=== PATIENT | male | born 1960 | race Caucasian/White ===

== ENCOUNTER → 2020-07-17 14:54 | Outpatient (BNVA) | payer MEDICARE, MEDICAID, SELFPAY | PROVIDERS: PCP Internal Medicine; Referring Provider Internal Medicine; Visit Provider Nurse Practitioner | DX: K75.81 Nonalcoholic steatohepatitis (NASH) (principal); K21.9 Gastro-esophageal reflux disease without esophagitis; R19.7 Diarrhea, unspecified; Z79.899 Other long term (current) drug therapy | CPT/HCPCS: 99213 ==

== ENCOUNTER 2020-07-24 17:14 | Outpatient (REF) | payer MEDICARE, MEDICAID, SELFPAY ==
--- NOTE | 2020-07-24 | XR_ITS ---
EXAMINATION: XR KNEE, RIGHT CLINICAL INFORMATION: Pain COMPARISON: Previous x-ray January 2016 TECHNIQUE: Four views of the right knee. FINDINGS: Bone alignment is normal. No fracture or dislocation is seen. There is arthritis at the patellofemoral joint with joint space narrowing and osteophyte formation. There are large osteophytes at the quadriceps tendon insertion and patellar tendon origin and insertion. There is no joint effusion. IMPRESSION: Degenerative change at the patellofemoral joint and patellar tendon and quadriceps tendon osteophytes.
== END 2020-07-24 17:15 | disposition home or self-care (01) ==
LOC: HO.XRAY 17:14
PROVIDERS: PCP Internal Medicine; Visit Provider Internal Medicine
DX: M25.561 Pain in right knee (principal)
CPT/HCPCS: 73564

== ENCOUNTER 2020-08-19 13:54 | Outpatient (REF) | payer MEDICARE, MEDICAID, SELFPAY ==
--- NOTE | 2020-08-19 13:59 | US_ITS ---
EXAMINATION: US ABDOMEN LIMITED CLINICAL INFORMATION: Nonalcoholic steatohepatitis. COMPARISON: Ultrasound abdomen 01/27/2020 and 12/19/2016. CT abdomen 09/25/2008. TECHNIQUE: Real-time imaging of the right upper quadrant abdominal viscera. FINDINGS: PANCREAS: Normal. LIVER: Liver echotexture is increased suggestive of fatty infiltration. There is a hypoechoic area adjacent to the gallbladder, a characteristic location of focal fatty sparing. The liver is enlarged. The liver is normal in contour. There is no intrahepatic biliary duct dilatation seen. GALLBLADDER: Surgically absent. COMMON BILE DUCT: Normal in caliber measuring 0.5 cm in diameter. RIGHT KIDNEY: Normal. No hydronephrosis. No renal calculi or focal parenchymal lesions. The kidney measures 12.5 cm in maximum dimension. FREE FLUID: None. US/US abdomen limited IMPRESSION: Enlarged echogenic liver suggestive of fatty infiltration.
== END 2020-08-19 13:55 | disposition home or self-care (01) ==
LOC: HO.US 13:54
PROVIDERS: Visit Provider Nurse Practitioner
DX: K75.81 Nonalcoholic steatohepatitis (NASH) (principal)
CPT/HCPCS: 76705

== ENCOUNTER 2020-12-01 | Outpatient (REF) | payer MEDICARE, MEDICAID, SELFPAY ==
--- NOTE | ~2020-12-01 | XR_ITS ---
EXAMINATION: AP STANDING VIEW OF BOTH KNEES WELL SUNRISE AND LATERAL VIEWS OF BOTH KNEES. CLINICAL INFORMATION: Bilateral knee pain COMPARISON: July 24, 2020 and February 09, 2016 TECHNIQUE: AP standing views of both knees as well as sunrise and lateral views of both knees FINDINGS: There is no evidence of acute fracture or dislocation of the right knee. There is narrowing of the lateral facet of the patellofemoral joint with degenerative spurring. There is mild narrowing of the medial joint space compartment of the right knee. No effusion. Patella spurs sites insertion of quadriceps and patellar tendons also noted. 3 views of the left knee do not demonstrate any evidence of acute fracture or dislocation. Medial, lateral, and patellofemoral joint spaces are maintained. There is some spurring about the lateral patellofemoral joint. No effusion appreciated. No significant change seen compared to prior studies. XR/XR knee RT 2V IMPRESSION: Bilateral patellofemoral joint disease right greater than left as described.
--- NOTE | ~2020-12-01 | XR_ITS ---
EXAMINATION: AP STANDING VIEW OF BOTH KNEES WELL SUNRISE AND LATERAL VIEWS OF BOTH KNEES. CLINICAL INFORMATION: Bilateral knee pain COMPARISON: July 24, 2020 and February 09, 2016 TECHNIQUE: AP standing views of both knees as well as sunrise and lateral views of both knees FINDINGS: There is no evidence of acute fracture or dislocation of the right knee. There is narrowing of the lateral facet of the patellofemoral joint with degenerative spurring. There is mild narrowing of the medial joint space compartment of the right knee. No effusion. Patella spurs sites insertion of quadriceps and patellar tendons also noted. 3 views of the left knee do not demonstrate any evidence of acute fracture or dislocation. Medial, lateral, and patellofemoral joint spaces are maintained. There is some spurring about the lateral patellofemoral joint. No effusion appreciated. No significant change seen compared to prior studies. XR/XR knee LT 2V IMPRESSION: Bilateral patellofemoral joint disease right greater than left as described.
--- NOTE | ~2020-12-01 | XR_ITS ---
EXAMINATION: AP STANDING VIEW OF BOTH KNEES WELL SUNRISE AND LATERAL VIEWS OF BOTH KNEES. CLINICAL INFORMATION: Bilateral knee pain COMPARISON: July 24, 2020 and February 09, 2016 TECHNIQUE: AP standing views of both knees as well as sunrise and lateral views of both knees FINDINGS: There is no evidence of acute fracture or dislocation of the right knee. There is narrowing of the lateral facet of the patellofemoral joint with degenerative spurring. There is mild narrowing of the medial joint space compartment of the right knee. No effusion. Patella spurs sites insertion of quadriceps and patellar tendons also noted. 3 views of the left knee do not demonstrate any evidence of acute fracture or dislocation. Medial, lateral, and patellofemoral joint spaces are maintained. There is some spurring about the lateral patellofemoral joint. No effusion appreciated. No significant change seen compared to prior studies. XR/XR knee standing BI IMPRESSION: Bilateral patellofemoral joint disease right greater than left as described.
== END 2020-12-01 00:01 | disposition home or self-care (01) ==
LOC: HO.HOSX
PROVIDERS: Visit Provider Orthopaedic Surgery
DX: M25.562 Pain in left knee (principal); M25.561 Pain in right knee
CPT/HCPCS: 73560; 73565

== ENCOUNTER → 2020-12-01 13:30 | Outpatient (BNVA) | payer MEDICARE, MEDICAID, SELFPAY | PROVIDERS: PCP Internal Medicine; Visit Provider Orthopaedic Surgery | DX: M17.11 Unilateral primary osteoarthritis, right knee (principal) | CPT/HCPCS: 20610; 99202; J1040 ==

== ENCOUNTER → 2021-01-12 14:48 | Outpatient (BNVA) | payer MEDICARE, MEDICAID, SELFPAY | PROVIDERS: Visit Provider Orthopaedic Surgery | DX: M17.11 Unilateral primary osteoarthritis, right knee (principal) | CPT/HCPCS: 99212 ==

== ENCOUNTER 2021-01-21 15:00 | Outpatient (RCR) | payer MEDICARE, MEDICAID, SELFPAY | END 2021-02-19 07:43 | disposition home or self-care (01) | LOC: HO.PTCHIC 15:00 | PROVIDERS: PCP Internal Medicine; Visit Provider Internal Medicine | DX: M25.561 Pain in right knee (principal) | CPT/HCPCS: 97110; 97162; 97530 ==

== ENCOUNTER 2021-03-15 15:56 | Emergency (ER) | payer MEDICARE, MEDICAID, SELFPAY ==
[2021-03-15 16:32] VITALS: BP 147/58; PULSE 73; RESP 20; TEMP 36.3; O2SAT 97; BMI 34.0
[2021-03-15 16:54] LABS: Glucose Urine UA 100 MG/DL (NEG); Leukocyte Esterase Urine NEG (NEG); Nitrite Urine NEG (NEG); Urine Blood NEG (NEG); Urine Ketones NEG (NEG); Urine Protein NEG (NEG-TRACE)
[2021-03-15 16:56] LABS: Appearance Urine CLEAR; Color Urine YELLOW
[2021-03-15 18:08] VITALS: BP 135/71; PULSE 72; RESP 16; TEMP 36.8; O2SAT 96
--- NOTE | 2021-03-15 18:26 | ED_ITS ---
HPI - Back Pain/Injury General Chief Complaint: Back Pain/Injury Stated Complaint: back pain Time Seen by Provider: 03/15/21 17:22 Source: patient Mode of arrival: ambulatory Limitations: no limitations History of Present Illness HPI Narrative: 61 year old male with a past medical history of osteoarthritis, [place], gout, GERD, depression, [id number] diabetes, IBS, chronic back pain here with complaints of acute on chronic right lower back pain times the last 2 months. No new injury or trauma. Patient tells me he has had chronic back pain for years and has had multiple CTs and MRIs which show a ?pinched nerve? taken. It has been recommended that he have cortisone injections but he declined these. He is currently taking gabapentin for pain but his pain is worsening. Pain radiates into bilateral legs with weakness which he has also had for months. No associated numbness, tingling, incontinence. No fevers or chills. The patient is ambulatory. MD elicited complaint: back pain Related Data Home Medications Medication Instructions Recorded Confirmed allopurinol 300 mg tablet 300 mg PO BID 07/17/20 08/13/20 cholecalciferol (vitamin D3) 25 25 mcg PO DAILY 07/17/20 08/13/20 mcg (1,000 unit) tablet clonidine HCl 0.1 mg tablet 0.1 mg PO BID 07/17/20 08/13/20 fenofibrate nanocrystallized 48 mg 48 mg PO DAILY 07/17/20 08/13/20 tablet fluoxetine 20 mg capsule 60 mg PO 07/17/20 07/17/20 gabapentin 800 mg tablet 800 mg PO TID 07/17/20 08/13/20 ibuprofen 800 mg tablet mg PO Q6-8H PRN 07/17/20 07/17/20 lancets 28 gauge #100 ea 07/17/20 07/17/20 magnesium chloride 70 mg 70 mg PO DAILY 07/17/20 08/13/20 (magnesium chloride) tablet,delayed release omeprazole 20 mg capsule,delayed 40 mg PO BID 07/17/20 08/13/20 release simvastatin 10 mg tablet 20 mg PO BEDTIME 07/17/20 08/13/20 triamterene 37.5 1 tab PO DAILY 07/17/20 08/13/20 mg-hydrochlorothiazide 25 mg tablet Previous Rx's Medication Instructions Recorded oxycodone 5 mg PO Q6H PRN #10 tab 05/31/21 Allergies Allergy/AdvReac Type Severity Reaction Status Date / Time prednisone AdvReac Unknown Verified 03/15/21 16:32 Review of Systems Review of Systems: Yes all other systems are reviewed and are negative Constitutional: Constitutional: Reports no additional constitutional complaints, Denies body ache(s), Denies chills, Denies fever(s), Denies headac he(s) and Denies weakness Eyes: Eyes: Reports no additional eye complaints and Denies change in vision ENT: Reports system reviewed and no additional complaints, except as documented, Denies dizziness, Denies headache(s), Denies nasal congestion, Denies nasal discharge and Denies neck pain Cardiovascular: Cardiovascular: Reports no additional cardiovascular complaints, Denies chest pain, Denies leg edema and Denies dyspnea Respiratory: Respiratory: Reports no additional respiratory complaints, Denies cough and Denies dyspnea Gastrointestinal: Gastrointestinal: Reports no additional gastrointestinal complaints, Denies abdominal pain, Denies diarrhea, Denies nausea and Denies vomiting Genitourinary: Genitourinary: Denies urinary incontinence Musculoskeletal: Musculoskeletal: Reports no additional musculoskeletal complaints, Reports back pain, Denies arthralgias, Denies joint swelling, Denies neck pain, Denies numbness and Denies tingling Integumentary/Breasts: Skin/Breast: Reports system reviewed and no additional complaints, except as docu and Denies rash Neurologic: Reports system reviewed and no additional complaints, except as documented, Denies Abnormal speech present, Denies dizziness, Denies headache(s), Denies numbness, Denies tingling and Denies weakness FOR[facility]LY [facility] Past Medical History Attestation statement: The following information was validated with the patient. Source: old records reviewed and nursing notes reviewed Medical History Diabetes mellitus Hepatic steatosis History of alcohol abuse Sleep apnea Testicular cancer Surgical History History of orchiectomy Hx of colonoscopy Hx of neck surgery (~02/2020) S/P orchiectomy Family History Family History Mother Hep C w/ coma, chronic Diabetes Father No problems noted. Brother High blood pressure Social History Social History Alcohol intake: former Substance Use Type: Marijuana Advance Directives: No Advance Directives Information Provided: Yes Current occupation: [employer]aning [employer] Physical Exam Vital Signs: Vital Signs: Last Vital Signs Temp 98.3 F 03/15/21 18:08 Pulse 72 03/15/21 18:08 Resp 16 03/15/21 18:08 BP 135/71 03/15/21 18:08 Pulse Ox 96 03/15/21 18:08 Body Mass Index 34.0 Const: General: cooperative, healthy appearing, comfortable and no acute distress Orientation/consciousness: patient oriented x3 Limitations: no limitations HENMT: Head: Yes normal to inspection Ears: hearing grossly normal bilaterally General nose exam: Normal external nose present Face and sinus: Yes normal facial exam Mouth: Normal oral and palatal mucosa present Throat: Yes posterior oropharynx normal Eyes: General: appearance normal, both eyes and all related structures Pupils: Equal, round and reactive pupils present Neck: Neck: Yes normal visual inspection Chest: Chest palpation & inspection: normal inspection of the chest Resp: Effort & Inspection: normal respiratory effort Auscultation: clear to auscultation bilaterally Cardio: Rate: regular rate Rhythm: regular rhythm Peripheral pulses: Peripheral pulses 2+ throughout GI: Inspection: Yes normal to inspection Palpation (GI): Soft to palpation and nontender Auscultation: normal bowel sounds Back/Spine/Pelvis: Other: There is no midline tenderness in the lumbar spine. No step-offs or deformities Thoracic/Lumbar Spine: thoracic and lumbar spine normal to inspection Sacroiliac joints: on the right tender to palpation, by compression of iliac crest and by passive hyperextension of lower ext Skin: General skin exam: no rashes or lesions noted Neuro: Other: Bilateral lower extremities 4/5 strength General: patient oriented x3, no focal motor deficits and normal sensation to monofilament Cranial nerves: Yes CN's II-XII intact bilaterally, Yes Equal, round and reactive pupils present, Yes Bilaterally intact EOM present, Yes Nystagmus not present, Yes Normal facial strength present and Yes Midline tongue present Cognition (Neuro): normal cognition Speech: No Abnormal speech present Sensory Exam: Normal double simultaneous stimulation for sensation Deep tendon reflexes (DTR's): Right patellar reflex intensity grade: 2+ and Left patellar reflex intensity grade: 2+ Extrem: General: Yes normal to inspection, Yes no pedal edema and Yes no calf tenderness Course Course Course Narrative: 61-year-old male here with acute on chronic low back pain. On exam the patient has no midline tenderness, step-offs or deformities. He does have significant pain over the right SI joint. No neurological deficits or red flag symptoms. No fall or injury requiring imaging. I discussed with the patient that he likely will need a diagnostic test under fluoroscopy with injection and he should follow up with his primary care doctor to request this. In the meantime we discussed a very small amount of narcotic pain medications. Reviewed [employer] with no active narcotics >6 months. Reviewed worrisome signs and symptoms such as progressive weakness, incontinence, paresthesias and when to return to the emergency department. Comfortable discharge home. MDM - Back Pain/Injury Lab Data Labs: Lab Results 03/15/21 Range/Units 16:46 Urine Color YELLOW Urine Appearance CLEAR Urine pH 6.0 (5.0-8.0) Ur Specific [place] 1.020 (1.005-1.025) Urine Protein NEG (NEG-TRACE) MG/DL Urine Glucose (UA) 100 H (NEG) MG/DL Urine Ketones NEG (NEG) MG/DL Urine Blood NEG (NEG) Urine Nitrite NEG (NEG) Ur Leukocyte Esterase NEG (NEG) Discharge Plan Discharge Clinical Impression: SI (sacroiliac) joint inflammation Patient Disposition: Home, Self-Care Instructions: Sacroiliitis (ED), Sacroiliac Joint Injection (DC) Additional Instructions: You have point tenderness over your SI joint. The BEST test and treatment for this is a diagnostic fluoroscopy with injection. This is done by a interventional radiologist and can be set up by your primary care doctor. Heat or ice if helpful. No heavy lifting or bending Prescriptions: New oxycodone 5 mg tablet 5 mg PO Q6H PRN (Reason: pain) Qty: 10 RF: 0 No Action ibuprofen 800 mg tablet PO Q6-8H PRN (Reason: Pain) RF: 0 fluoxetine 20 mg capsule 60 mg PO RF: 0 triamterene-hydrochlorothiazid 37.5-25 mg tablet 1 tab PO DAILY RF: 0 magnesium chloride 70 mg tablet,delayed release (DR/EC) 70 mg PO DAILY RF: 0 cholecalciferol (vitamin D3) 25 mcg (1,000 unit) tablet 25 mcg PO DAILY RF: 0 gabapentin 800 mg tablet 800 mg PO TID RF: 0 (DME) lancets 28 gauge misc See Rx Instructions lancet topical BID Qty: 100 RF: 0 clonidine HCl 0.1 mg tablet 0.1 mg PO BID RF: 0 fenofibrate nanocrystallized 48 mg tablet 48 mg PO DAILY RF: 0 allopurinol 300 mg tablet 300 mg PO BID RF: 0 omeprazole 20 mg capsule,delayed release(DR/EC) 40 mg PO BID RF: 0 simvastatin 10 mg tablet 20 mg PO BEDTIME RF: 0 Referrals: Jud Meza MD [Primary Care Provider] - 2 days
== END 2021-03-15 18:36 | disposition home or self-care (01) ==
PROVIDERS: Emergency Medicine Emergency Medical Services; Emergency Provider Emergency Medicine; PCP Internal Medicine
DX: M46.1 Sacroiliitis, not elsewhere classified (principal); E11.9 Type 2 diabetes mellitus without complications; E78.00 Pure hypercholesterolemia, unspecified; K75.81 Nonalcoholic steatohepatitis (NASH); M17.11 Unilateral primary osteoarthritis, right knee; F12.90 Cannabis use, unspecified, uncomplicated; Z85.47 Personal history of malignant neoplasm of testis; Z79.899 Other long term (current) drug therapy; Z79.02 Long term (current) use of antithrombotics/antiplatelets
CPT/HCPCS: 81003; 99283; 99284

== ENCOUNTER → 2021-03-23 14:18 | Outpatient (BNVA) | payer MEDICARE, MEDICAID, SELFPAY | PROVIDERS: PCP Internal Medicine; Visit Provider Orthopaedic Surgery | DX: M17.11 Unilateral primary osteoarthritis, right knee (principal) | CPT/HCPCS: 20610; 99212; J1040 ==

== ENCOUNTER → 2021-04-08 13:19 | Outpatient (BNVA) | payer MEDICARE, MEDICAID, SELFPAY | PROVIDERS: PCP Internal Medicine; Visit Provider Anesthesiology | DX: M46.1 Sacroiliitis, not elsewhere classified (principal); M53.3 Sacrococcygeal disorders, not elsewhere classified; M47.817 Spondylosis without myelopathy or radiculopathy, lumbosacral region; G89.4 Chronic pain syndrome | CPT/HCPCS: 99212 ==

== ENCOUNTER 2021-06-08 07:40 | Outpatient (REF) | payer MEDICARE, MEDICAID, SELFPAY ==
--- NOTE | ~2021-06-08 | FL_ITS ---
EXAMINATION: XR FLUOROSCOPY WITH IMAGES CLINICAL INFORMATION: M53.3 - Sacrococcygeal disorders, not elsewhere classified COMPARISON: Fluoroscopic spot view 05/12/2020 TECHNIQUE: Fluoroscopy performed by Yelena Hernandez NP. Fluoroscopy time: 0.1 minutes DAP: 2.9 Gycm2 Images: 1 FINDINGS: There is a spinal needle overlying lower right sacroiliac joint. There is nonspecific contrast seen in the soft tissues. There may be contrast in a sacral neural sheath. No vascular communication. FL/FL guidance in treatment room IMPRESSION: Fluoroscopy for pain management procedure.
== END 2021-06-08 07:41 | disposition home or self-care (01) ==
LOC: HO.RADIR 07:40
PROVIDERS: Visit Provider Anesthesiology
DX: M53.3 Sacrococcygeal disorders, not elsewhere classified (principal); M47.817 Spondylosis without myelopathy or radiculopathy, lumbosacral region; G89.4 Chronic pain syndrome
CPT/HCPCS: 27096; J3300; Q9967

== ENCOUNTER → 2021-06-28 17:04 | Outpatient (BNVA) | payer MEDICARE, MEDICAID, SELFPAY | PROVIDERS: PCP Internal Medicine; Visit Provider Anesthesiology | DX: M46.1 Sacroiliitis, not elsewhere classified (principal); M53.3 Sacrococcygeal disorders, not elsewhere classified; M47.817 Spondylosis without myelopathy or radiculopathy, lumbosacral region; G89.4 Chronic pain syndrome | CPT/HCPCS: Q3014 ==

== ENCOUNTER 2021-09-08 14:08 | Outpatient (REF) | payer MEDICARE, MEDICAID, SELFPAY ==
--- NOTE | ~2021-09-08 | US_ITS ---
EXAMINATION: US SOFT TISSUE OF THE NECK CLINICAL INFORMATION: Swelling of salivary gland. COMPARISON: None TECHNIQUE: Linear transducer grayscale and color Doppler examination of the left parotid gland. Comparison images of the right parotid gland were performed. FINDINGS: There are 2 focal lesions seen in the left parotid gland probably representing intraparotid lymph nodes. These measure 1.2 x 0.7 x 1.0 cm and 1.4 x 1.0 x 1.2 cm. There is a solitary lesion in the right parotid gland also probably representing a lymph node. This measures 1.3 x 0.6 x 0.4 cm. US/US soft tiss head and/or neck IMPRESSION: Bilateral parotid lesions probably representing intraparotid lymph nodes.
== END 2021-09-08 14:09 | disposition home or self-care (01) ==
LOC: HO.HMGCX 14:08
PROVIDERS: PCP Internal Medicine; Visit Provider Internal Medicine
DX: R22.1 Localized swelling, mass and lump, neck (principal)
CPT/HCPCS: 76536

== ENCOUNTER 2021-11-17 14:36 | Outpatient (REF) | payer MEDICARE, MEDICAID, SELFPAY ==
--- NOTE | ~2021-11-17 | MR_ITS ---
EXAMINATION: MRI OF THE RIGHT FOOT WITHOUT CONTRAST CLINICAL INFORMATION: Right ankle and foot pain. Calcific tendinitis. COMPARISON: Radiographs dated 08/25/2017. TECHNIQUE: Multiplanar MR imaging was obtained through the right foot without contrast material on a 1.5 Cinda magnet. FINDINGS: ACHILLES TENDON: There is a large enthesopathic spur at the Achilles tendon insertion with associated marrow edema. A partial-thickness insertional tear of the Achilles involves the deep fibers measures 0.7 x 0.7 cm in area, involving approximately 15% of the tendon cross-section. The tendon is thickened in this region, consistent with tendinosis. There is reactive subcortical edema at the greater tuberosity as well as mild retrocalcaneal bursitis. OTHER TENDONS: Mild peroneus brevis tendinosis. No significant tears. Extensor and medial flexor tendons are normal. LIGAMENTS: Anterior talofibular ligament is mildly thickened and irregular, potentially due to a prior sprain. No tears. Punctate ossific fragments in the region of the deltoid ligament likely correlate with an old avulsion injury. No acute deltoid tears or sprains. Spring ligament is normal. BONE AND ARTICULAR CARTILAGE: As noted above, there is focal marrow edema signal in the calcaneal tuberosity posteriorly at the Achilles tendon insertion. Large enthesopathic spur. Moderate-sized enthesopathic spur is present at the plantar fascial origin. Talocrural and subtalar joints appear relatively well preserved. JOINT FLUID AND SOFT TISSUES: There is edema signal within K[place]'s fat pad posteriorly near the Achilles tendon insertion. No significant joint effusion. MR/MR foot RT wo con IMPRESSION: 1. Large, edematous enthesopathic spur at the Achilles tendon insertion with a small insertional partial tear of the deep fibers and associated tendinosis. There is associated reactive calcaneal marrow edema at the insertion as well as mild retrocalcaneal bursitis. No appreciable Elvin deformity. 2. Mild peroneus brevis tendinosis.
--- NOTE | ~2021-11-17 | MR_ITS ---
EXAMINATION: MR LUMBAR SPINE WITHOUT CONTRAST CLINICAL INFORMATION: 61-year-old with lumbar radiculopathy. COMPARISON: 01/02/2020 MRI. TECHNIQUE: MRI of the lumbar spine was obtained using routine sequences without contrast. FINDINGS: CORONAL ALIGNMENT: Normal. SAGITTAL ALIGNMENT: Normal. LUMBOSACRAL JUNCTION: Normal. S1-S2 is a rudimentary intervertebral disc space. VERTEBRAL BODIES: Well maintained. DISC SPACES AND ENDPLATES: Mild disc volume loss with disc desiccation noted at L5-S1 similar to previous study. Remaining intervertebral disc space heights are well maintained stable in appearance with moderate degrees of anterior marginal spondylosis between L1-L2 and L4-L5 inclusive stable in appearance. Minimal degrees of disc desiccation are seen throughout the remainder of the lumbar spine unchanged. SPINAL CANAL: No abnormal developmental findings. BONE MARROW: No significant marrow-replacing process or bone marrow edema. 2 cm benign vertebral hemangioma within the L2 vertebral body stable in appearance. Small, subcentimeter, nonspecific intramedullary lesion in the S2 vertebral segments stable in appearance from previous exam likely a benign finding. CONUS MEDULLARIS: Terminates at L1-L2. Morphology and signal is normal. INTRADURAL NERVE ROOTS: Within normal limits. L5-S1: Mild disc bulging is similar to the previous exam. [id number] facet arthropathy and ligamentum flavum thickening are grossly similar. On the current study, note is made of a new 7 mm crescent-shaped T2 hyperintensity along the medial aspect of the right facet joint suggesting a small synovial cyst which has developed since the previous study, encroaching on the right subarticular recess. A sequestered disc fragment is thought to be less likely. There is severe narrowing of the right subarticular zone and probable compromise of the traversing right S1 nerve root. Redemonstrated is moderate narrowing of the left subarticular zone. Moderate central spinal canal stenosis is noted on current study in the transverse plane. There is mild bilateral neural foraminal narrowing without exiting neural impingement unchanged. L4-L5: Disc bulging again noted similar to the previous exam with flattening of the ventral dural sac. Ligamentum flavum thickening and moderate bilateral facet arthropathy similar to the previous exam with [id number] symmetric subarticular recess stenosis stable in appearance and mild central spinal canal stenosis stable in appearance. There is mild right-sided neural foraminal stenosis stable in appearance. L3-L4: Slight annular bulging again noted. [id number] facet arthropathy right more than left and ligamentum flavum thickening are stable. No significant canal stenosis. Mild right-sided neural foraminal stenosis is stable in appearance. L2-L3: Normal disc contour. No significant facet arthrosis, canal or neural foraminal stenosis. L1-L2: Normal disc contour. No facet arthrosis, canal or neural foraminal stenosis. PARASPINAL/RETROPERITONEAL: The paravertebral soft tissues appear unremarkable. MR/MR lumbar spine wo con IMPRESSION: 1. Stable multilevel spondylosis and stable predominately L5-S1 discogenic degenerative change. Stable multilevel disc bulging and bilateral facet arthropathy. 2. Development of what appears to be a small synovial cyst along the medial aspect of the right L5-S1 facet joint versus, less likely, a sequestered disc fragment, now contributing to severe right subarticular recess stenosis and probable right S1 nerve root impingement and now with moderate central spinal canal stenosis which has developed since the previous exam, with stable moderate left subarticular recess stenosis and stable mild bilateral neural foraminal stenosis. 3. Stable mild central spinal canal stenosis and [id number] bilateral subarticular recess stenosis at L4-L5 and stable mild right-sided neural foraminal stenosis. 4. Stable mild right-sided neural foraminal stenosis at L3-L4.
== END 2021-11-17 14:37 | disposition home or self-care (01) ==
LOC: HO.MRI 14:36
PROVIDERS: PCP Internal Medicine; Visit Provider Internal Medicine
DX: M54.16 Radiculopathy, lumbar region (principal); M65.271 Calcific tendinitis, right ankle and foot
CPT/HCPCS: 72148; 73718

== ENCOUNTER 2022-08-05 13:56 | Outpatient (REF) | payer MEDICARE, MEDICAID, SELFPAY ==
--- NOTE | ~2022-08-05 | US_ITS ---
EXAMINATION: US RETROPERITONEAL LIMITED (RENAL ONLY) CLINICAL INFORMATION: Chronic kidney disease, stage I. COMPARISON: Ultrasound abdomen limited 08/19/2020. Ultrasound abdomen complete 01/27/2020. TECHNIQUE: Real-time imaging of the kidneys. FINDINGS: RIGHT KIDNEY: 12.3 x 4.8 x 6.1 cm (SAG x AP x TRV). The kidney is normal in size, contour, and echogenicity. Renal cortical thickness is normal. No calculi or focal parenchymal lesions. No hydronephrosis. LEFT KIDNEY: 12.5 x 5.9 x 5.7 cm (SAG x AP x TRV). The kidney is normal in size, contour, and echogenicity. Renal cortical thickness is normal. There is a small cyst in the midpole measuring 1 x 0.7 x 0.8 cm. No renal calculi or hydronephrosis. The liver is echogenic. US/US renal BI IMPRESSION: Small left renal cyst otherwise unremarkable exam.
== END 2022-08-05 13:57 | disposition home or self-care (01) ==
LOC: HO.US 13:56
PROVIDERS: Visit Provider Internal Medicine
DX: N18.1 Chronic kidney disease, stage 1 (principal)
CPT/HCPCS: 76775

== ENCOUNTER 2023-01-02 13:29 | Outpatient (REF) | payer MEDICARE, MEDICAID, SELFPAY ==
--- NOTE | ~2023-01-02 | XR_ITS ---
EXAMINATION: XR WRIST, LEFT CLINICAL INFORMATION: Wrist pain COMPARISON: None available. TECHNIQUE: Left wrist is imaged in 4 views. FINDINGS: There is no acute or healing fracture, dislocation, destructive process. The ulnar variance is neutral. There is no erosive change or chondrocalcinosis. There are some borderline degenerative changes lateral carpus at the triscaphe joint. Spurring is present at the lateral base second metacarpal. XR/XR wrist LT min 3V IMPRESSION: -No fracture, dislocation, or erosive change. -Borderline degenerative changes lateral carpus at triscaphe joint. -Spurring lateral base second metacarpal.
--- NOTE | ~2023-01-02 | XR_ITS ---
EXAMINATION: XR LUMBOSACRAL SPINE CLINICAL INFORMATION: Back pain. COMPARISON: X-ray lumbosacral spine March 2019. MRI lumbar sacral spine November 2021. TECHNIQUE: 3 views of the lumbosacral spine. FINDINGS: Vertebral bodies normally aligned. There is endplate osteophytes and/or syndesmophytes noted throughout the lumbar region unchanged compared to prior. Mild disc space narrowing at the L5-S1 level indicative of mild degenerative disc disease but unchanged. Facets are unremarkable. Surrounding bones and joints unremarkable. XR/XR lumbar spine 2-3V IMPRESSION: 1. Mild spondylosis of lumbosacral spine unchanged 2. No acute abnormality.
== END 2023-01-02 13:30 | disposition home or self-care (01) ==
LOC: HO.XRAY 13:29
PROVIDERS: PCP Internal Medicine; Visit Provider Family Medicine
DX: M47.819 Spondylosis without myelopathy or radiculopathy, site unspecified (principal); M25.532 Pain in left wrist
CPT/HCPCS: 72100; 73110

== ENCOUNTER 2023-07-06 14:38 | Outpatient (REF) | payer MEDICARE, MEDICAID, SELFPAY ==
--- NOTE | ~2023-07-06 | MR_ITS ---
EXAMINATION: MR LUMBAR SPINE WITHOUT CONTRAST CLINICAL INFORMATION: Worsening radiculopathy to lower limb COMPARISON: MRI lumbar spine 11/17/2021 TECHNIQUE: MRI of the lumbar spine was obtained using routine sequences without contrast. FINDINGS: Normal anatomic alignment. No suspicious marrow signal or focal osseous lesion. L2 vertebral body hemangioma. The vertebral body heights are maintained. Disc dessication from L3-4 from L5-S1. The conus medullaris terminates at the level of L1-2. The distal spinal cord is normal in appearance. The cauda equina nerve roots appear normal. Partial ankylosis of the sacroiliac joints. No significant abnormalities of the paraspinal musculature. Limited evaluation of the intra-abdominal structures without significant abnormalities. The abdominal aorta is of normal contour and caliber. SPINAL LEVELS: L1-L2: No significant spinal canal or neuroforaminal narrowing. L2-L3: No significant spinal canal or neuroforaminal narrowing. L3-L4: Mild to moderate facet arthropathy, right greater than left. Shallow disc bulge. No significant spinal canal stenosis. Stable mild right neuroforaminal narrowing. L4-L5: Severe right and moderate facet arthropathy. Ligamentum flavum thickening. Minimal disc bulge. Stable mild central spinal canal stenosis, bilateral subarticular zone narrowing, and mild bilateral neural foraminal narrowing. L5-S1: Moderate facet arthropathy. Minimal disc bulge. Ligamentum flavum thickening with interval resolution of T2 hyperintensity on the right as demonstrated on the previous exam which was suspicious for a synovial cyst. There is persistent bilateral subarticular zone narrowing with likely mass effect on the traversing S1 nerve roots which is slightly decreased on the right compared to the prior examination. No significant neural foraminal narrowing. MR/MR lumbar spine wo con IMPRESSION: 1. At L5-S1, there is persistent bilateral subarticular zone narrowing with mass effect on the traversing S1 nerve roots, slightly decreased on the right compared to the prior examination with resolution of previously suspected right-sided synovial cyst. 2. At L4-L5, there is stable mild spinal canal stenosis, bilateral subarticular zone narrowing, and mild bilateral neural foraminal narrowing. 3. Additional milder degenerative changes of the lumbar spine as described above appears stable compared to MRI from 11/17/2021.
== END 2023-07-06 14:39 | disposition home or self-care (01) ==
LOC: HO.MRI 14:38
PROVIDERS: PCP Internal Medicine; Visit Provider Internal Medicine
DX: M54.50 Low back pain, unspecified (principal); G89.29 Other chronic pain
CPT/HCPCS: 72148

== ENCOUNTER 2025-01-02 15:53 | Outpatient (REF) | payer MEDICARE, MEDICAID, SELFPAY ==
[2025-01-02 18:36] LABS: Anion Gap 14 (12-20); Blood Urea Nitrogen 16 mg/dL (9-16); Calcium 9.1 mg/dL (8.4-10.2); Carbon Dioxide 24 mmol/L (22-29); Chloride 105 mmol/L (96-108); Estimated Glomerular Filt Rate > 60; Glucose Random 200 mg/dL (60-115); Potassium 3.8 mmol/L (3.3-5.1); Sodium 139 mmol/L (135-145)
== END 2025-01-02 15:54 | disposition home or self-care (01) ==
LOC: HO.CHCLDS 15:53
PROVIDERS: Visit Provider Internal Medicine
DX: E87.6 Hypokalemia (principal)
CPT/HCPCS: 36415; 80048

== ENCOUNTER 2025-02-17 13:54 | Outpatient (REF) | payer MEDICARE, MEDICAID, SELFPAY ==
--- OUTSIDE RECORDS SUMMARY | 2025-02-17 15:26 | XMS_ITS | Encounter Summary ---
Author Organization [employer] Address [address] [facility] 7 [place] [address] Care Team Providers Care Senior Games Technician Name Role Phone Jud Meza MD Primary Care Provider [phone] Emilia Reyez PharmD Unavailable [phone] Reason for Visit * Reason Comments Med Refill Encounter Details Date Type Department Care Team ([facility] st Contact Info) Description 02/12/2025 Refill [facility] CHC MED & PEDS [address] [place] [address] Jud Meza MD [address] [place] [address] Social History Tobacco Use Types Packs/Day Years Used Date Smoking Tobacco: Never Smokeless Tobacco: Never Depression Answer Date Recorded Patient Health Questionnaire-9 Score 9 01/02/2025 Patient Health Questionnaire-9 Score 9 01/02/2025 Last PHQ-9: Questionnaire Data Not on file 0 01/02/2025 Housing Stability Answer Date Recorded What is your housing situation today? I have melissa siegel 01/02/[address] you li ve. Do you have problems with any of the following? None of the above 01/02/2025 Food Insecurity Answer Date Recorded Within the past 12 months, y ou worried that your food would run out before you got money to buy more: Never True 01/02/2025 Within the past 12 months,th e food you bought just didn't last and you didn't have enough money to get more: Never True Transportation Answer Date Recorded In the past 12 months, has l ack of transportation kept you from medical appts, meetings, work or from getting things needed for daily living? No 01/02/2025 Utilities Answer Date Recorded In the past 12 months, has t he electric, gas, oil or water company threatened to shut off services in your home? No 01/02/2025 Depression Answer Date Recorded Patient Health Questionnaire-2 Score 4 01/02/2025 Internet Access Answer Date Recorded Internet Access Q1 Yes 01/02/2025 Internet Access Q2 Not on file 01/02/2025 Sex and Gender Information Value Date Recorded Sex Assigned at Male 08/15/2022 10:21 AM EDT Legal Sex Male 10:21 AM EDT Gender Identity Male 08/15/2022 10:21 AM EDT Sexual Orientation Straight 08/15/2022 10 :21 AM EDT documented as of this encounter Plan of Treatment Upcoming Encounters Date Type Department Care Team (Late st Contact Info) Description 03/11/2025 3:00 PM EDT Medication Management [facility] MED & PEDS [address] [place] [address] Emilia Reyez PharmD [address] [place] [address] 04/21/2025 2:30 PM EDT Telemedicine [facility] MED & PEDS [address] [place] [address] Danyelle Juares, RN [address] [place] [address] documented as of this encounter Visit Diagnoses Not on filedocumented in this encounter Additional Health Concerns Assessment Noted Time PHQ-9 Depression Total Score: 9 01/03/20 25 3:46 PM EDT documented as of this encounter Care Teams Senior Games Technician Relationship Specialty Start Date End Date Jud Meza MD [address] [place] [address] PCP - General Internal Medicine 12/16/11 Emilia Reyez, PharmD [address] [place] [address] Pharmacist Internal Medicine 02/11/25 documented as of this encounter
--- OUTSIDE RECORDS SUMMARY | 2025-02-17 15:26 | XMS_ITS | Encounter Summary ---
Author Organization [employer] Address [address] [facility] [address] [place] [address] Care Team Providers Care Industrial Gas Servicer Helper Name Role Phone Jud Meza MD Primary Care Provider Emilia Reyez PharmD Unavailable [phone] Reason for Referral * Consultation (Routine) - Pending Review Specialty Diagnoses / Procedures Referred By Reuben regan Referred To Contact Pharmacy Diagnoses Diabetes mellitus due to underlying condition with hyperglycemia, without long-term current use of insulin (CMS/HCC) Jud Meza MD [address] [place] [address] Phone: tel: fax: Referral ID Status Reason Start Date Expiration Date Visits Requested Visits Authorized [id number] Pending Review Consult and Treat 01/21/2025 01/21/2026 6 6 Encounter Details Date Type Department Care Team (Late st Contact Info) Description 01/21/2025 Orders Only [facility] CHC MED & PEDS [address] [place] [address] Jud Meza MD [address] [place], [place] [phone] Diabetes mellitus due to underlying condition with hyperglycemia, without long-term current use of insulin (CMS/HCC) (Primary Dx) Social History Tobacco Use Types Packs/Day Years [...] Upcoming Encounters Date Type Department Care Team ([facility] st Contact Info) Description 03/11/2025 3:00 PM EDT Medication Management [facility] MED & PEDS [address] [place] [address] Emilia Reyez PharmD [address] [place] [address] 04/21/2025 2:30 PM EDT Telemedicine [facility] MED & PEDS [address] [place] [address] Danyelle Juares, RN [address] [place] [address] Scheduled Referrals Name Type Priority Associated Diagnoses Orde r Schedule Referral to Pharmacy CDTM Outpatient Referral Routine Diabetes mellitus due to underlying condition with hyperglycemia, without long-term current use of insulin ([facility]) Ordered: 01/21/2025 documented as of this encounter Visit Diagnoses Diagnosis Diabetes mellitus due to underlying condition with hyperglycemia, without long- term current use of insulin ([facility])- Primary documented in this encounter Additional Health Concerns Assessment Noted Time PHQ-9 Depression Total Score: 9 01/03/20 3:46 PM EDT documented as of this encounter Care Teams Industrial Gas Servicer Helper Relationship Specialty Start Date End Date Jud Meza MD [address] [place] [address] PCP - General Internal Medicine 12/16/11 Emilia Reyez PharmD [address] [place] [address] Pharmacist Internal Medicine 02/11/25 documented as of this encounter
--- OUTSIDE RECORDS SUMMARY | 2025-02-17 15:26 | XMS_ITS ---
Author Name [facility] Organization Unknown Encounters Encounter Type Encounter Reason Primary Diagnosis Location Date Ambulatory [facility] 03/08/2024
--- OUTSIDE RECORDS SUMMARY | 2025-02-17 15:26 | XMS_ITS | Encounter Summary ---
Author Organization [employer] Address [address] [facility] 7t [place] [address] Care Team Providers Care Roof Tiler Name Role Phone Jud Meza MD Primary Care Provider [phone] Emilia Reyez PharmD Unavailable [phone] Reason for Visit * Reason Onset Date Comments Referral 03/21/2024 Encounter Details Date Type Department Care Team ([facility] st Contact Info) Description 03/21/2024 Telephone [facility] MEDICINE [address] [place] [address] Jud Meza MD [address] [place] [address] Referral Social History Tobacco Use Types Packs/Day Years Used Date Smoking Tobacco: Never Smokeless Tobacco: Never Housing Stability Answer Date Recorded What is your housing situation today? I have melissacamelia siegel 07/31/[address] you li ve. Do you have problems with any of the following? None of the above 07/31/2023 Food Insecurity Answer Date Recorded Within the past 12 months, y ou worried that your food would run out before you got money to buy more: Never True 07/31/2023 Within the past 12 months,th e food you bought just didn't last and you didn't have enough money to get more: Never True Transportation Answer Date Recorded In the past 12 months, has l ack of transportation kept you from medical appts, meetings, work or from getting things needed for daily living? No 07/31/2023 Utilities Answer Date Recorded In the past 12 months, has t he electric, gas, oil or water company threatened to shut off services in your home? No 07/31/2023 Depression Answer Date Recorded Patient Health Questionnaire-2 Score 2 03/06/2023 Sex and Gender Information Value Date Recorded Sex Assigned at Male 08/15/2022 10:21 AM EDT Legal Sex Male 10:21 AM EDT Gender Identity Male 08/15/2022 10:21 AM EDT Sexual Orientation Straight 08/15/2022 10 :21 AM EDT documented as of this encounter Miscellaneous Notes * Telephone Encounter - Chelsie Bennett - 03/22/2024 10:20 AM EDT Referral faxed to office requested. * Telephone Encounter - Cong Paz - 03/21/2024 3:00 PM EDT Tc from patient calling to request the referral for the orthopedic surgery to be sent to [facility] [place], [place] fax # [phone] patient stated has already made a appt for 06/11 @ 2pm documented in this encounter Plan of Treatment Upcoming Encounters Date Type Department Care Team (Late st Contact Info) Description 03/11/2025 3:00 PM EDT Medication Management [facility] MED & PEDS [address] [place] [address] Emilia Reyez PharmD [address] [place] [address] 04/21/2025 2:30 PM EDT Telemedicine [facility] MED & PEDS [address] [place] [address] Danyelle Juares RN [address] [place] [address] documented as of this encounter Visit Diagnoses Not on filedocumented in this encounter Care Teams Roof Tiler Relationship Specialty Start Date End Date Jud Meza MD [address] [place] [address] PCP - General Internal Medicine 12/16/11 Emilia Reyez PharmD [address] [place] [address] Pharmacist Internal Medicine 02/11/25 documented as of this encounter
--- OUTSIDE RECORDS SUMMARY | 2025-02-17 15:26 | XMS_ITS ---
Author Organization [facility] [facility] Address [address] [facility] [address] [place] [address] Care Team Providers Care Lard Tub Washer Name Role Phone Ivan Rollins Primary Care Provider Ismael Berg Unavailable [phone] REASON FOR VISIT 30 min EMG LLE - left foot drop Encounters Encounter Location Date Provider Diagnosis [facility] [employer] [facility] [address] [facility] [address] [place] [address] 09/03/2024 Ismael Thompson Plan Of Treatment No Information Progress Notes * Torito CHAMBERLAINDOB:1960 (65 yo M)Acc No.[id number]:09/03/2024 Patient:?Torito CHAMBERLAIN Provider:?Ismael Thompson MD :1960???Age:64 Y???Sex:Male Manolo e:09/03/2024 Address:[address] [place] [address], [address], [facility] Pcp:Ivan Rollins Subjective: * Chief Complaints: * ???1. 30 min EMG LLE - left foot drop. * Medical History:? Objective: * Vitals:? Assessment: Plan: * Treatment: * * Electronic signature of James Thompson MD on 02/17/2025 at 12:04 PM EDT Sign off status: Pending * Provider:?Ismael Thompson MD Date:?09/03 Generated for Tuan whitney/Milton/eTsatnamsmitting on:?02/17/2025 12:04 PM EDT
--- OUTSIDE RECORDS SUMMARY | 2025-02-17 15:26 | XMS_ITS | Encounter Summary ---
Author Organization [employer] Address [address] [facility] 7 [place] [address] Care Team Providers Care Record Press Supervisor Name Role Phone Jud Meza MD Primary Care Provider Emilia Reyez PharmD Unavailable [phone] Reason for Visit * Reason Onset Date Comments Appointment Request 01/29/2025 Encounter Details Date Type Department Care Team (Late st Contact Info) Description 01/29/2025 Telephone [facility] MEDICINE [address] [place] [address] Jud Meza MD [address] [place] [address] Appointment Request Social History Tobacco Use Types Packs/Day Years Used Date Smoking Tobacco: Never Smokeless Tobacco: Never Depression Answer Date Recorded Patient Health Questionnaire-9 Score 9 01/02/2025 Patient Health Questionnaire-9 Score 9 01/02/2025 Last PHQ-9: Questionnaire Data Not on file 0 01/02/2025 Housing Stability Answer Date Recorded What is your housing situation today? I have melissa sing 01/02/[address] you li [...] encounter Miscellaneous Notes * Telephone Encounter - Gifty Patterson - 01/29/2025 2:54 PM EDT Tc from pt requesting r/s 01/28 Derm appointment with Derrick. documented in this encounter Plan of Treatment Upcoming Encounters Date Type Department Care Team ([facility] st Contact Info) Description 03/11/2025 3:00 PM EDT Medication Management [facility] MED & PEDS [address] [place] [address] Emilia Reyez PharmD [address] [place] [address] 04/21/2025 2:30 PM EDT Telemedicine [facility] MED & PEDS [address] [place] [address] Danyelle Juares, LALO [address] [place] [address] documented as of this encounter Visit Diagnoses Not on filedocumented in this encounter Additional Health Concerns Assessment Noted Time PHQ-9 Depression Total Score: 9 01/03/20 25 3:46 PM EDT documented as of this encounter Care Teams Record Press Supervisor Relationship Specialty Start Date End Date Jud Meza MD [address] [place] [address] PCP - General Internal Medicine 12/16/11 Emilia Reyez, AmenaD [address] [place] [address] Pharmacist Internal Medicine 02/11/25 documented as of this encounter
--- OUTSIDE RECORDS SUMMARY | 2025-02-17 15:26 | XMS_ITS | Encounter Summary ---
Author Organization [employer] Address [address] [facility] 7 [place] [address] Care Team Providers Care Production Superintendent Hydro Name Role Phone Jud Meza MD Primary Care Provider [phone] Emilia Reyez PharmD Unavailable Reason for Referral * Neurology (Routine) - Closed Specialty Diagnoses / Procedures Referred By Reuben regan Referred To Contact Diagnoses Left foot drop Procedures Nerve conduction test Jud Meza MD [address] [place] [address] Phone: tel: fax: [address] Phone: tel: fax: Referral ID Status Reason Start Date Expiration Date Visits Re quested Visits Authorized [id number] Closed 10/18/2024 10/18/2025 1 1 Encounter Details Date Type Department Care Team (Late st Contact Info) Description 10/18/2024 Orders Only [facility] CHC MED & PEDS [address] [place] [address] Jud Meza MD [address] [place] [address] Left foot drop (Primary Dx) Social History Tobacco Use Types Packs/Day Years Used Date Smoking Tobacco: Never Smokeless Tobacco: Never Housing Stability Answer Date Recorded What is your housing situation today? I have melissa siegel 07/31/[address] you [...] Description 03/11/2025 3:00 PM EDT Medication Management [facility] MED & PEDS [address] [place] [address] Emilia Reyez, PharmD [address] [place] [address] 04/21/2025 2:30 PM EDT Telemedicine [facility] MED & PEDS [address] [place] [address] Danyelle Juares, LALO [address] [place] [address] Scheduled Orders Name Type Priority Associated Diagnoses Orde r Schedule Nerve conduction test Neurology Routine Left foot drop Expected: 10/18/2024 (Approximate), Expires: 10/18/2025 documented as of this encounter Visit Diagnoses Diagnosis Left foot drop- Primary Other acquired deformity of ankle and foot documented in this encounter Care Teams Production Superintendent Hydro Relationship Specialty Start Date End Date Jud Meza MD [address] [place] [address] PCP - General Internal Medicine 12/16/11 Emilia Reyez PharmD [address] [place] [address] Pharmacist Internal Medicine 02/11/25 documented as of this encounter
--- OUTSIDE RECORDS SUMMARY | 2025-02-17 15:26 | XMS_ITS | Encounter Summary ---
Author Organization [employer] Address [address] [facility] 7 [place] [address] Care Team Providers Care First Assistant Manager Name Role Phone Jud Meza MD Primary Care Provider Emilia Reyez PharmD Unavailable [phone] Reason for Visit * Reason Onset Date Comments Med Refill 09/27/2022 Encounter Details Date Type Department Care Team (Late st Contact Info) Description 09/27/2022 Telephone [facility] MEDICINE [address] [place] [address] Jud Meza MD [address] [place] [address] Med Refill Social History Tobacco Use Types Packs/Day Years Used Date Smoking Tobacco: Never Assessed Sex and Gender Information Value Date Recorded Sex Assigned at Male 08/15/2022 10:21 AM EDT Legal Sex Male 10:21 AM EDT Gender Identity Male 08/15/2022 10:21 AM EDT Sexual Orientation Straight 08/15/2022 10 :21 AM EDT documented as of this encounter Miscellaneous Notes * Telephone Encounter - Torito Noyola - 09/30/2022 11:49 AM EST Tc from pt requesting med refill ( Gabapentin 800 mg ) Last seen on 09/06/[address] Meza * Telephone Encounter - Dione Johnson - 09/27/2022 2:42 PM EST Tc from pt requesting refill on medication percocet 5mg [facility] st tello sfld * Telephone Encounter - Torito Noyola - 09/27/2022 10:16 AM EST Tc from requesting to r/s appt on 09/28/22 televisit ( r/s from 09/14/2022, LR. (BS Log) documented in this encounter Plan of Treatment Upcoming Encounters Date Type Department Care Team (Late st Contact Info) Description 03/11/2025 3:00 PM EDT Medication Management [facility] MED & PEDS [address] [place] [address] Emilia Reyez PharmD [address] [place] [address] 04/21/2025 2:30 PM EDT Telemedicine [facility] MED & PEDS [address] [place] [address] Danyelle Juares, LALO [address] [place] [address] documented as of this encounter Visit Diagnoses Not on filedocumented in this encounter Care Teams First Assistant Manager Relationship Specialty Start Date End Date Jud Meza MD [address] [place] [address] PCP - General Internal Medicine 12/16/11 Emilia Reyez PharmD [address] [place] [address] Pharmacist Internal Medicine 02/11/25 documented as of this encounter
--- OUTSIDE RECORDS SUMMARY | 2025-02-17 15:26 | XMS_ITS | Encounter Summary ---
Author Organization [employer] Address [address] [facility] 7t [place] [address] Care Team Providers Care Command Post Superintendent Name Role Phone Jud Meza MD Primary Care Provider [phone] Emilia Reyez PharmD Unavailable [phone] Encounter Details Date Type Department Care Team ([facility] st Contact Info) Description 11/21/2024 Orders Only [facility] CHC MED & PEDS [address] [place] [address] Jud Meza MD [address] [place] [address] Neuropathy (Primary Dx) Social History Tobacco Use Types [...] Description 03/11/2025 3:00 PM EDT Medication Management [facility] MED & PEDS [address] [place] [address] Emilia Reyez PharmD [address] [place] [address] 04/21/2025 2:30 PM EDT Telemedicine [facility] MED & PEDS [address] [place] [address] Danyelle Juares RN [address] [place] [address] documented as of this encounter Visit Diagnoses Diagnosis Neuropathy- Primary Mononeuritis of unspecified site documented in this encounter Care Teams Command Post Superintendent Relationship Specialty Start Date End Date Jud Meza MD [address] [place] [address] PCP - General Internal Medicine 12/16/11 Emilia Reyez PharmD [address] [place] [address] Pharmacist Internal Medicine 02/11/25 documented as of this encounter
--- OUTSIDE RECORDS SUMMARY | 2025-02-17 15:26 | XMS_ITS | Encounter Summary ---
Author Organization [employer] Address [address] [place] [address] 7 [place] [address] Care Team Providers Care Senior Quality Technician Name Role Phone Jud Meza MD Primary Care Provider Emilia Reyez PharmD Unavailable [phone] Encounter Details Date Type Department Care Team (Latest Contact Info) Description 04/26/2019 Abstract [facility] CONVERSIONS Dental, Provider, DDS Social History Tobacco Use Types Packs/Day Years [...] 03/11/2025 3:00 PM EDT Medication Management [facility] MED & PEDS [address] [place] [address] Emilia Reyez, PharmD [address] [place] [address] 04/21/2025 2:30 PM EDT Telemedicine [facility] MED & PEDS [address] [place] [address] Danyelle Juares, RN [address] [place] [address] documented as of this encounter Visit Diagnoses Not on filedocumented in this encounter Care Teams Senior Quality Technician Relationship Specialty Start Date End Date Jud Meza MD [address] [place] [address] PCP - General Internal Medicine 12/16/11 Emilia Reyez PharmD [address] [place] [address] Pharmacist Internal Medicine 02/11/25 documented as of this encounter
--- OUTSIDE RECORDS SUMMARY | 2025-02-17 15:26 | XMS_ITS | Encounter Summary ---
Author Organization [employer] Address 75 [facility] 7t [place] [address] Care Team Providers Care Atm Servicer Name Role Phone Jud Meza MD Primary Care Provider [phone]- [phone] Emilia Reyez PharmD Unavailable [phone] Encounter Details Date Type Department Care Team ([facility] st Contact Info) Description 11/05/2024 Orders Only [facility] MED & PEDS [address] [place] [address] Provider, MD Ruben Social History Tobacco Use Types Packs/Day Years [...] Description 03/11/2025 3:00 PM EDT Medication Management [facility] MED & PEDS [address] [place] [address] Emilia Reyez PharmD [address] [place] [address] 04/21/2025 2:30 PM EDT Telemedicine [facility] MED & PEDS [address] [place], [place] [phone] Danyelle Juares RN 505 [place], [place] [phone] documented as of this encounter Procedures Procedure Name Priority Date/Time Associated Diagnosis Comments XR CHEST 2 VIEWS Routine 11/02/2024 3:46 PM EST ECG 12-LEAD Routine 11/02/2024 10:00 AM EST documented in this encounter Results * XR Chest 2 Views (11/02/2024 3:46 PM EST) Anatomical Region Laterality Modality Chest Radiographic Di ging Historical Provider IMG XR PROCEDURES Final R esult * ECG 12 lead (11/02/2024 10:00 AM EST) Historical Provider ECG ORDERABLES Final Res ult documented in this encounter Visit Diagnoses Not on filedocumented in this encounter Care Teams Atm Servicer Relationship Specialty Start Date End Date Jud Meza MD 505 [place] [address] PCP - General Internal Medicine 12/16/11 Emilia Reyez PharmD [address] [place] [address] Pharmacist Internal Medicine 02/11/25 documented as of this encounter
--- OUTSIDE RECORDS SUMMARY | 2025-02-17 15:26 | XMS_ITS | Encounter Summary ---
Author Organization [employer] Address 75 [facility] 7 [place] [address] Care Team Providers Care Delivery Driver/Customer Service Name Role Phone Jud Meza MD Primary Care Provider [phone] Emilia Reyez PharmD Unavailable [phone] Reason for Visit * Reason Onset Date Comments Med Refill 01/21/2025 Encounter Details Date Type Department Care Team (Late st Contact Info) Description 01/21/2025 Telephone [facility] 230 [place] [address] Jud Meza MD 505 [place] [address] Med Refill Social History Tobacco Use Types [...] * Telephone Encounter - Gifty Patterson - 01/21/2025 2:07 PM EDT TC from pt requesting medication refill. Medications needing refill : oxyCODONE-acetaminophen (Percocet) 5-325 MG tablet To be sent to: [facility]/pharmacy #[id number] [facility] [place] [address] [address] [facility] [employer] documented in this encounter Plan of Treatment Upcoming Encounters Date Type Department Care Team ([facility] st Contact Info) Description 03/11/2025 3:00 PM EDT Medication Management [facility] MED & PEDS 505 [place] [address] Emilia Reyez, PharmD 230 [place] [address] 04/21/2025 2:30 PM EDT Telemedicine [facility] MED & PEDS 505 [place] [address] Danyelle Juares, RN 505 [place] [address] documented as of this encounter Visit Diagnoses Not on filedocumented in this encounter Additional Health Concerns Assessment Noted Time PHQ-9 Depression Total Score: 9 01/03/20 3:46 PM EDT documented as of this encounter Care Teams Delivery Driver/Customer Service Relationship Specialty Start Date End Date Jud Meza MD 505 [place] [address] PCP - General Internal Medicine 12/16/11 Emilia Reyez PharmD [address] [place] [address] Pharmacist Internal Medicine 02/11/25 documented as of this encounter
--- OUTSIDE RECORDS SUMMARY | 2025-02-17 15:26 | XMS_ITS | Encounter Summary ---
Author Organization [employer] Address 75 [facility] 7 [place] [address] Care Team Providers Care Public Health Educator Name Role Phone Jud Meza MD Primary Care Provider [phone] Emilia Reyez PharmD Unavailable [phone] Reason for Visit * Reason Comments Med Change Request Encounter Details Date Type Department Care Team ([facility] st Contact Info) Description 05/14/2024 Refill [facility] CHC MED & PEDS [address] [place], [place] [phone] Jud Meza MD [address] [place], [place] [phone] Diabetes mellitus due to underlying condition with hyperglycemia, without long-term current use of insulin ([facility]) Social History Tobacco Use Types Packs/Day Years [...] Description 03/11/2025 3:00 PM EDT Medication Management [facility] MED & PEDS [address] [place] [address] Emilia Reyez PharmD 230 [place] [address] 04/21/2025 2:30 PM EDT Telemedicine [facility] MED & PEDS [address] [place] [address] Danyelle Juares RN [address] [place], [place] documented as of this encounter Visit Diagnoses Diagnosis Diabetes mellitus due to underlying condition with hyperglycemia, without long- term current use of insulin ([facility]) documented in this encounter Care Teams Public Health Educator Relationship Specialty Start Date End Date Jud Meza MD 505 [place] [address] PCP - General Internal Medicine 12/16/11 Emilia Reyez PharmD [address] [place], [place] [phone] Pharmacist Internal Medicine 02/11/25 documented as of this encounter
--- OUTSIDE RECORDS SUMMARY | 2025-02-17 15:26 | XMS_ITS | Clinical Summary ---
Author Organization [facility] Address [address] [place] [phone] Phone Care Team Providers Care Geographic Information Systems Engineer Name Role Phone uJd Meza MD Primary Care Provider [phone] Allergies Active Allergy Reactions Criticality Noted Date Comments Prednisone 10/29/2019 Social History Tobacco Use Types Packs/Day Years Used Date Smoking Tobacco: Never Smokeless Tobacco: Never Tobacco Cessation:Counseling Given: Not Answered Sex and Gender Information Value Date Recorded Sex Assigned at Not on file Legal Sex Male 12:20 AM EST Gender Identity Not on file Sexual Orientation Not on file Obstetrics History Last Filed Vital Signs Vital Sign Reading Time Taken Comments Blood Pressure 127/67 11/02/2024 8:13 AM EST Pulse 66 11/02/2024 8:13 AM EST Temperature 36.6 ??C (97.9 ??F) 11/02/2024 5:42 AM ES T Respiratory Rate 16 11/02/2024 8:13 AM EST Oxygen Saturation 95% 11/02/2024 8:13 AM EST Inhaled Oxygen Concentration - - Weight 122 kg (270 lb) 11/02/2024 5:05 AM EST Height 190.5 cm (6' 3 ) 11/02/2024 5:05 AM EST Body Mass Index 33.75 11/02/2024 5:05 AM EST Plan of Treatment Health Maintenance Due Date Last Done Comments Diabetes: Annual Foot Exam 1971 Diabetes: Annual Retina Eye Exam 1971 Pneumococcal Vaccine: 50+ Years (1 of 1 - PCV) 2011 Zoster Vaccines (1 of 2) 2011 Colorectal Cancer Screening: Colonoscopy 06/10/2024 Depression Screening 06/10/2024 HIV Screening 06/10/2024 Hepatitis C Screening 06/10/2024 Medicare Annual Wellness Visit 06/10/2024 Social Influencers of Health Screening 06/10/2024 COVID-19 Vaccine (3 - 2023-2 5 season) 2024 04/30/2021, 04/06/2021 Diabetes: Annual Urine Albumin-Creatinine Ratio (uACR) 11/02/2024 Diabetes: Blood Sugar Contro l Test (HGBA1C) 11/14/2024 05/14/2024 Influenza Vaccine (Season Ended) 2025 09/21/2016 Diabetes: Annual GFR (Glomerular Filtration Rate) 11/02/2025 11/02/2024 Hypertension/CHF/CAD Annual BMP Blood Test 11/02/2025 11/02/2024 DTaP,Tdap,and Td Vaccines (2 - Td or Tdap) 01/27/2026 01/28/2016 Cholesterol Screening (Lipid Panel) 07/01/2027 07/01/2022 RSV Immunization Adult Patients (1 - 1-dose 75+ series) 01/07/2036 HIB Vaccines Aged Out No longer eligi ble based on patient's age to complete this topic HPV Vaccines Aged Out No longer eligi ble based on patient's age to complete this topic Hepatitis A Vaccines Aged Out No long er eligible based on patient's age to complete this topic Hepatitis B Vaccines Aged Out No long er eligible based on patient's age to complete this topic IPV Vaccines Aged Out No longer eligi ble based on patient's age to complete this topic MMR Vaccines Aged Out No longer eligi ble based on patient's age to complete this topic Meningococcal ACWY Vaccine Aged Out N o longer eligible based on patient's age to complete this topic Meningococcal B Vaccine Aged Out No l onger eligible based on patient's age to complete this topic Pneumococcal Vaccine: Pediatrics (0 to 5 Years) and At-Risk Patients (6 to 64 Years) Aged Out No longer eligible b ased on patient's age to complete this topic RSV Immunization Patients Under 20 months Aged Out No longer eligible b ased on patient's age to complete this topic Varicella Vaccines Aged Out No longer eligible based on patient's age to complete this topic Procedures Procedure Name Priority Date/Time Associated Diagnosis Comments BASIC METABOLIC PANEL STAT 11/02/2024 5:41 AM EST from Last 3 Months or Most Recently Relevant to Health Maintenance Results * (ABNORMAL) Basic metabolic panel (11/02/2024 5:41 AM EST) Sodium 135 133 - 145 mmol/L LAB CHEMISTRY METHOD 11/02/2024 6:[address] [facility] Potassium 3.3(L) 3.5 - 5.5 mmol/L LAB CHEMISTRY METHOD 11/02/2024 6:[address] [facility] Chloride 100 96 - 110 mmol/L LAB CHEMISTRY METHOD 11/02/2024 6:[address] [facility] CO2 28 21 - 32 mmol/L LAB CHEMISTRY METHOD 11/02/2024 6:[address] [facility] Anion Gap 7 3 - 11 LAB CHEMISTRY METHOD 11/02/2024 6:[address] [facility] Glucose 216(H) 70 - 100 mg/dL LAB CHEMISTRY METHOD 11/02/2024 6:[address] [facility] BUN 17 5 - 25 mg/dL LAB CHEMISTRY METHOD 11/02/2024 6:[address] [facility] Creatinine 0.94 0.70 - 1.30 mg/dL LAB CHEMISTRY METHOD 11/02/2024 6:[address] [facility] eGFR 91 >=60 mL/min/1. 73m2 LAB CHEMISTRY METHOD 11/02/2024 6:[address] [facility] Comment:Calculation based on the??Chronic Kidney Disease Epidemiology Collaboration (CKD-EPI) equation refit??without adjustment for race. BUN/Creatinine Ratio 18.1 LAB CHEMISTRY METHOD 11/02/2024 6:[address] [facility] Calcium 8.7 8.5 - 10.5 mg/dL LAB CHEMISTRY METHOD 11/02/2024 6:[address] [facility] Blood Venous blood specimen / Unknown Venipuncture / Unknown 11/02/2024 5:41 AM EST 11/02/2024 5:56 AM EST Judith Villarreal MD LAB BLOOD ORDERABLES Fin al Result [facility] [address] [place] [address], from Last 3 Months or Most Recently Relevant to Health Maintenance Insurance MEDICARE MEDICAID - [place] Care Teams Geographic Information Systems Engineer Relationship Specialty Start Date End Date Jud Meza MD [address] [place] [address] PCP - General Internal Medicine 04/15/19
--- OUTSIDE RECORDS SUMMARY | 2025-02-17 15:26 | XMS_ITS | Encounter Summary ---
Author Organization [employer] Address 75 [facility] 7 [place] [address] Care Team Providers Care Paraoptometric Name Role Phone Jud Meza MD Primary Care Provider Emilia Reyez PharmD Unavailable [phone] Reason for Visit * Reason Onset Date Comments Appointment Request 01/05/2023 Encounter Details Date Type Department Care Team (Late st Contact Info) Description 01/05/2023 Telephone [facility] MEDICINE [address] [place] [address] Jud Meza MD [address] [place] [address] Appointment Request Social History Tobacco Use Types Packs/Day Years Used Date Smoking Tobacco: Never Assessed Sex and Gender Information Value Date Recorded Sex Assigned at Male 08/15/2022 10:21 AM EDT Legal Sex Male 10:21 AM EDT Gender Identity Male 08/15/2022 10:21 AM EDT Sexual Orientation Straight 08/15/2022 10 :21 AM EDT COVID-19 Exposure Response Date Recorded In the last 10 days, have yo u been in contact with someone who was confirmed or suspected to have Coronavirus/COVID-19? No / Unsure 12/26/2022 1:57 PM EDT documented as of this encounter Miscellaneous Notes * Telephone Encounter - Torito Nyoola - 01/05/2023 2:28 PM EDT Tc from pt requesting to r/s appt on 01/10/23 ( [employer] [place] ) Please contact pt at [phone] documented in this encounter Plan of Treatment Upcoming Encounters Date Type Department Care Team ([facility] st Contact Info) Description 03/11/2025 3:00 PM EDT Medication Management [facility] MED & PEDS [address] [place] [address] Emilia Reyez PharmD [address] [place] [address] 04/21/2025 2:30 PM EDT Telemedicine [facility] MED & PEDS 505 [place] [address] Danyelle Juares, LALO [address] [place] [address] documented as of this encounter Visit Diagnoses Not on filedocumented in this encounter Care Teams Paraoptometric Relationship Specialty Start Date End Date Jud Meza MD [address] [place] [address] PCP - General Internal Medicine 12/16/11 Emilia Reyez PharmD [address] [place] [address] Pharmacist Internal Medicine 02/11/25 documented as of this encounter
--- OUTSIDE RECORDS SUMMARY | 2025-02-17 15:26 | XMS_ITS | Encounter Summary ---
Author Organization [employer] Address 75 [facility] 7t [place] [address] Care Team Providers Care Rf Design Engineer Name Role Phone Jud Meza MD Primary Care Provider [phone] Emilia Ryeez PharmD Unavailable [phone] Reason for Visit * Reason Onset Date Comments Durable Medical Equipment 07/05/2024 Encounter Details Date Type Department Care Team (Late st Contact Info) Description 07/05/2024 Telephone [facility] MEDICINE [address] [place] [address] Jud Meza MD [address] [place] [address] Durable Medical Equipment Social History Tobacco Use Types Packs/Day Years [...] encounter Miscellaneous Notes * Telephone Encounter - Yesenia Scott LPN - 07/08/2024 11:28 AM EDT Please review message below and advise. If agreed will need DX and documentation to support this need Tc from patient requesting a script for a Power wheel chair * Telephone Encounter - Cong Paz - 07/05/2024 2:49 PM EDT Tc from patient requesting a script for a Power wheel chair documented in this encounter Plan of Treatment Upcoming Encounters Date Type Department Care Team (Late st Contact Info) Description 03/11/2025 3:00 PM EDT Medication Management [facility] MED & PEDS [address] [place] [address] Emilia Reyez PharmD [address] [place] [address] 04/21/2025 2:30 PM EDT Telemedicine [facility] MED & PEDS [address] [place] [address] Danyelle Juares RN [address] [place] [address] documented as of this encounter Visit Diagnoses Not on filedocumented in this encounter Care Teams Rf Design Engineer Relationship Specialty Start Date End Date Jud Meza MD [address] [place] [address] PCP - General Internal Medicine 12/16/11 Emilia Reyez, [place] [address] [place] [address] Pharmacist Internal Medicine 02/11/25 documented as of this encounter
--- OUTSIDE RECORDS SUMMARY | 2025-02-17 15:26 | XMS_ITS | Encounter Summary ---
Author Organization [employer] Address 75 [facility] 7 [place] [address] Care Team Providers Care Green Chainer Name Role Phone Jud Meza MD Primary Care Provider Emilia Reyez PharmD Unavailable [phone] Reason for Referral * Consultation (Routine) - Closed Specialty Diagnoses / Procedures Referred By Reuben regan Referred To Contact Orthopaedic Surgery Diagnoses Chronic midline low back pain, unspecified whether sciatica present Spondylosis without myelopathy Jud Meza MD [address] [place] [address] Phone: tel: fax: Referral ID Status Reason Start Date Expiration Date V isits Requested Visits Authorized [id number] Closed Specialty Services Required 03/12/2024 03/12/2025 1 1 Encounter Details Date Type Department Care Team (Late st Contact Info) Description 03/12/2024 Orders Only [facility] CHC MED & PEDS [address] [place] [address] Jud Meza MD [address] [place] [address] Chronic midline low back pain, unspecified whether sciatica present (Primary Dx); Spondylosis without myelopathy Social History Tobacco Use Types Packs/Day Years [...] Description 03/11/2025 3:00 PM EDT Medication Management [facility] MED & PEDS [address] [place] [address] Emilia Reyez, PharmD [address] [place] [address] 04/21/2025 2:30 PM EDT Telemedicine [facility] MED & PEDS [address] [place] [address] Danyelle Juares, RN [address] [place] [address] Scheduled Referrals Name Type Priority Associated Diagnoses Orde r Schedule Referral to Orthopaedic Surgery Outpatient Referral Routine Chronic midline low back pain, unspecified whether sciatica present Spondylosis without myelopathy Expected: 03/12/2024 (Approximate), Expires: 03/12/2025 documented as of this encounter Visit Diagnoses Diagnosis Chronic midline low back pain, unspecified whether sciatica present- Primary Spondylosis without myelopathy Spondylosis of unspecified site without mention of myelopathy documented in this encounter Care Teams Green Chainer Relationship Specialty Start Date End Date Jud Meza MD [address] [place] [address] PCP - General Internal Medicine 12/16/11 Emilia Reyez PharmD [address] [place] [address] Pharmacist Internal Medicine 02/11/25 documented as of this encounter
--- OUTSIDE RECORDS SUMMARY | 2025-02-17 15:26 | XMS_ITS | Encounter Summary ---
Author Organization [employer] Address 75 [facility] 7 [place] [address] Care Team Providers Care Steno Typist Name Role Phone Jud Meza MD Primary Care Provider [phone] Emilia Reyez PharmD Unavailable [phone] Reason for Visit * Reason Comments Med Change Request Encounter Details Date Type Department Care Team ([facility] st Contact Info) Description 03/28/2024 Refill [facility] CHC MED & PEDS [address] [place], [place] [phone] Jud Meza MD [address] [place] [address] Diabetes mellitus due to underlying condition with hyperglycemia, without long-term current use of insulin ([facility]) Social History Tobacco Use Types Packs/Day Years [...] [facility] MED & PEDS [address] [place] [address] Emilia Reyez PharmD [address] [place] [address] 04/21/2025 2:30 PM EDT Telemedicine [facility] MED & PEDS [address] [place] [address] Danyelle Juares RN [address] [place], [place] documented as of this encounter Visit Diagnoses Diagnosis Diabetes mellitus due to underlying condition with hyperglycemia, without long- term current use of insulin ([facility]) documented in this encounter Care Teams Steno Typist Relationship Specialty Start Date End Date Jud Meza MD [address] [place] [address] PCP - General Internal Medicine 12/16/11 Emilia Reeyz PharmD [address] [place], [place] [phone] Pharmacist Internal Medicine 02/11/25 documented as of this encounter
--- OUTSIDE RECORDS SUMMARY | 2025-02-17 15:26 | XMS_ITS | Encounter Summary ---
Author Organization [employer] Address 75 [facility] 7t [place] [address] Care Team Providers Care Cattle Feeder Name Role Phone Jud Meza MD Primary Care Provider Emilia Reyez PharmD Unavailable [phone] Reason for Visit * Reason Onset Date Comments Med Refill 09/06/2023 Encounter Details Date Type Department Care Team (Late st Contact Info) Description 09/06/2023 Telephone [facility] MEDICINE [address] [place] [address] Jud Meza MD [address] [place] [address] Med Refill Social History Tobacco Use Types [...] encounter Miscellaneous Notes * Telephone Encounter - Cong Paz - 09/06/2023 12:20 PM EST Tc from patient requesting a medication refill for oxyCODONE-acetaminophen (Percocet) 5-325 MG tablet. documented in this encounter Plan of Treatment Upcoming Encounters Date Type Department Care Team (Late st Contact Info) Description 03/11/2025 3:00 PM EDT Medication Management [facility] MED & PEDS [address] [place] [address] Emilia Reyez PharmD [address] [place] [address] 04/21/2025 2:30 PM EDT Telemedicine [facility] MED & PEDS [address] [place] [address] Danyelle Juares, LALO [address] [place] [address] documented as of this encounter Visit Diagnoses Not on filedocumented in this encounter Care Teams Cattle Feeder Relationship Specialty Start Date End Date Jud Meza MD [address] [place] [address] PCP - General Internal Medicine 12/16/11 Emilia Reyez PharmD [address] [place] [address] Pharmacist Internal Medicine 4/29/25 documented as of this encounter
--- OUTSIDE RECORDS SUMMARY | 2025-02-17 15:26 | XMS_ITS | Encounter Summary ---
Author Organization [employer] Address 75 [facility] 7t [place] [address] Care Team Providers Care Constitutional Law Professor Name Role Phone Jud Meza MD Primary Care Provider [phone] Emilia Reyez PharmD Unavailable [phone] Reason for Visit * Reason Onset Date Comments Med Refill 06/11/2024 Encounter Details Date Type Department Care Team (Late st Contact Info) Description 06/11/2024 Telephone [facility] [address] [place] [address] Jud Meza MD [address] [place] [address] Med Refill Social History Tobacco Use Types [...] encounter Miscellaneous Notes * Telephone Encounter - Ed Johnson - 06/11/2024 11:29 AM EDT TC from pt requesting medication refill. Medications needing refill: oxyCODONE-acetaminophen (Percocet) 5-325 MG tablet To be sent to: [facility]/pharmacy #[id number] - [place], [place] - [address] [facility] documented in this encounter Plan of Treatment Upcoming Encounters Date Type Department Care Team (Late st Contact Info) Description 03/11/2025 3:00 PM EDT Medication Management [facility] MED & PEDS [address] [place] [address] Emilia Reyez PharmD [address] [place] [address] 04/21/2025 2:30 PM EDT Telemedicine [facility] MED & PEDS [address] [place] [address] Danyelle Juares, LALO [address] [place] [address] documented as of this encounter Visit Diagnoses Not on filedocumented in this encounter Care Teams Constitutional Law Professor Relationship Specialty Start Date End Date Jud Meza MD [address] [place] [address] PCP - General Internal Medicine 12/16/11 Emilia Reyez PharmD [address] [place] [address] Pharmacist Internal Medicine 02/11/25 documented as of this encounter
--- OUTSIDE RECORDS SUMMARY | 2025-02-17 15:26 | XMS_ITS | Clinical Summary ---
Author Organization [facility] Address [address] [place] [address] Care Team Providers Care Upholsterer Helper Name Role Phone Jud Meza MD Primary Care Provider [phone] Medications Allopurinol (ZYLOPRIM) 300 MG tablet Take 300 mg by mouth 2 (two) times a day. 07/03/2024 Active DIVALPROEX SODIUM, MIGRAINE, (DEPAKOTE ER) 500 MG 24 hr tablet Take 500 mg by mouth 2 (two) times a day if needed. 07/02/2024 Active cloNIDine HCl (CATAPRES) 0.1 MG tablet Take 0.1 mg by mouth 2 (two) times a day. Active clonazePAM (KlonoPIN) 0.5 MG tablet Take 0.5 mg by mouth 2 (two) times a day. 07/02/2024 Active Gabapentin (NEURONTIN) 800 MG tablet Take 800 mg by mouth 3 (three) times a day. Active Losartan Potassium (COZAAR) 25 MG tablet Take 25 mg by mouth 1 (one) time each day. Active Simvastatin (ZOCOR) 20 MG tablet Take 20 mg by mouth every night. 12/18/2023 Active Active Problems No known active problems Immunizations Name Administration Dates Next Due COVID-19, mRNA (Pfizer Pre F all 2022) Monovalent, 30 mcg/0.3 ml 04/30/2021,04/06/2021 Influenza,injectable,quad,preservative 6 Tdap 01/28/2016 Social History Tobacco Use Types Packs/Day Years Used Date Smoking Tobacco: Never Assessed Sex and Gender Information Value Date Recorded Sex Assigned at Male 03/21/2024 2:39 PM EDT Legal Sex Male 2:37 PM EDT Gender Identity Male 03/21/2024 2:39 PM EDT Sexual Orientation Not on file Plan of Treatment Health Maintenance Due Date Last Done Comments Hepatitis C Screening 1961 Colon Cancer Screening 2006 Pneumococcal 50+ years (1 of 1 - PCV) 2011 Zoster (Shingrix) (1 of 2) 2011 COVID-19 Vaccine (3 - season) 2024 04/30/2021, 04/06/2021 Influenza (Season Ended) 2025 09/21/2016 DTaP/Tdap/Td (2 - Td or Tdap) 01/27/2026 01/28/2016 RSV (1 - 1-dose 75+ series) 01/07/2036 LDL Cholesterol Discontinued 05/14/2024, 06/16, 07/01/2022, Additional history exists HPV Vaccine Aged Out No longer eligi ble based on patient's age to complete this topic Hep A Aged Out No longer eligi ble based on patient's age to complete this topic Hep B Aged Out No longer eligi ble based on patient's age to complete this topic Hib Aged Out No longer eligi ble based on patient's age to complete this topic Meningococcal ACWY Aged Out No longer eligible based on patient's age to complete this topic Zoster (Zostavax) Discontinued Insurance [address] [place] [address] MEDICARE PART B MEDICAID Care Teams Upholsterer Helper Relationship Specialty Start Date End Date Jud Meza MD [address] [address] PCP - General Internal Medicine 03/21/24
--- OUTSIDE RECORDS SUMMARY | 2025-02-17 15:26 | XMS_ITS | Encounter Summary ---
Author Organization [employer] Address [address] [facility] [address] [place] [address] Care Team Providers Care Therapeutic Specialist Name Role Phone Jud Meza MD Primary Care Provider [phone] Emilia Reyez PharmD Unavailable [phone] Reason for Visit * Reason Onset Date Comments Med Refill 03/03/2023 Encounter Details Date Type Department Care Team ([facility] st Contact Info) Description 03/03/2023 Telephone [facility] [address] [place], [place] [phone] Jud Meza MD [address] [place], [place] [phone] Med Refill Social History Tobacco Use Types Packs/Day Years Used Date Smoking Tobacco: Never Assessed Depression Answer Date Recorded Patient Health Questionnaire-2 [...] suspected to have Coronavirus/COVID-19? No / Unsure 03/06/2023 11:23 AM EDT documented as of this encounter Miscellaneous Notes * Telephone Encounter - Danyelle Graham RN - 03/03/2023 12:55 PM EDT Rx sent to the pharmacy on 03/01/23. * Telephone Encounter - Alejandra Coyne - 03/03/2023 12:07 PM EDT Tc from patient requesting a med refill on medication oxycodone [address] Meza documented in this encounter Plan of Treatment Upcoming Encounters Date Type Department Care Team (Late st Contact Info) Description 03/11/2025 3:00 PM EDT Medication Management [facility] [address] [place] [address] Emilia Reyez PharmD [address] [place], [place] [phone] 04/21/2025 2:30 PM EDT Telemedicine [facility] [address] [place] [address] Danyelle Juares, LALO [address] [place] [address] documented as of this encounter Visit Diagnoses Not on filedocumented in this encounter Care Teams Therapeutic Specialist Relationship Specialty Start Date End Date Jud Meza MD [address] [place] [address] PCP - General Internal Medicine 12/16/11 Emilia Reyez PharmD [address], [place] [phone] Pharmacist Internal Medicine 02/11/25 documented as of this encounter
--- OUTSIDE RECORDS SUMMARY | 2025-02-17 15:26 | XMS_ITS | Encounter Summary ---
Author Organization [facility] Address [address] [place] [id number] Care Team Providers Care Packing Shed Supervisor Name Role Phone Jud Meza MD Primary Care Provider [phone] Reason for Visit * Reason Comments Return Call Encounter Details Date Type Department Care Team ([facility] st Contact Info) Description 07/12/2024 Telephone [facility] Orthopedic Surgery [address] [place] [phone] Anthony Castillo MD [address] [place] [address] Return Call Social History Tobacco Use Types Packs/Day Years Used Date Smoking Tobacco: Never Assessed Sex and Gender Information Value Date Recorded Sex Assigned at Male 03/21/2024 2:39 PM EDT Legal Sex Male 2:37 PM EDT Gender Identity Male 03/21/2024 2:39 PM EDT Sexual Orientation Not on file documented as of this encounter Miscellaneous Notes * Telephone Encounter - Suresh Srinivasan LVN LPN - 07/15/2024 12:38 PM EDT Please book patient for VV with MD to discuss results * Telephone Encounter - Anthony Castillo MD - 07/15/2024 12:29 PM EDT We are supposed to have a VV follow up * Telephone Encounter - Suresh Srinivasan LVN LPN - 07/15/2024 12:24 PM EDT Report and images in chart for review. * Telephone Encounter - Alena Peck - 07/12/2024 3:33 PM EDT The patient spouse called to go over MRI results. Call back number is [phone]. documented in this encounter Plan of Treatment Not on file documented as of this encounter Visit Diagnoses Not on filedocumented in this encounter Care Teams Packing Shed Supervisor Relationship Specialty Start Date End Date Jud Meza MD [address] [phone] PCP - General Internal Medicine 03/21/24 documented as of this encounter
--- OUTSIDE RECORDS SUMMARY | 2025-02-17 15:26 | XMS_ITS | Clinical Summary ---
Author Organization [employer] Address [address] [facility] [address] [place] [address] Care Team Providers Care Chief Compliance Officer Name Role Phone Jud Meza MD Primary Care Provider Emilia Reyez PharmD Unavailable [phone] Allergies Active Allergy Reactions Criticality Noted Date Comments Prednisone 10/29/2019 Medications * This document contains information received from the source organization and may not represent a complete record from that organization. Dextrose, Diabetic Use, (glucose) 1 g chewable tablet ( If FS is less than 70 mg/dl ) not to exceed more than 4gm per day 2016 Active loperamide (Imodium) 2 MG capsule take 2 capsule by oral route after 1st loose stool, followed by 1 capsule after each subsequent loose stool not to exceed 16 mg/day as needed for loos stools 2020 Active Magnesium Cl-Calcium Carbonate 71.5-119 MG tablet delayed-release take 1 tab daily 2020 Active meclizine (Antivert) 12.5 MG tablet take 1 tablet by oral route 3 times every day as needed 2019 Active naloxone (Narcan) 4 mg/0.1 mL nasal spray spray 0.1 milliliter by intranasal route in 1 nostril may repeat dose every 2-3 minutes as needed alternating nostrils with each dose 2021 Active Sunscreens (Total Block SPF 60 Cover Up) lotion To use daily on the face 2020 Active Blood Glucose Monitoring Suppl (FreeStyle Lite) w/Device kitIndications:Dx DM E11.65 Test 1 time by subcutaneous route once a day Active FLUoxetine (PROzac) 20 MG capsule Take 60 mg by mouth in the morning. 2021 Active cloNIDine (Catapres) 0.1 MG tablet Take 0.1 mg by mouth 2 times daily. 2021 Active acetaminophen (Tylenol) 500 MG tabletIndications:Arth ralgia of both lower legs take 1 tablet by oral route every 8 hours as needed as needed for pain 30 tablet 3 2022 Active betamethasone valerate (Valisone) 0.1 % ointmentIndications:Hx of nummular eczema Apply topically if needed in the morning and at bedtime (dryness). 15 g 2022 Active triamcinolone (Kenalog) 0.1 % cream Apply topically 2 times daily. 80 g 11 2023 Active simvastatin (Zocor) 20 MG tabletIndications:Pure hypercholesterolemia TAKE 1 TABLET BY MOUTH ONCE DAILY IN EVENING 90 tablet 3 2023 Active losartan (Cozaar) 25 MG tabletIndications:Diab etes mellitus due to underlying condition with hyperglycemia, without long-term current use of insulin (CMS/HCC) Take 1 tablet (25 mg) by mouth Once per day. 30 tablet 11 04/05 Active glucose blood (FREESTYLE LITE) test stripIndications:Type 2 diabetes mellitus with hyperglycemia (CMS/HCC) USE TO TEST BLOOD SUGAR ONCE A DAY 50 strip 5 2023 Active FreeStyle lancetsIndications:Typ e 2 diabetes mellitus with hyperglycemia (CMS/HCC) USE TO TEST BLOOD SUGAR ONCE A DAY. E11.65 100 each 3 2023 Active omeprazole (PriLOSEC) [address] capsule TAKE 1 CAPSULE BY MOUTH TWICE A DAY 180 capsule 3 2023 Active fenofibrate (Tricor) 48 MG tabletIndications:Pure hypercholesterolemia TAKE 1 TABLET BY MOUTH EVERY DAY 90 tablet 3 2023 Active allopurinol (Zyloprim) 300 MG tablet TAKE 1 TABLET BY MOUTH TWICE A DAY 180 tablet 3 2023 Active gabapentin (Neurontin) 800 MG tabletIndications:Sample Card Maker miguel right-sided low back pain with bilateral sciatica TAKE 1 TABLET BY MOUTH THREE TIMES A DAY 90 tablet 11 2023 Active b complex vitamins capsuleIndications:Fabian ropathy Take 1 capsule by mouth Once per day. 30 capsule 11 11/21 Active betamethasone, augmented, (Diprolene) 0.05 % ointmentIndications:Ec zema craquele Apply topically 2 times daily. 15 g 2024 Active repaglinide (Prandin) 2 MG tabletIndications:Diab etes mellitus due to underlying condition with hyperglycemia, without long-term current use of insulin (CMS/HCC) Take 1 tablet (2 mg) by mouth before breakfast, before lunch, and before evening meal. 90 tablet 11 01/02 Active DULoxetine (Cymbalta) [address] capsuleIndications:Tin gling in extremities,Diabetic peripheral neuropathy (CMS/HCC),Uncontrolled type 2 diabetes mellitus with hyperglycemia, without long-term current use of insulin (CMS/HCC) Take 1 capsule (20 mg) by mouth 2 times daily. Do not crush or chew. 60 capsule 11 01/02 Active oxyCODONE-acetaminophe n (Percocet) 5-325 MG tabletIndications:Sample Card Maker miguel pain syndrome Take 1 tablet by mouth every 8 (eight) hours if needed for severe pain for up to 15 days. 45 tablet 02/19 Active clonazePAM (KlonoPIN) 0.5 MG tablet Take 1 tablet by mouth 2 times daily. 2024 Active latanoprost (Xalatan) 0.005 % ophthalmic solution INSTILL 1 DROP INTO BOTH EYES EVERY DAY AT NIGHT 2024 Active QUEtiapine (SEROquel) 25 MG tablet TAKE 1 TABLET BY MOUTH DAILY,X30 DAYS NEEDED FOR AGITATION 2024 Active Dulaglutide (Trulicity) 0.75 MG/0.5ML solution auto-injector Inject 0.75 mg under the skin 1 (one) time per week. 2 mL 2 2024 Active triamterene-hydrochlor othiazide (Maxzide-25) 37.5-25 MG tablet TAKE 1 TABLET BY MOUTH EVERY DAY 90 tablet 3 2024 Active glucose blood (FreeStyle InsuLinx Test) test strip Use 1 by To Skin route every day 02/11 Discontinued( Med list cleanup (will not trigger notification to Pharmacy)) triamterene (Dyrenium) 50 MG capsule take 1 capsule by oral route every day after a meal 02/11 Discontinued( Med list cleanup (will not trigger notification to Pharmacy)) gabapentin (Neurontin) 800 MG tabletIndications:Sample Card Maker miguel right-sided low back pain with bilateral sciatica TAKE 1 TABLET BY MOUTH THREE TIMES A DAY 261 tablet 1 02/11 Discontinued( Duplicate order (will not trigger notification to Pharmacy)) triamterene-hydrochlor othiazide (Maxzide-25) 37.5-25 MG tablet TAKE 1 TABLET BY MOUTH EVERY DAY 90 tablet 3 02/12 Discontinued Continuous Glucose Sensor (FreeStyle Davian 2 Sensor) miscIndications:Diabet es mellitus due to underlying condition with hyperglycemia, without long-term current use of insulin ([facility]) Apply 1 sensor every 14 days 2 each 11 02/11 Discontinued( Med list cleanup (will not trigger notification to Pharmacy)) Continuous Glucose [place] (FreeStyle Davian 2 [place]) deviceIndications:Diab etes mellitus due to underlying condition with hyperglycemia, without long-term current use of insulin ([facility]) SCAN SENSOR EVERY 8 HOURS E08.65 1 each 02/11 Discontinued( Med list cleanup (will not trigger notification to Pharmacy)) Januvia 100 MG tabletIndications:Unco ntrolled type 2 diabetes mellitus with hyperglycemia, without long-term current use of insulin ([facility]) TAKE 1 TABLET BY MOUTH EVERY DAY IN THE MORNING 90 tablet 11 02/11 Discontinued( Alternate therapy) oxyCODONE-acetaminophe n (Percocet) 5-325 MG tabletIndications:Sample Card Maker miguel pain syndrome Take 1 tablet by mouth every 8 (eight) hours if needed for severe pain for up to 15 days. 45 tablet 01/21 Discontinued( Reorder (will not trigger notification to Pharmacy)) oxyCODONE-acetaminophe n (Percocet) 5-325 MG tabletIndications:Sample Card Maker miguel pain syndrome Take 1 tablet by mouth every 8 (eight) hours if needed for severe pain for up to 15 days. 45 tablet 02/04 Discontinued( Reorder (will not trigger notification to Pharmacy)) Active Problems Problem Noted Date Diagnosed Date Other sleep apnea 02/17/2025 Long-term current use of opiate analgesic 2024 Left leg weakness 01/24/2023 Assessment & Plan (01/24/2023 4:59 PM EDT): Discussed with patient that getting an MRI may show us what is wrong but it wont help with healing. If he potentially tore a muscle 12 years ago there would be no way to reattach it now, so the MRI would not help us. His best bet is to speak with his orthopedic surgeon. He agreed to address this with his surgeon. Diabetes mellitus due to und erlying condition with hyperglycemia, without long-term current use of insulin 01/24/2023 Assessment & Plan (01/24/2023 5:09 PM EDT): A1C 8.2 Brain told me that he has been taking 2 of his Prandin in the mornings, not 1 before each meal. I explained to him how the medication works. He did not like that he would have to carry the meds around with him and preemptively take them before each meal. We came to an agreement that he would try to take his prandin before his meals to the best of his ability for the next month. We also agreed that he would check his BS at least twice a day 2 hours after meals and right them down in a log. Our first step towards dealing with his musculoskeletal issues is dealing with his A1C so that he has the option of surgery if he so chooses. If his A1C is not improved in 1 month potentially increase prandin to 1 mg before meals TID. F/up: RN phone call 1 month. History of alcohol abuse 12/26/2022 Diabetic peripheral neuropathy 12/26/2022 Class 1 obesity 12/26/2022 Chronic low back pain 12/26/2022 Assessment & Plan (01/24/2023 5:01 PM EDT): Torito is worried about getting injections for his back pain because they may raise his blood sugar. We discussed that his best bet is to talk to his orthopedic surgeon because they are the ones that wont due his right heal surgery due to his A1C being 8.2. For now we are focusing on his A1C and we will discuss musculoskeletal issues once we have tackled that. Bipolar disorder in partial remission 12/26/2022 Dyslipidemia 12/26/2022 Left wrist pain 12/26/2022 Assessment & Plan (01/24/2023 4:58 PM EDT): Left wrist appears to be healing well on its own. No longer a concern for Torito. Stage 1 chronic kidney disease 09/28/2022 Calcific Achilles tendinitis of right lower extr emity 09/28/2022 Calcific tendinitis 07/28/2022 Benign hypertension 05/30/2022 Dyspeptic diarrhea 05/20/2021 Spondylosis without myelopathy 03/09/2021 Assessment & Plan (12/21/2023 10:42 AM EST): Patient already has treatmetn plan setup with PCP, he is on gabapentin and opiates. Recommended cont treatment and discussed nonpharmacological modalities. Gout 08/06/2020 Depressive disorder 02/07/2011 Right ankle pain 07/02/2010 Assessment & Plan (01/24/2023 4:57 PM EDT): We are going to work on Liza A1C first, which will give him the option of having the bone spur removed if he would like to do that. Backache 07/02/2010 Disorder of skeletal muscle 07/02/2010 Resolved Problems Problem Noted Date Diagnosed Date Resolved Date Pain in limb 07/02/2010 12/26/2022 Encounters Date Type Department Care Team Description 02/17/2025 1:00 PM EDT Office Visit [facility] [address] [place] [address] Diabetes mellitus due to underlying condition with hyperglycemia, without long-term current use of insulin ([facility]) (Primary Dx); Benign hypertension; Other sleep apnea; Thumb lesion; Spondylosis without myelopathy 02/17/2025 Travel 02/14/2025 Telephone [facility] [address] [place] [address] Jud Meza MD RESCHEDULE DERM APPT 02/12/2025 Telephone [facility] [address] [place] [address] Jud Meza MD 02/12/2025 Refill [facility] [address] [place] [address] Jud Meza MD 02/11/2025 Travel 02/10/2025 2:30 PM EDT Telemedicine [facility] [address] [place] [address] Danyelle Juares RN Chronic midline low back pain, unspecified whether sciatica present 02/10/2025 Telephone [facility] [address] [place] [address] Jud Meza MD Durable Medical Equipment 02/10/2025 Travel 02/04/2025 Refill [facility] [address] [place] [id number] Jud Meza MD Chronic pain syndrome 01/29/[address] [address] Jud Meza MD Appointment Request 01/21/2025 Refill [facility] [address] [place] [address] Danyelle Juares RN Chronic pain syndrome 01/21/2025 Telephone [facility] [address] [place] [address] Jud Meza MD Med Refill 01/21/2025 Orders Only [facility] [address] [place] [address] Jud Meza MD Diabetes mellitus due to underlying condition with hyperglycemia, without long-term current use of insulin ([facility]) (Primary Dx) 01/21/2025 Telephone [facility] [address] [place] [address] Emilia Reyez PharmD 2025 2:00 PM EDT Telemedicine [facility] [address] [place] [address] Danyelle Juares, LALO Long-term current use of opiate analgesic 2025 Refill [facility] [address] [place] [address] Danyelle Juares RN Chronic pain syndrome 2025 Travel 01/02/2025 3:15 PM EDT Office Visit [facility] [address] [place] [address] Jud Meza MD Diabetes mellitus due to underlying condition with hyperglycemia, without long-term current use of insulin (CMS/HCC) (Primary Dx); Dietary counseling; Exercise counseling; Class 1 obesity due to excess calories with serious comorbidity and body mass index (BMI) of 34.0 to 34.9 in adult; Benign hypertension; Diabetic peripheral neuropathy (CMS/HCC); Hypokalemia; Eczema craquele; Tingling in extremities; Diabetic peripheral neuropathy (CMS/HCC); Uncontrolled type 2 diabetes mellitus with hyperglycemia, without long-term current use of insulin (CMS/HCC); Spinal stenosis of lumbar region, unspecified whether neurogenic claudication present 01/02/2025 Travel 01/01/2025 Telephone [facility] [address] [place] [address] Jud Meza MD Chart Prep 12/27/2024 Population Health Risk Score [facility] () Department [address] [place] [phone] Provider, Population Health Generic 12/24/2024 Refill [facility] [address] [place] [address] Jud Meza MD Chronic pain syndrome 12/10/2024 Refill [facility] [address] [place] [address] Jud Meza MD Chronic pain syndrome 11/26/2024 Refill [facility] [address] [place] [address] Jud Meza MD Chronic pain syndrome 11/22/2024 Telephone [facility] [address] [place] [address] Hanna Guzmán, RN Results 11/21/2024 Orders Only [facility] [address] [place] [address] Jud Meza MD Neuropathy (Primary Dx) from Last 3 Months Immunizations Name Administration Dates Next Due Influenza injectable quadriv alent IIV4 with preservative 09/21/2016 Tdap 01/28/2016 Social History Tobacco Use Types Packs/Day Years Used Date Smoking Tobacco: Never Smokeless Tobacco: Never Tobacco Cessation:Counseling Given: Not Answered Depression Answer Date Recorded Patient Health Questionnaire-9 [...] Orientation Straight 08/15/2022 10 :21 AM EDT Last Filed Vital Signs Vital Sign Reading Time Taken Comments Blood Pressure 134/76 02/17/2025 1:19 PM EDT Pulse 78 02/17/2025 1:19 PM EDT Temperature 36.7 ??C (98 ??F) 02/17/2025 1:19 PM EDT Respiratory Rate 19 02/17/2025 1:19 PM EDT Oxygen Saturation 98% 02/17/2025 1:19 PM EDT Inhaled Oxygen Concentration - - Weight 122 kg (268 lb) 02/17/2025 1:19 PM EDT Height 188 cm (6' 2 ) 02/17/2025 1:19 PM EDT Body Mass Index 34.41 02/17/2025 1:19 PM EDT Plan of Treatment Upcoming Encounters Date Type Department Care Team (Late st Contact Info) Description 03/11/2025 3:00 PM EDT Medication Management [facility] [address] [place] [address] Emilia Reyez, PharmD [address] [place] [address] 04/21/2025 2:30 PM EDT Telemedicine [facility] [address] [place] [address] Danyelle Juares, RN [address] [place] [address] Health Maintenance Due Date Last Done Comments CT Colonography 1961 Colonoscopy 1961 Colorectal Cancer Screening 1961 FIT DNA/Cologuard 1961 FIT 1961 FOBT 1961 HIV Screening 1961 Sigmoidoscopy 1961 Hepatitis C Screening 1979 Pneumococcal Vaccine: 50+ Years (1 of 2 - PCV) 01/07/1980 Zoster Vaccines (1 of 2) 2011 RSV Patients and Patients Aged 60 years or older (1 - Risk 60-74 years 1-dose series) 2021 Diabetes: Urine Protein Screening 07/01/2023 07/01/2022, 07/31/2020 Lipid Panel 07/01/2023 07/01/2022, 07/31/2020 Eye Exam 06/05/2024 12/06/2023, 12/0 05/2023, 01/27/2023 COVID-19 Vaccine ( season) 2024 04/30/2021, 04/06/2021 Influenza Vaccine (#1) 2024 09/21/2016 Diabetes: Hemoglobin A1C 04/04/2025 025, 05/14/2024, 02/02/2024, Additional history exists Alcohol/Substance Use Screening 01/02/2026 01/02/2025 Depression Screening 01/02/2026 01/02/2025, 01/03/20 SDOH Screening 01/02/2026 01/02/2025 DTaP/Tdap/Td Vaccines (2 - Td or Tdap) 01/27/2026 01/28/2016 Diabetes: Foot Exam 02/17/2026 02/17/2025 Tobacco Screening 02/17/2026 02/17/2025 HIB Vaccines Aged Out No longer eligi [...] patient's age to complete this topic Meningococcal Vaccine Aged Out No rodrigo madelaine eligible based on patient's age to complete this topic RSV under 20 months Aged Out No longe r eligible based on patient's age to complete this topic Rotavirus Vaccines Aged Out No longer eligible based on patient's age to complete this topic Procedures Procedure Name Priority Date/Time Associated Diagnosis Comments BASIC METABOLIC PANEL Routine 01/02/2025 3:56 PM EDT Hypokalemia POCT GLUCOSE Routine 01/02/2025 3:43 PM EDT Diabetes mellitus due to underlying condition with hyperglycemia, without long-term current use of insulin (CMS/HCC) Diabetic peripheral neuropathy (CMS/HCC) POCT GLYCATED HEMOGLOBIN, TOTAL Routine 01/02/2025 3:41 PM EDT Diabetes mellitus due to underlying condition with hyperglycemia, without long-term current use of insulin ([facility]) Diabetic peripheral neuropathy ([facility]) DIABETES EYE EXAM Routine 01/27/2023 ALBUMIN, RANDOM URINE W/CREATININE Routine 07/01/2022 2:04 PM EDT LIPID PANEL, STANDARD Routine 07/01/2022 2:04 PM EDT from Last 3 Months or Most Recently Relevant to Health Maintenance Results * (ABNORMAL) Basic Metabolic Panel (01/02/2025 3:56 PM EDT) Sodium 139 135 - 145 mmol/L [facility] Potassium 3.8 3.3 - 5.1 mmol/L [facility] Chloride 105 96 - 108 mmol/L [facility] Carbon Dioxide 24 22 - 29 mmol/L [facility] Anion Gap 14 12 - 20 [facility] Urea Nitrogen (BUN) 16 9 - 16 mg/dL [facility] Creatinine, Serum 0.78 0.5 - 1.4 mg/dL [facility] Estimated Glomerular Filt Rate >60 [facility] Comment:Chronic Kidney Disea se: Estimated GFR < 60 mL/min/[id number] Kidney Disease: Estimated GFR < 15 mL/min/1.73m2 Glucose 200(H) 60 - 115 mg/dL [facility] Calcium 9.1 8.4 - 10.2 mg/dL [facility] Blood Venous blood specimen / Unknown 01/02/2025 3:56 PM EDT 01/02/2025 6:18 PM EDT us Jud Meza MD LAB BLOOD ORDERABLES Final Result [facility] [address] [place] [phone] * (ABNORMAL) POCT Glucose (01/02/2025 3:43 PM EDT) [facility] Glucose Blood, POC 205(A) 60 - 200 mg/dL [facility] [employer] Lot # [id number] Comment:random Lot# Expiration Date [id number] Blood Capillary blood specimen / Unknown 01/02/2025 3:43 PM EDT Jud Meza MD POINT OF CARE TEST ENTER/ED IT ORDERABLES Final Result * (ABNORMAL) POCT HGB A1C (01/02/2025 3:41 PM EDT) [facility] Hemoglobin A1C 9.0(A) 4.0 - 6.0 % QC Media Lot # [id number] Lot# Expiration Date ,026 Blood 01/02/2025 3:41 PM EDT us Jud Meza MD POINT OF CARE TEST ENTER/ED IT ORDERABLES Final Result * (ABNORMAL) Diabetes Eye Exam (01/27/2023) [facility] Eye Exam Abnormal(A ) Normal Comment:Glaucoma FU 6months us Mari Mcgregor OD HEALTH MAINTENANCE Final Resul t * (ABNORMAL) ALBUMIN, RANDOM URINE W/CREATININE (07/01/2022 2:04 PM EDT) [facility] Microalbumin Urine 13.6 See Note: mg/dL [facility] Comment: Reference Range: ?? Reference Range Not established Microalb/Creat Ratio 91(H) <30 mcg/mg creat [facility] Comment: ?? The ADA defines abnormalities in albumin excretion as follows: ?? Albuminuria Category ?Result (mcg/mg creatinine) ?? Normal to Mildly increased ?? <30 Moderately increased ? 30-299 ?? Severely increased ? > OR = 300 ?? The ADA recommends that at least two of three specimens collected within a 3-6 month period be abnormal before considering a patient to be within a diagnostic category. Creatinine, Urine 150 20 - 320 mg/dL [facility] 07/01/2022 2:04 PM EDT us Jud Meza MD LAB URINE ORDERABLES Final Result [facility] [address] * (ABNORMAL) LIPID PANEL, STANDARD (07/01/2022 2:04 PM EDT) Chol/HDLC Ratio 4.2 <5.0 (calc) [facility] Cholesterol, Total 155 <200 mg/dL [facility] HDL Cholesterol 37(L) > OR = 40 mg/dL [facility] LDL Cholesterol 91 mg/dL (calc) [facility] Comment: Reference range: <100 ?? Desirable range <100 mg/dL for primary prevention; ?? <70 mg/dL for patients with CHD or diabetic patients ?? with > or = 2 CHD risk factors. ?? LDL-C is now calculated using the Osbaldo-Napoles ?? calculation, which is a validated novel method providing ?? better accuracy than the Friedewald equation in the ?? estimation of LDL-C. ?? Osbaldo DONAHUE et al. PRASHANT. 2013;310(19): 7765-2082 ?? (http://education.Venda.RentMonitor/faq/IMB522) Non-HDL Cholesterol 118 <130 mg/dL (calc) [facility] Comment: For patients with diabetes plus 1 major ASCVD risk ?? factor, treating to a non-HDL-C goal of <100 mg/dL ?? (LDL-C of <70 mg/dL) is considered a therapeutic ?? option. Triglycerides 168(H) <150 mg/dL [facility] 07/01/2022 2:04 PM EDT us Jud Meza MD LAB BLOOD ORDERABLES Final Result [facility] [address] from Last 3 Months or Most Recently Relevant to Health Maintenance Insurance [place] [phone] [facility] Care Teams Chief Compliance Officer Relationship Specialty Start Date End Date Jud Meza MD [address] [place] [id number] PCP - General Internal Medicine 12/16/11 Emilia Reyez PharmD [address] [place] [address] Pharmacist Internal Medicine 02/11/25
--- OUTSIDE RECORDS SUMMARY | 2025-02-17 15:26 | XMS_ITS | Encounter Summary ---
Author Organization [employer] Address 75 [facility] 7t [place] [address] Care Team Providers Care Wrapper Stemmer Operator Name Role Phone Jud Meza MD Primary Care Provider [phone] Emilia Reyez PharmD Unavailable [phone] Reason for Visit * Reason Onset Date Comments Med Refill 05/28/2024 Encounter Details Date Type Department Care Team (Late st Contact Info) Description 05/28/2024 Telephone [facility] MEDICINE [address] [place] [address] Jud Meza MD 505 [place] [address] Med Refill Social History Tobacco Use Types [...] encounter Miscellaneous Notes * Telephone Encounter - Sri Martinez - 05/28/2024 11:52 AM EDT TC from pt requesting medication refill. Medications needing refill : oxyCODONE-acetaminophen (Percocet) 5-325 MG tablet To be sent to: [facility]/pharmacy #[id number] - [place], [place] - [address] [facility] documented in this encounter Plan of Treatment Upcoming Encounters Date Type Department Care Team (Late st Contact Info) Description 03/11/2025 3:00 PM EDT Medication Management [facility] MED & PEDS [address] [place], [place] [phone] Emilia Reyez PharmD 230 [place] [address] 04/21/2025 2:30 PM EDT Telemedicine [facility] MED & PEDS [address] [place], [place] [phone] Danyelle Juares, LALO 505 [place] [address] documented as of this encounter Visit Diagnoses Not on filedocumented in this encounter Care Teams Wrapper Stemmer Operator Relationship Specialty Start Date End Date Jud Meza MD [address] [place], [place] PCP - General Internal Medicine 12/16/11 Emilia Reyez PharmD 230 [place] [address] Pharmacist Internal Medicine 02/11/25 documented as of this encounter
--- OUTSIDE RECORDS SUMMARY | 2025-02-17 15:26 | XMS_ITS | Encounter Summary ---
Author Organization [employer] Address 75 [facility] 7 [place] [address] Care Team Providers Care Security Door Installer Name Role Phone Jud Meza MD Primary Care Provider [phone]- [phone] Emilia Reyez PharmD Unavailable [phone] Encounter Details Date Type Department Care Team ([facility] st Contact Info) Description 04/05/2024 Orders Only [facility] MED & PEDS [address] [place] [address] Jud Meza MD 505 [place] [address] Diabetes mellitus due to underlying condition with hyperglycemia, without long-term current use of insulin ([facility] (Primary Dx) Social History Tobacco Use Types [...] Description 03/11/2025 3:00 PM EDT Medication Management [facility] MED & PEDS [address] [place] [address] Emilia Reyez PharmD 230 [place] [address] 04/21/2025 2:30 PM EDT Telemedicine [facility] MED & PEDS [address] [place] [address] Danyelle Juares, LALO 505 [place] [address] documented as of this encounter Visit Diagnoses Diagnosis Diabetes mellitus due to underlying condition with hyperglycemia, without long- term current use of insulin ([facility])- Primary documented in this encounter Care Teams Security Door Installer Relationship Specialty Start Date End Date Jud Meza MD 505 [place] [address] PCP - General Internal Medicine 12/16/11 Emilia Reyez PharmD 230 [place], [place] [phone] Pharmacist Internal Medicine 02/11/25 documented as of this encounter
--- OUTSIDE RECORDS SUMMARY | 2025-02-17 15:26 | XMS_ITS | Encounter Summary ---
Author Organization [employer] Address 75 [facility] 7 [place] [address] Care Team Providers Care Flying Instructor Name Role Phone Jud Meza MD Primary Care Provider Emilia Reyez PharmD Unavailable [phone] Encounter Details Date Type Department Care Team (Late st Contact Info) Description 07/10/2023 Orders Only [facility] MED & PEDS 505 [place] [address] Jud Meza MD 505 [place] [address] Chronic midline low back pain, unspecified whether sciatica present (Primary Dx) Social History Tobacco Use Types Packs/Day Years Used Date Smoking Tobacco: Never Smokeless Tobacco: Never Depression Answer Date Recorded Patient Health Questionnaire-2 [...] 3:00 PM EDT Medication Management [facility] MED & PEDS 505 [place], [place] [phone] Emilia Reyez, PharmD 230 [place] [address] 04/21/2025 2:30 PM EDT Telemedicine [facility] CHC MED & PEDS 505 [place], [place] [phone] Danyelle Juares, LALO 505 [place], [place] [phone] documented as of this encounter Visit Diagnoses Diagnosis Chronic midline low back pain, unspecified whether sciatica present- Primary documented in this encounter Care Teams Flying Instructor Relationship Specialty Start Date End Date Jud Meza MD [address] [place], [place] [phone] PCP - General Internal Medicine 12/16/11 Emilia Reyez PharmD [address] [place] [address] Pharmacist Internal Medicine 02/11/25 documented as of this encounter
--- OUTSIDE RECORDS SUMMARY | 2025-02-17 15:27 | XMS_ITS | Encounter Summary ---
Author Organization [employer] Address 75 [facility] 7 [place] [address] Care Team Providers Care Pulvi Mixer Operator Name Role Phone Jud Meza MD Primary Care Provider [phone]- [phone] Emilia Reyez PharmD Unavailable [phone] Reason for Visit * Reason Onset Date Comments RESCHEDULE DERM APPT 02/14/2025 Encounter Details Date Type Department Care Team ([facility] st Contact Info) Description 02/14/2025 Telephone [facility] MED & PEDS [address] [place] [address] Jud Meza MD 505 [place] [address] RESCHEDULE DERM APPT Social History Tobacco Use Types Packs/Day Years [...] encounter Miscellaneous Notes * Telephone Encounter - Sadia Vargas MA - 02/14/2025 10:11 AM EDT Called pt to reschedule derm f/u pruritus appt 04/01/2025 LVM ok for call center to reschedule appt next available documented in this encounter Plan of Treatment Upcoming Encounters Date Type Department Care Team ([facility] st Contact Info) Description 03/11/2025 3:00 PM EDT Medication Management [facility] MED & PEDS [address] [place] [address] Emilia Reyez, PharmD 230 [place] [address] 04/21/2025 2:30 PM EDT Telemedicine [facility] MED & PEDS [address] [place] [address] Danyelle Juares, RN 505 [place] [address] documented as of this encounter Visit Diagnoses Not on filedocumented in this encounter Additional Health Concerns Assessment Noted Time PHQ-9 Depression Total Score: 9 01/03/20 3:46 PM EDT documented as of this encounter Care Teams Pulvi Mixer Operator Relationship Specialty Start Date End Date Jud Meza MD 505 [place] [address] PCP - General Internal Medicine 12/16/11 Emilia Reyez PharmD [address] [place] [address] Pharmacist Internal Medicine 02/11/25 documented as of this encounter
--- OUTSIDE RECORDS SUMMARY | 2025-02-17 15:27 | XMS_ITS | Clinical Summary ---
Author Organization [facility] Address [address] [place] [address] Care Team Providers Care Firearms Inspector Name Role Phone Jud Meza MD Primary Care Provider [phone] Social History Tobacco Use Types Packs/Day Years Used Date Smoking Tobacco: Never Assessed Sex and Gender Information Value Date Recorded Sex Assigned at Not on file Gender Identity Not on file Sexual Orientation Not on file Plan of Treatment Health Maintenance Due Date Last Done Comments Hepatitis C Screening 1961 COVID-19 Vaccine (#1) 1961 Depression Screening 1973 Preventative Health Evaluation 1979 DTap / Tdap / Td (1 - Tdap) 01/07/1980 Colon Cancer Screening (Colonoscopy) 2006 Shingrix-Zoster Vaccine (1 of 2) 2011 Influenza Vaccine (#1) 2024 Pneumococcal Vaccine (1 of 1 - PCV) 2026 RSV Adult > 60+ Yrs or Pregn ant (1 - 1-dose 75+ series) 01/07/2036 Hepatitis B Vaccines Aged Out No long er eligible based on patient's age to complete this topic Pneumococcal Vaccine Aged Out No long er eligible based on patient's age to complete this topic RSV Ped < 20 months Aged Out No longe r eligible based on patient's age to complete this topic Care Teams Firearms Inspector Relationship Specialty Start Date End Date Jud Meza MD [address] [place] [address] PCP - General Internal Medicine 04/15/19
--- OUTSIDE RECORDS SUMMARY | 2025-02-17 15:27 | XMS_ITS | Encounter Summary ---
Author Organization [employer] Address 75 [facility] 7t [place] [address] Care Team Providers Care Director Quality Assurance Name Role Phone Jud Meza MD Primary Care Provider [phone]- [phone] Emilia Reyez PharmD Unavailable [phone] Reason for Visit * Reason Onset Date Comments Med Refill 08/20/2024 Encounter Details Date Type Department Care Team (Late st Contact Info) Description 08/20/2024 Telephone [facility] MEDICINE 230 [place] [address] Jud Meza MD 505 [place] [address] Med Refill Social History Tobacco Use Types [...] * Telephone Encounter - Ed Johnson - 08/20/2024 3:57 PM EST TC from pt requesting medication refill. Medications needing refill: oxyCODONE-acetaminophen (Percocet) 5-325 MG tablet To be sent to: [facility]/pharmacy #[id number] - [place], [place] - [address] [facility] documented in this encounter Plan of Treatment Upcoming Encounters Date Type Department Care Team (Late st Contact Info) Description 03/11/2025 3:00 PM EDT Medication Management [facility] MED & PEDS [address] [place] [address] Emilia Reyez PharmD 230 [place] [address] 04/21/2025 2:30 PM EDT Telemedicine [facility] MED & PEDS [address] [place] [address] Danyelle Juares, LALO 505 [place] [address] documented as of this encounter Visit Diagnoses Not on filedocumented in this encounter Care Teams Director Quality Assurance Relationship Specialty Start Date End Date Jud Meza MD 505 [place] [address] PCP - General Internal Medicine 12/16/11 Emilia Reyez PharmD [address] [place] [address] Pharmacist Internal Medicine 02/11/25 documented as of this encounter
--- OUTSIDE RECORDS SUMMARY | 2025-02-17 15:27 | XMS_ITS | Encounter Summary ---
Author Organization [employer] Address [address] [place] [address] 7 [place] [address] Care Team Providers Care Electric Powerline Examiner Name Role Phone Jud Meza MD Primary Care Provider [phone]- [phone] Emilia Reyez PharmD Unavailable [phone] Reason for Referral * Hospital - Outpatient (Routine) - Pending Review Specialty Diagnoses / Procedures Referred By Reuben regan Referred To Contact Diagnoses Other sleep apnea Procedures Polysomnography Jud Meza MD [address] [place] [address] Phone: tel: fax: Referral ID Status Reason Start Date Expiration Date V isits Requested Visits Authorized [id number] Pending Review 02/17/2025 02/17/2026 1 1 Reason for Visit * Reason Comments Sleep study request Depression Encounter Details Date Type Department Care Team ([facility] st Contact Info) Description 02/17/2025 1:00 PM EDT Office Visit [facility] CHC MED & PEDS [address] [place] [address] Diabetes mellitus due to underlying condition with hyperglycemia, without long-term current use of insulin ([facility]) (Primary Dx); Benign hypertension; Other sleep apnea; Thumb lesion; Spondylosis without myelopathy Social History Tobacco Use [...] AM EDT documented as of this encounter Last Filed Vital Signs Vital Sign Reading [...] Mass Index 34.41 02/17/2025 1:19 PM EDT documented in this encounter Plan of Treatment Upcoming Encounters Date Type Department Care Team (Late st Contact Info) Description 03/11/2025 3:00 PM EDT Medication Management [facility] MED & PEDS [address] [place] [address] Emilia Reyez, AmenaD [address] [place] [address] 04/21/2025 2:30 PM EDT Telemedicine [facility] MED & PEDS 505 [place] [address] Danyelle Juares, RN [address] [place], [place] Scheduled Orders Name Type Priority Associated Diagnoses Orde r Schedule CBC auto differential Lab Routine Diabetes mellitus due to underlying condition with hyperglycemia, without long-term current use of insulin ([facility]) Benign hypertension Expected: 02/17/2025 (Approximate), Expires: 02/17/2026 Lipid Panel, Standard Lab Routine Diabetes mellitus due to underlying condition with hyperglycemia, without long-term current use of insulin ([facility]) Benign hypertension Expected: 02/17/2025 (Approximate), Expires: 02/17/2026 TSH W/Reflex to FT4 Lab Routine Diabetes mellitus due to underlying condition with hyperglycemia, without long-term current use of insulin ([facility]) Benign hypertension Expected: 02/17/2025 (Approximate), Expires: 02/17/2026 Comprehensive Metabolic Panel Lab Routine Diabetes mellitus due to underlying condition with hyperglycemia, without long-term current use of insulin ([facility]) Benign hypertension Expected: 02/17/2025 (Approximate), Expires: 02/17/2026 Albumin, Random Urine W/Creatinine Lab Routine Diabetes mellitus due to underlying condition with hyperglycemia, without long-term current use of insulin ([facility]) Benign hypertension Expected: 02/17/2025 (Approximate), Expires: 02/17/2026 Polysomnography [facility] Routine Other sleep apnea Expected: 02/17/2025 (Approximate), Expires: 02/17/2026 XR finger - thumb right min 2V Imaging Routine Thumb lesion Expected: 02/17/2025, Expires: 02/17/2026 documented as of this encounter Visit Diagnoses Diagnosis Diabetes mellitus due to underlying condition with hyperglycemia, without long- term current use of insulin ([facility])- Primary Benign hypertension Essential hypertension, benign Other sleep apnea Thumb lesion Spondylosis without myelopathy Spondylosis of unspecified site without mention of myelopathy documented in this encounter Additional Health Concerns Assessment Noted Time PHQ-9 Depression Total Score: 9 01/03/20 25 3:46 PM EDT documented as of this encounter Care Teams Electric Powerline Examiner Relationship Specialty Start Date End Date Jud Meza MD [address] [place] [address] PCP - General Internal Medicine 12/16/11 Emilia Reyez PharmD [address] [place] [address] Pharmacist Internal Medicine 02/11/25 documented as of this encounter
--- OUTSIDE RECORDS SUMMARY | 2025-02-17 15:27 | XMS_ITS | Encounter Summary ---
Author Organization [employer] Address 75 [facility] 7t [place] [address] Care Team Providers Care First Cook Name Role Phone Jud Meza MD Primary Care Provider [phone]- [phone] Emilia Reyez PharmD Unavailable [phone] Reason for Visit * Reason Onset Date Comments Nurse Triage 05/09/2024 Encounter Details Date Type Department Care Team (Late st Contact Info) Description 05/09/2024 Telephone [facility] MEDICINE [address] [place] [address] Jud Meza MD [address] [place] [address] Nurse Triage Social History Tobacco Use Types Packs/Day Years [...] the past 12 months, has t he [employer], [employer], [employer] or water [employer] threatened to shut off services in your [...] encounter Miscellaneous Notes * Telephone Encounter - Wing Janelle RN - 05/10/2024 3:39 PM EDT FYI to PCP. Tc to pt, reports difficulty in taking blood sugar more frequently as requested by PCP.Tingling is mainly in the right hand and has been ongoing for a bout a month. Pt also reports denial for Wegovy and Lifestyle sensor by insurance. Stated to pt would message PCP about the insurance denial. Gave pt appt with PCP for same day care for 05/14 at 1:40 pm as PCP request earlier appt for the tingling in hands. Pt verbalized understanding and agreement with plan. * Telephone Encounter - Brittany Escobar RN - 05/09/2024 4:18 PM EDT Pt having numbness on ring and middle finger on both hands. Per pt this is where does diabetic testing. Per pt is checking BS less due to pain and numbness. Pt denies any pain of toes or foot. No facial numbness. Per pt only checking BS once a day. Pt is still taking oral repaglinide 1mg tab beforeevery meal and following low carb and sugar diet. Per pt was never given Rx for wegovy or freestylelibre. Pt wants to have at least davian sensor to help with decreased pain of fingers. Pt denies anysx of hyperglycemia at the moment. Pt has upcomign appt with PCP. Pt advised PCP on vacation but will forward to team nurses to follow up with a covering regarding Rx for Freestyle Davian and will call pt on Monday to see if any cancellations with PCP for booking sooner appt. Reviewed home care advise, ER precautions and reasons to call back. Protocol Used: Finger Pain (Adult) Protocol-Based Disposition: See in Office or Video Visit within 3 Days Positive Triage Question: * Numbness or tingling is a chronic symptom (recurrent or ongoing AND present > 4 weeks) * All higher-acuity triage questions were negative Care Advice Discussed: * Reassurance and Education - Finger Pain * Reasons To Call Back - Fever occurs - Redness or swelling appears - You become worse * Telephone Encounter - Belén Christensen - 05/09/2024 4:12 PM EDT Symptom: Numbness Outcome: Transfer to a nurse or provider NOW! Reason: Numbness on only one side of body or face that started within the past 24 hours The caller accepted this outcome documented in this encounter Plan of Treatment Upcoming Encounters Date Type Department Care Team (Late st Contact Info) Description 03/11/2025 3:00 PM EDT Medication Management [facility] MED & PEDS 505 [place] [address] Emilia Reyez PharmD 230 [place] [address] 04/21/2025 2:30 PM EDT Telemedicine [facility] MED & PEDS 505 [place] [address] Danyelle Juares, RN 505 [place] [address] documented as of this encounter Visit Diagnoses Not on filedocumented in this encounter Care Teams First Cook Relationship Specialty Start Date End Date Jud Meza MD [address] [place] [address] PCP - General Internal Medicine 12/16/11 Emilia Reyez, PharmD 230 [place] [address] Pharmacist Internal Medicine 02/11/25 documented as of this encounter
--- OUTSIDE RECORDS SUMMARY | 2025-02-17 15:27 | XMS_ITS | Encounter Summary ---
Author Organization [employer] Address 75 [facility] 7 [place] [address] Care Team Providers Care Digital Sales Manager Name Role Phone Jud Meza MD Primary Care Provider [phone]- [phone] Emilia Reyez PharmD Unavailable [phone] Encounter Details Date Type Department Care Team ([facility] st Contact Info) Description 02/12/2025 Telephone [facility] CHC MED & PEDS [address] [place] [address] Jud Meza MD 505 [place] [address] Social History Tobacco Use Types Packs/Day Years [...] encounter Miscellaneous Notes * Telephone Encounter - Lina Davis RN - 02/12/2025 9:19 AM EDT TC X1 to pt regarding need for appt to discuss replacement CPAP. Appt scheduled for 02/17/25 at . VM left for pt to return call if need to r/s. documented in this encounter Plan of Treatment Upcoming Encounters Date Type Department Care Team ([facility] st Contact Info) Description 03/11/2025 3:00 PM EDT Medication Management [facility] MED & PEDS [address] [place] [address] Emilia Reyez PharmD 230 [place] [address] 04/21/2025 2:30 PM EDT Telemedicine [facility] MED & PEDS [address] [place] [address] Danyelle Juares, LALO 505 [place] [address] documented as of this encounter Visit Diagnoses Not on filedocumented in this encounter Additional Health Concerns Assessment Noted Time PHQ-9 Depression Total Score: 9 01/03/20 3:46 PM EDT documented as of this encounter Care Teams Digital Sales Manager Relationship Specialty Start Date End Date Beauzile, Thevenin, MD [address] [place] [address] PCP - General Internal Medicine 12/16/11 Emilia Reyez, AmenaD [address] [place] [address] Pharmacist Internal Medicine 02/11/25 documented as of this encounter
--- OUTSIDE RECORDS SUMMARY | 2025-02-17 15:27 | XMS_ITS | Encounter Summary ---
Author Organization [employer] Address 75 [facility] 7t [place] [address] Care Team Providers Care Thread Milling Machine Set Up Operator Name Role Phone Jud Meza MD Primary Care Provider [phone]- [phone] Emilia Reyez PharmD Unavailable [phone] Encounter Details Date Type Department Care Team (Latest Contact Info) Description 02/17/2025 Travel Social History Tobacco Use Types Packs/Day Years [...] Description 03/11/2025 3:00 PM EDT Medication Management [facility] MED & PEDS [address] [place] [address] Emilia Reyez PharmD 230 [place] [address] 04/21/2025 2:30 PM EDT Telemedicine [facility] MED & PEDS [address] [place] [address] Danyelle Juares, LALO 505 [place] [address] documented as of this encounter Visit Diagnoses Not on filedocumented in this encounter Additional Health Concerns Assessment Noted Time PHQ-9 Depression Total Score: 9 01/03/20 3:46 PM EDT documented as of this encounter Care Teams Thread Milling Machine Set Up Operator Relationship Specialty Start Date End Date Jud Meza MD [address] [place] [address] PCP - General Internal Medicine 12/16/11 Emilia Reyez, AmenaD [address] [place] [address] Pharmacist Internal Medicine 02/11/25 documented as of this encounter
--- OUTSIDE RECORDS SUMMARY | 2025-02-17 15:27 | XMS_ITS | Encounter Summary ---
Author Organization [employer] Address 75 [facility] 7t [place] [address] Care Team Providers Care Inside Sales Specialist Name Role Phone Jud Meza MD Primary Care Provider [phone]- [phone] Emilia Reyez PharmD Unavailable [phone] Encounter Details Date Type Department Care Team (Late st Contact Info) Description 04/17/2024 Telephone [facility] MEDICINE [address] [place] [address] Jud Meza MD [address] [place] [address] Social History Tobacco Use Types Packs/Day Years [...] Description 03/11/2025 3:00 PM EDT Medication Management [facility] MED & PEDS [address] [place] [address] Emilia Reyez PharmD 230 [place] [address] 04/21/2025 2:30 PM EDT Telemedicine [facility] MED & PEDS 505 [place] [address] Danyelle Juares, RN 505 [place] [address] documented as of this encounter Visit Diagnoses Not on filedocumented in this encounter Care Teams Inside Sales Specialist Relationship Specialty Start Date End Date Jud Meza MD 505 [place] [address] PCP - General Internal Medicine 12/16/11 Emilia Reyez PharmD 230 [place] [address] Pharmacist Internal Medicine 02/11/25 documented as of this encounter
--- OUTSIDE RECORDS SUMMARY | 2025-02-17 15:27 | XMS_ITS | Patient Health Record ---
Author Organization [employer] Address [address] [address] Care Team Providers Care Presto Log Operator Name Role Phone Ivan Rollins Primary Care Provider Ismael Berg Unavailable [phone] Reason For Referral No Information Plan Of Treatment No Information Insurance Providers Payer Name Payer Address Payer Phone Subscriber Number Group Number Insured Name Patient Relationship to Insured Coverage Start Date Coverage End Date MEDICARE [address] [place] [id number] Torito Rendon Self - patient is the insured [facility] [address] [place] [address] [id number] Torito Rendon Self - patient is the insured
--- OUTSIDE RECORDS SUMMARY | 2025-02-17 15:27 | XMS_ITS | Encounter Summary ---
Author Organization [employer] Address [address] [facility] 7[address] [place] [address] Care Team Providers Care Squaring Shear Operator Name Role Phone Jud Meza MD Primary Care Provider [phone] Emilia Reyez PharmD Unavailable [phone] Encounter Details Date Type Department Care Team ([facility] st Contact Info) Description 10/12/2023 Orders Only [facility] MED & PEDS [address] [place] [address] Jud Meza MD [address] [place] [address] Chronic midline low back pain, unspecified whether [...] Description 03/11/2025 3:00 PM EDT Medication Management [facility] MED & PEDS [address] [place] [address] Emilia Reyez PharmD [address] [place] [address] 04/21/2025 2:30 PM EDT Telemedicine [facility] MED & PEDS [address] [place] [address] Danyelle Juares, RN [address] [place] [address] documented as of this encounter Visit Diagnoses Diagnosis Chronic midline low back pain, unspecified whether sciatica present- Primary documented in this encounter Care Teams Squaring Shear Operator Relationship Specialty Start Date End Date Jud Meza MD [address] [place] [address] PCP - General Internal Medicine 12/16/11 Emilia Reyez PharmD [address] [place], [place] [phone] Pharmacist Internal Medicine 02/11/25 documented as of this encounter
--- OUTSIDE RECORDS SUMMARY | 2025-02-17 15:27 | XMS_ITS | Encounter Summary ---
Author Organization [employer] Address [address] [facility] 7t [place] [address] Care Team Providers Care Meteorological Equipment Repairer Name Role Phone Jud Meza MD Primary Care Provider [phone] Emilia Reyez PharmD Unavailable [phone] Reason for Visit * Reason Onset Date Comments Medication Question 05/09/2024 Encounter Details Date Type Department Care Team ([facility] st Contact Info) Description 05/09/2024 Telephone [facility] MEDICINE [address] [place] [address] Jud Meza MD [address] [place] [address] Medication Question Social History Tobacco Use Types Packs/Day Years [...] Encounter - Wing Janelle RN - 05/10/2024 3:45 PM EDT Addressed in other note regarding nurse triage from 05/09. * Telephone Encounter - Belén Christensen - 05/09/2024 4:13 PM EDT Tc from pt informing Diabetic Injection and sensor were both denied by insurance requesting other alternatives documented in this encounter Plan of Treatment Upcoming Encounters Date Type Department Care Team (Late st Contact Info) Description 03/11/2025 3:00 PM EDT Medication Management [facility] MED & PEDS [address] [place] [address] Emilia Reyez PharmD [address] [place] [address] 04/21/2025 2:30 PM EDT Telemedicine [facility] MED & PEDS [address] [place] [address] Danyelle Juares, LALO [address] [place] [address] documented as of this encounter Visit Diagnoses Not on filedocumented in this encounter Care Teams Meteorological Equipment Repairer Relationship Specialty Start Date End Date Jud Meza MD [address] [place], [place] PCP - General Internal Medicine 12/16/11 Emilia Reyez PharmD [address] [place] [phone] Pharmacist Internal Medicine 02/11/25 documented as of this encounter
[2025-02-17 17:28] LABS: MANUAL DIFF FLAG NO
[2025-02-17 17:39] LABS: Basophils Absolute Auto 0.1 X10*3/uL (0.0-0.2); Basophils Percent Auto 1.1 % (0-2); Eosinophils Absolute Auto 0.1 X10*3/uL (0.0-0.4); Eosinophils Percent Auto 2.7 % (0-4); Hematocrit 43.6 % (42.0-52.0); Hemoglobin 14.3 g/dl (14.0-18.0); Imm Gran Abs Auto 0.02 X10*3/uL (0.00-0.03); Imm Gran Pct Auto 0.4 % (0.0-0.4); Lymphocytes Absolute Auto 1.5 X10*3/uL (1.2-4.9); Lymphocytes Percent Auto 28.1 % (20-40); Mean Corpuscular HGB Conc 32.8 g/dl (31.0-36.0); Mean Corpuscular Hemoglobin 29.1 pg (27.0-33.0); Mean Corpuscular Volume 88.6 fL (80.0-98.0); Monocytes Absolute Auto 0.4 X10*3/uL (0.1-1.2); Monocytes Percent Auto 7.1 % (2-11); Neutrophils Absolute Auto 3.2 x10*3/uL (2.0-8.3); Neutrophils Percent Auto 60.6 % (45-73); Platelet Count 264 X10*3/uL (160-400); Red Blood Count 4.92 X10*6/uL (4.60-5.80); Red Cell Distribution Width 13.4 % (11.0-16.0); White Blood Count 5.2 X10*3/uL (4.8-10.8)
[2025-02-17 18:07] LABS: Alanine Aminotransferase 50 U/L (0-40); Albumin Level 4.2 g/dL (3.5-5.0); Alkaline Phosphatase 84 U/L (39-117); Anion Gap 14 (12-20); Aspartate Amino Transferase 47 U/L (5-37); Bilirubin Total 0.3 mg/dL (0.0-1.0); Blood Urea Nitrogen 16 mg/dL (9-16); Calcium 8.6 mg/dL (8.4-10.2); Carbon Dioxide 24 mmol/L (22-29); Chloride 105 mmol/L (96-108); Cholesterol 183 mg/dL (<200); Estimated Glomerular Filt Rate > 60; Glucose Random 180 mg/dL (60-115); Potassium 3.4 mmol/L (3.3-5.1); Sodium 140 mmol/L (135-145); Total Protein 7.1 g/dL (6.5-8.0); Triglycerides 255 mg/dL (<150)
[2025-02-17 18:20] LABS: TSH reflex Free T4 2.44 uIU/mL (0.32-4.0)
[2025-02-17 18:30] LABS: HDL Cholesterol 39 mg/dL (>40); LDL Cholesterol Calculated 93 mg/dL (<100)
== END 2025-02-17 13:55 | disposition home or self-care (01) ==
LOC: HO.CHCLDS 13:54
PROVIDERS: Visit Provider Internal Medicine
DX: I10 Essential (primary) hypertension (principal); E08.65 Diabetes mellitus due to underlying condition with hyperglycemia
CPT/HCPCS: 36415; 80053; 80061; 84443; 85025

== ENCOUNTER 2025-02-19 16:05 | Outpatient (REF) | payer MEDICARE, MEDICAID, SELFPAY ==
--- OUTSIDE RECORDS SUMMARY | 2025-02-19 16:30 | XMS_ITS | Encounter Summary ---
Author Organization [employer] Address [address] [place] [address] Care Team Providers Care Bucket Hooker Name Role Phone Jud Meza MD Primary Care Provider [phone] Emilia Reyez PharmD Unavailable [phone] Reason for Referral * Imaging (Routine) - Authorized Specialty Diagnoses / Procedures Referred By Contac t Referred To Contact Radiology Diagnoses Transaminitis Procedures US Abdomen Complete Jud Meza MD [address] [place] [phone] Phone: tel: fax: [facility] [address] [place] [address], [address] [address] Phone: tel: fax: Referral ID Status Reason Start Date Expiration Date V isits Requested Visits Authorized [id number] Authorized 02/17/2025 02/17/2026 1 1 Encounter Details Date Type Department Care Team (Late st Contact Info) Description 02/17/2025 Orders Only [facility] CHC MED & PEDS [address] [place] [address] Jud Meza MD [address] [place] [phone] Transaminitis (Primary Dx); Primary osteoarthritis, other specified site Social History Tobacco Use Types Packs/Day Years [...] 03/11/2025 3:00 PM EDT Medication Management [facility] MED & PEDS [address] [place] [address] Emilia Reyez, [place] [address] [place] [address] 04/21/2025 2:30 PM EDT Telemedicine [facility] MED & PEDS [address] [place] [address] Danyelle Juares RN [address] [place] [address] Scheduled Orders Name Type Priority Associated Diagnoses Orde r Schedule Alpha 1 Antitrypsin Lab Routine Transaminitis Expected: 02/17/2025 (Approximate), Expires: 02/17/2026 Smooth Muscle Antibody with Reflex to Titer Lab Routine Transaminitis Expected: 02/17/2025 (Approximate), Expires: 02/17/2026 Prothrombin Time-INR Lab Routine Transaminitis Primary osteoarthritis, other specified site Expected: 02/17/2025, Expires: 02/17/2026 Immunoglobulins Panel, Serum Lab Routine Transaminitis Expected: 02/17/2025 (Approximate), Expires: 02/17/2026 Ferritin Lab Routine Transaminitis Expected: 02/17/2025, Expires: 02/17/2026 Iron And Total Iron Binding Capacity Lab Routine Transaminitis Expected: 02/17/2025, Expires: 02/17/2026 US Abdomen Complete Imaging Routine Transaminitis Expected: 02/17/2025, Expires: 02/17/2026 documented as of this encounter Procedures Procedure Name Priority Date/Time Associated Diagnosis Comments CANCELLED CHEMISTRY Routine 02/17/2025 1 :54 PM EDT Transaminitis documented in this encounter Results * Cancelled Chemistry (02/17/2025 1:54 PM EDT) Cancelled Chemistry SEE NOTE [facility] Comment:THE FOLLOWING TESTS WERE CANCELLED: MicroalbuminREASON: No specimen received 02/17/2025 1:54 PM EDT 02/19/2025 7:42 AM EDT us Jud Meza MD HISTORICAL/NON ORDERABLE KENROY LARRY Final Result [facility] [address] [place] [address] [phone] documented in this encounter Visit Diagnoses Diagnosis Transaminitis- Primary Nonspecific elevation of levels of transaminase or lactic acid dehydrogenase (LDH) Primary osteoarthritis, other specified site documented in this encounter Additional Health Concerns Assessment Noted Time PHQ-9 Depression Total Score: 9 01/03/20 25 3:46 PM EDT documented as of this encounter Care Teams Bucket Hooker Relationship Specialty Start Date End Date Jud Meza MD [address] [place] [address] PCP - General Internal Medicine 12/16/11 Emilia Reyez PharmD [address] [place] [phone] Pharmacist Internal Medicine 02/11/25 documented as of this encounter
--- OUTSIDE RECORDS SUMMARY | 2025-02-19 16:30 | XMS_ITS | Clinical Summary ---
Author Organization [employer] Address [address] [facility] 7t [place] [address] Care Team Providers Care Environmental Lawyer Name Role Phone Jud Meza MD Primary Care Provider [phone] Emilia Reyez PharmD Unavailable [phone] Allergies Active Allergy Reactions Criticality Noted Date [...] 3 2023 Active gabapentin (Neurontin) 800 MG tabletIndications:Physician/Allergy/Immunology miguel right-sided low back pain with bilateral [...] or chew. 60 capsule 11 01/02 Active clonazePAM (KlonoPIN) 0.5 MG tablet Take [...] EVERY DAY 90 tablet 3 2024 Active oxyCODONE-acetaminophe n (Percocet) 5-325 MG tabletIndications:Physician/Allergy/Immunology miguel pain syndrome Take 1 tablet by mouth every 8 (eight) hours if needed for severe pain for up to 15 days. 45 tablet 03/05 Active glucose blood (FreeStyle [employer] Test) test strip Use 1 by To Skin route every day 02/11 Discontinued( Med list cleanup (will not trigger notification to Pharmacy)) triamterene (Dyrenium) 50 MG capsule take 1 capsule by oral route every day after a meal 02/11 Discontinued( Med list cleanup (will not trigger notification to Pharmacy)) gabapentin (Neurontin) 800 MG tabletIndications:Physician/Allergy/Immunology miguel right-sided low back pain with bilateral [...] long-term current use of insulin ([facility]) Apply 1 sensor every 14 days 2 each 11 02/11 Discontinued( Med list cleanup (will not trigger notification to Pharmacy)) Continuous Glucose Adjunct Professor Of [place] History (FreeStyle [place] [address] [place]) deviceIndications:Diab etes mellitus due to underlying condition with hyperglycemia, without long-term current use of insulin ([facility]) SCAN SENSOR EVERY 8 HOURS E08.65 1 each 02/11 Discontinued( Med list cleanup (will not trigger notification to Pharmacy)) Januvia 100 MG tabletIndications:Unco ntrolled type 2 diabetes mellitus with hyperglycemia, without long-term current use of insulin ([facility]) TAKE 1 TABLET BY MOUTH EVERY DAY IN THE MORNING 90 tablet 11 02/11 Discontinued( Alternate therapy) oxyCODONE-acetaminophe n (Percocet) 5-325 MG tabletIndications:Physician/Allergy/Immunology miguel pain syndrome Take 1 tablet by mouth every 8 (eight) hours if needed for severe pain for up to 15 days. 45 tablet 01/21 Discontinued( Reorder (will not trigger notification to Pharmacy)) oxyCODONE-acetaminophe n (Percocet) 5-325 MG tabletIndications:Physician/Allergy/Immunology miguel pain syndrome Take 1 tablet by mouth every 8 (eight) hours if needed for severe pain for up to 15 days. 45 tablet 02/04 Discontinued( Reorder (will not trigger notification to Pharmacy)) oxyCODONE-acetaminophe n (Percocet) 5-325 MG tabletIndications:Physician/Allergy/Immunology miguel pain syndrome Take 1 tablet by mouth every 8 (eight) hours if needed for severe pain for up to 15 days. 45 tablet 02/18 Discontinued( Reorder (will not trigger notification to [...] Encounters Date Type Department Care Team Description 02/18/2025 Refill [facility] [address] [place] [address] Danyelle Juares, resaw tailer pain syndrome 02/18/[address] [address] Jud Meza MD Med Refill 02/18/2025 Telephone [facility] [address] [place] [address] Jud Meza MD Results 02/17/2025 1:00 PM EDT Office Visit [facility] [address] [place] [address] Jud Meza MD Diabetes mellitus due to underlying condition with hyperglycemia, without long-term current use of insulin ([facility]) (Primary Dx); Benign hypertension; Other sleep apnea; Thumb lesion; Spondylosis without myelopathy 02/17/2025 Orders Only [facility] [address] [place] [address] Jud Meza MD Transaminitis (Primary Dx); Primary osteoarthritis, other specified site 02/17/2025 Travel 02/14/2025 Telephone [facility] [address] [place] [address] Jud Meza MD RESCHEDULE DERM APPT 02/12/2025 Telephone [facility] [address] [place] [address] Jud Meza MD 02/12/2025 Refill [facility] [address] [place] [address] Jud Meza MD 02/11/2025 Travel 02/10/2025 2:30 PM EDT Telemedicine [facility] [address] [place] [address] Danyelle Juares, resaw tailer midline low back pain, unspecified whether sciatica present 02/10/2025 Telephone [facility] [address] [place] [address] Jud Meza MD Durable Medical Equipment 02/10/2025 Travel 02/04/2025 Refill [facility] [address] [place] [address] Jud Meza MD Chronic pain syndrome 01/29/2025 Telephone [facility] [address] [place] [phone] Jud Meza MD Appointment Request 01/21/2025 Refill [facility] [address] [place] [address] Danyelle Juares RN Chronic pain syndrome 01/21/2025 Telephone [facility] [address] [place] [address] Jud Meza MD Med Refill 01/21/2025 Orders Only [facility] [address] [place] [address] Jud Meza MD Diabetes mellitus due to underlying condition with hyperglycemia, without long-term current use of insulin (CMS/HCC) (Primary Dx) 01/21/2025 Telephone [facility] [address] [place] [address] Emilia Reyez, PharmGerardo 2025 2:00 PM EDT Telemedicine [facility] [address] [place] [address] Danyelle Juares RN Long-term current use of opiate analgesic 2025 Refill [facility] [address] [place] [address] Danyelle Juares RN Chronic pain syndrome 2025 Travel 01/02/2025 3:15 PM EDT Office Visit [facility] [address] [place] [address] Jud Meza MD Diabetes mellitus due to [...] neurogenic claudication present 01/02/2025 Travel 01/01/2025 Telephone [facility] [address] [place] [address] Jud Meza MD Chart Prep 12/27/2024 Population Health Risk Score [facility] [address] [place] [phone] Provider, Population Health Generic 12/24/2024 Refill [facility] [address] [place] [address] Jud Meza MD Chronic pain syndrome 12/10/2024 Refill [facility] [address] [place] [address] Jud Meza MD Chronic pain syndrome 11/26/2024 Refill [facility] [address] [place] [address] Jud Meza MD Chronic pain syndrome 11/22/2024 Telephone [facility] [address] [place] [address] Hanna Guzmán, RN Results from Last 3 Months Immunizations Name Administration [...] Description 03/11/2025 3:00 PM EDT Medication Management [facility] [address] [place] [address] Emilia Reyez, PharmD [address] [place], [place] [phone] 04/21/2025 2:30 PM EDT Telemedicine [facility] [address] [place] [address] Danyelle Juares, RN [address] [place] [address] Health Maintenance Due Date Last Done Comments [...] Diabetes: Urine Protein Screening 07/01/2023 07/01/2022, 07/31/2020 Eye Exam 06/05/2024 12/06/2023, 12/0 05/2023, 01/27/2023 COVID-19 Vaccine ( season) 2024 04/30/2021, 04/06/2021 Influenza Vaccine (#1) 2024 09/21/2016 Diabetes: Hemoglobin A1C 04/04/2025 025, 05/14/2024, 02/02/2024, Additional history exists Alcohol/Substance Use Screening 01/02/2026 01/02/2025 Depression Screening 01/02/2026 01/02/2025, 01/03/20 25 SDOH Screening 01/02/2026 01/02/2025 DTaP/Tdap/Td Vaccines (2 - Td or Tdap) 01/27/2026 01/28/2016 Diabetes: Foot Exam 02/17/2026 02/17/2025 Lipid Panel 02/17/2026 02/17/2025, 06/16, 07/31/2020 Tobacco Screening 02/17/2026 02/17/2025 HIB Vaccines Aged [...] Procedure Name Priority Date/Time Associated Diagnosis Comments COMPREHENSIVE METABOLIC PANEL Routine 02/17/2025 1:56 PM EDT Diabetes mellitus due to underlying condition with hyperglycemia, without long-term current use of insulin (CMS/HCC) Benign hypertension TSH W/REFLEX TO FT4 Routine 02/17/2025 1 :56 PM EDT Diabetes mellitus due to underlying condition with hyperglycemia, without long-term current use of insulin (CMS/HCC) Benign hypertension LIPID PANEL, STANDARD Routine 02/17/2025 1:56 PM EDT Diabetes mellitus due to underlying condition with hyperglycemia, without long-term current use of insulin (CMS/HCC) Benign hypertension CBC WITH AUTO DIFFERENTIAL Routine 02/17/2025 1:56 PM EDT Diabetes mellitus due to underlying condition with hyperglycemia, without long-term current use of insulin (CMS/HCC) Benign hypertension CANCELLED CHEMISTRY Routine 02/17/2025 1 :54 PM EDT Transaminitis BASIC METABOLIC PANEL Routine 01/02/2025 3:56 PM EDT Hypokalemia POCT GLUCOSE Routine 01/02/2025 3:43 PM EDT Diabetes mellitus due to underlying condition with hyperglycemia, without long-term current use of insulin (CMS/HCC) Diabetic peripheral neuropathy (CMS/HCC) POCT GLYCATED HEMOGLOBIN, TOTAL Routine 01/02/2025 3:41 PM EDT Diabetes mellitus due to underlying condition with hyperglycemia, without long-term current use of insulin (CMS/HCC) Diabetic peripheral neuropathy ([facility]/HCC) DIABETES EYE EXAM Routine 01/27/2023 ALBUMIN, RANDOM URINE W/CREATININE Routine 07/01/2022 2:04 PM EDT from Last 3 Months or Most Recently Relevant to Health Maintenance Results * TSH W/Reflex to FT4 (02/17/2025 1:56 PM EDT) Pathologist [facility] TSH reflex Free T4 2.44 0.32 - 4.0 uIU/mL [facility] Blood Venous blood specimen / Unknown 02/17/2025 1:56 PM EDT 02/17/2025 5:26 PM EDT Jud Meza MD LAB BLOOD ORDERABLES Final Result [facility] [address] [place] [phone] * CBC auto differential (02/17/2025 1:56 PM EDT) Pathologist [facility] White Blood Count 5.2 4.8 - 10.8 X10*3/uL [facility] Red Blood Count 4.92 4.60 - 5.80 X10*6/uL [facility] Hemoglobin 14.3 14.0 - 18.0 g/dl [facility] Hematocrit 43.6 42.0 - 52.0 % [facility] Mean Corpuscular Volume 88.6 80.0 - 98.0 fL [facility] Mean Corpuscular Hemoglobin 29.1 27.0 - 33.0 pg [facility] Mean Corpuscular HGB Conc 32.8 31.0 - 36.0 g/dl [facility] Red Cell Distribution Width 13.4 11.0 - 16.0 % [facility] Platelet Count 264 160 - 400 X10*3/uL [facility] Mean Platelet Volume 10.0 9.4 - 12.4 fL [facility] Neutrophils Percent Auto 60.6 45 - 73 % [facility] Imm Gran Pct Auto 0.4 0.0 - 0.4 % [facility] Lymphocytes Percent Auto 28.1 20 - 40 % [facility] Monocytes Percent Auto 7.1 2 - 11 % [facility] Eosinophils Percent Auto 2.7 0 - 4 % [facility] Basophils Percent Auto 1.1 0 - 2 % [facility] NRBC Pct Auto 0.0 0.0 - 0.2 /100WBC [facility] Neutrophils Absolute Auto 3.2 2.0 - 8.3 x10*3/uL [facility] Imm Gran Abs Auto 0.02 0.00 - 0.03 X10*3/uL [facility] Lymphocytes Absolute Auto 1.5 1.2 - 4.9 X10*3/uL [facility] Monocytes Absolute Auto 0.4 0.1 - 1.2 X10*3/uL [facility] Eosinophils Absolute Auto 0.1 0.0 - 0.4 X10*3/uL [facility] Basophils Absolute Auto 0.1 0.0 - 0.2 X10*3/uL [facility] NRBC Abs Auto 0.000 0.0 - 0.012 X10*3/uL [facility] Blood Venous blood specimen / Unknown 02/17/2025 1:56 PM EDT 02/17/2025 5:26 PM EDT us Jud Meza MD LAB BLOOD ORDERABLES Final Result [facility] [address] [place] [address] [phone] * (ABNORMAL) Lipid Panel, Standard (02/17/2025 1:56 PM EDT) Triglycerides 255(H) <150 mg/dL [facility] Comment:Desirable Triglyceri de: less than 150 mg/dLBorderline High Triglyceride 150-199 mg/dLHigh Triglyceride: 200-499 mg/dLVery High Triglyceride: greater than or equal to 5OO mg/dL Cholesterol 183 <200 mg/dL [facility] Comment:Desirable Cholestero l: less than 200 mg/dLBorderline High Cholesterol: 200-239 mg/dLHigh Cholesterol: greater than 239 mg/dL LDL Cholesterol Calculated 93 <100 mg/dL [facility] Comment:Desirable LDL: less than 100 mg/dLNear Optimal/Above Optimal LDL: 110- 129 mg/dLBorderline High LDL: 130-159 mg/dLHigh LDL: 160-189 mg/dLVery High LDL: greater than or equal to 190 mg/dL HDL Cholesterol 39(L) >40 mg/dL [facility] Comment:Desirable HDL: great er than 40 mg/dL Note: This HDL assay may give artificially low results in patients with liver disease. Blood Venous blood specimen / Unknown 02/17/2025 1:56 PM EDT 02/17/2025 5:26 PM EDT us Jud Meza MD LAB BLOOD ORDERABLES Final Result [facility] [address] [place] [phone] * (ABNORMAL) Comprehensive Metabolic Panel (02/17/2025 1:56 PM EDT) Sodium 140 135 - 145 mmol/L [facility] Potassium 3.4 3.3 - 5.1 mmol/L [facility] Chloride 105 96 - 108 mmol/L [facility] Carbon Dioxide 24 22 - 29 mmol/L [facility] Anion Gap 14 12 - 20 [facility] Urea Nitrogen (BUN) 16 9 - 16 mg/dL [facility] Creatinine, Serum 0.80 0.5 - 1.4 mg/dL [facility] Estimated Glomerular Filt Rate >60 [facility] Comment:Chronic Kidney Disea se: Estimated GFR < 60 mL/min/[id number] Kidney Disease: Estimated GFR < 15 mL/min/1.73m2 Glucose 180(H) 60 - 115 mg/dL [facility] Calcium 8.6 8.4 - 10.2 mg/dL [facility] Bilirubin, Total 0.3 0.0 - 1.0 mg/dL [facility] Aspartate Amino Transferase 47(H) 5 - 37 U/L [facility] Alanine Aminotransferase 50(H) 0 - 40 U/L [facility] Total Protein 7.1 6.5 - 8.0 g/dL [facility] Albumin Level 4.2 3.5 - 5.0 g/dL [facility] Alkaline Phosphatase 84 39 - 117 U/L [facility] Blood Venous blood specimen / Unknown 02/17/2025 1:56 PM EDT 02/17/2025 5:26 PM EDT us Jud Meza MD LAB BLOOD ORDERABLES Final Result Performing Organization Address [facility] Co de Phone Number [facility] [address] [place] [address] [phone] * Cancelled Chemistry (02/17/2025 1:54 PM EDT) Pathologist [facility] Cancelled Chemistry SEE NOTE [facility] Comment:THE FOLLOWING TESTS WERE CANCELLED: MicroalbuminREASON: No specimen received 02/17/2025 1:54 PM EDT 02/19/2025 7:42 AM EDT us Jud Meza MD HISTORICAL/NON ORDERABLE LA BS Final Result Performing Organization Address [facility] Co de Phone Number [facility] [address] [place] [address] [phone] * (ABNORMAL) Basic Metabolic Panel (01/02/2025 3:56 PM EDT) Pathologist [facility] Sodium 139 135 - 145 mmol/L [facility] Potassium 3.8 3.3 - 5.1 mmol/L [facility] Chloride 105 96 - 108 mmol/L [facility] Carbon Dioxide 24 22 - 29 mmol/L [facility] Anion Gap 14 12 - 20 [facility] Urea Nitrogen (BUN) 16 9 - 16 mg/dL [facility] Creatinine, Serum 0.78 0.5 - 1.4 mg/dL [facility] Estimated Glomerular Filt Rate >60 [facility] Comment:Chronic Kidney Disea se: Estimated GFR < 60 mL/min/[id number] Kidney Disease: Estimated GFR < 15 mL/min/1.73m2 Glucose 200(H) 60 - 115 mg/dL [facility] Calcium 9.1 8.4 - 10.2 mg/dL [facility] Blood Venous blood specimen / Unknown 01/02/2025 3:56 PM EDT 01/02/2025 6:18 PM EDT Jud Meza MD LAB BLOOD ORDERABLES Final Result Performing Organization Address City/State/[facility] Co de Phone Number [facility] [address] [place] [phone] * (ABNORMAL) POCT Glucose (01/02/2025 3:43 PM EDT) [facility] Glucose Blood, POC 205(A) 60 - 200 mg/dL QC Media Lot # [id number] Comment:random Lot# Expiration Date Blood Capillary blood specimen / Unknown 01/02/2025 3:43 PM EDT Jud Meza MD POINT OF CARE TEST ENTER/ED IT ORDERABLES Final Result * (ABNORMAL) POCT HGB A1C (01/02/2025 3:41 PM EDT) [facility] Hemoglobin A1C 9.0(A) 4.0 - 6.0 % QC Media Lot # [id number] Lot# Expiration Date ,396 Blood 01/02/2025 3:41 PM EDT us Thevenin Beauzile MD POINT OF CARE TEST ENTER/ED IT ORDERABLES Final Result * (ABNORMAL) Diabetes Eye Exam (01/27/2023) Eye Exam Abnormal(A ) Normal Comment:Glaucoma FU 6months us Mari cMgregor OD HEALTH MAINTENANCE Final Resul t * (ABNORMAL) ALBUMIN, RANDOM URINE W/CREATININE (07/01/2022 2:04 PM EDT) Microalbumin Urine 13.6 See Note: mg/dL [facility] [...] Meza MD LAB URINE ORDERABLES Final Result Performing Organization Address City/State/[facility] Co de Phone Number [facility] [address] from Last 3 Months or Most Recently Relevant to Health Maintenance Insurance [facility] Care Teams Environmental Lawyer Relationship Specialty Start Date End Date Jud Meza MD [address] [place] [phone] PCP - General Internal Medicine 12/16/11 Emilia Reyez PharmD [address] [place] [phone] Pharmacist Internal Medicine 02/11/25
--- OUTSIDE RECORDS SUMMARY | 2025-02-19 16:30 | XMS_ITS | Encounter Summary ---
Author Organization [employer] Address [address] [facility] 7 [place] [address] Care Team Providers Care Veterinary Manager Name Role Phone uJd Meza MD Primary Care Provider [phone] Emilia Reyez PharmD Unavailable [phone] Reason for Visit * Reason Onset Date Comments Appointment Request 01/29/2025 Encounter Details Date Type Department Care Team ([facility] st Contact Info) Description 01/29/2025 Telephone [facility] [address] [place] [address] Jud Meza MD [address] [place] [address] Appointment Request Social History Tobacco Use Types [...] PM EDT Medication Management [facility] [address] [place] [address] Emilia Reyez, PharmD [address] [place] [address] 04/21/2025 2:30 PM EDT Telemedicine [facility] [address] [place] [address] Danyelle Juares, RN [address] [place] [address] documented as of this encounter Visit Diagnoses Not on filedocumented in this encounter Additional Health Concerns Assessment Noted Time PHQ-9 Depression Total Score: 9 01/03/20 25 3:46 PM EDT documented as of this encounter Care Teams Veterinary Manager Relationship Specialty Start Date End Date Jud Meza MD [address] [place] [address] PCP - General Internal Medicine 12/16/11 Emilia Reyez, [place] [address] [place] [phone] Pharmacist Internal Medicine 02/11/25 documented as of this encounter
--- OUTSIDE RECORDS SUMMARY | 2025-02-19 16:30 | XMS_ITS | Encounter Summary ---
Author Organization [employer] Address [address] [facility] 7 [place] [address] Care Team Providers Care Ward Supervisor Name Role Phone Jud Meza MD Primary Care Provider Emilia Reyez PharmD Unavailable [phone] Reason for Visit * Reason Onset Date Comments Appointment Request 01/05/2023 Encounter Details Date Type Department Care Team ([facility] st Contact Info) Description 01/05/2023 Telephone [facility] [address] [place] [address] Jud Meza MD [address] [place] [address] Appointment Request Social History Tobacco Use Types [...] * Telephone Encounter - Torito Noyola - 01/05/2023 2:28 PM EDT Tc from pt requesting to r/s appt on 01/10/23 ( [employer] [place] ) Please contact pt at [phone] documented in this encounter Plan of Treatment Upcoming Encounters Date Type Department Care Team ([facility] st Contact Info) Description 03/11/2025 3:00 PM EDT Medication Management [facility] [address] [place] [address] Emilia Reyez PharmD [address] [place] [address] 04/21/2025 2:30 PM EDT Telemedicine [facility] [address] [place] [address] Danyelle Juares RN [address] [place] [address] documented as of this encounter Visit Diagnoses Not on filedocumented in this encounter Care Teams Ward Supervisor Relationship Specialty Start Date End Date Jud Meza MD [address] [place] [address] PCP - General Internal Medicine 12/16/11 Emilia Reyez PharmD [address] [place] [address] Pharmacist Internal Medicine 02/11/25 documented as of this encounter
--- OUTSIDE RECORDS SUMMARY | 2025-02-19 16:30 | XMS_ITS | Encounter Summary ---
Author Organization [employer] Address [address] [facility] 7t [place] [address] Care Team Providers Care Peanut Blancher Name Role Phone Jud Meza MD Primary Care Provider [phone] Emilia Reyez PharmD Unavailable [phone] Reason for Visit * Reason Onset Date Comments Med Refill 01/21/2025 Encounter Details Date Type Department Care Team (Late st Contact Info) Description 01/21/2025 Telephone [facility] [address] [place] [address] Jud Meza MD [address] [place], [place] [phone] Med Refill Social History Tobacco Use Types [...] 5-325 MG tablet To be sent to: [facility]/pharmacy #[id number] [facility] [facility] [employer] documented in this encounter Plan of Treatment Upcoming Encounters Date Type Department Care Team (Late st Contact Info) Description 03/11/2025 3:00 PM EDT Medication Management [facility] [address] [place] [address] Emilia Reyez, PharmD [address] [place] [address] 04/21/2025 2:30 PM EDT Telemedicine [facility] [address] [place] [address] Danyelle Juares, RN [address] [place] [address] documented as of this encounter Visit Diagnoses Not on filedocumented in this encounter Additional Health Concerns Assessment Noted Time PHQ-9 Depression Total Score: 9 01/03/20 25 3:46 PM EDT documented as of this encounter Care Teams Peanut Blancher Relationship Specialty Start Date End Date Jud Meza MD [address] [place] [phone] PCP - General Internal Medicine 12/16/11 Emilia Reyez PharmD [address] [place] [phone] Pharmacist Internal Medicine 02/11/25 documented as of this encounter
--- OUTSIDE RECORDS SUMMARY | 2025-02-19 16:30 | XMS_ITS | Encounter Summary ---
Author Organization [employer] Address 75 [facility] 7t [place] [address] Care Team Providers Care Casting Supervisor Name Role Phone Jud Meza MD Primary Care Provider +1- [phone] Emilia Reyez PharmD Unavailable [phone] Encounter Details Date Type Department Care Team ([facility] st Contact Info) Description 11/05/2024 Orders Only [facility] CHC MED & PEDS [address] [place] [address] Provider, MD Ruben Social History Tobacco Use [...] 3:00 PM EDT Medication Management [facility] MED & PEDS 505 [place] [address] Emilia Reyez PharmD 230 [place] [address] 04/21/2025 2:30 PM EDT Telemedicine [facility] MED & PEDS [address] [place], [place] [phone] Danyelle Juares, RN 505 [place], [place] [phone] documented as of this encounter Procedures Procedure [...] on filedocumented in this encounter Care Teams Casting Supervisor Relationship Specialty Start Date End Date Jud Meza MD 505 [place] [address] PCP - General Internal Medicine 12/16/11 Emilia Ryeez, AmenaD 230 [place] [address] Pharmacist Internal Medicine 02/11/25 documented as of this encounter
--- OUTSIDE RECORDS SUMMARY | 2025-02-19 16:30 | XMS_ITS | Encounter Summary ---
Author Organization [employer] Address 75 [facility] 7t [place] [address] Care Team Providers Care Supplier Specialist Name Role Phone Jud Meza MD Primary Care Provider +1- [phone] Emilia Reyez PharmD Unavailable [phone] Encounter Details Date Type Department Care Team ([facility] st Contact Info) Description 11/21/2024 Orders Only [facility] CHC MED & PEDS 505 [place], [place] [phone] Jud Meza MD 505 [place] [address] Neuropathy (Primary Dx) Social History Tobacco Use [...] the past 12 months, has t he [employer], an [employer], [employer], oil or water [employer] threatened to shut off services in your [...] Description 03/11/2025 3:00 PM EDT Medication Management [facility] MED & PEDS [address] [place] [address] Emilia Reyez PharmD 230 [place] [address] 04/21/2025 2:30 PM EDT Telemedicine [facility] MED & PEDS 505 [place] [address] Danyelle Juares, LALO 505 [place] [address] documented as of this encounter Visit Diagnoses Diagnosis Neuropathy- Primary Mononeuritis of unspecified site documented in this encounter Care Teams Supplier Specialist Relationship Specialty Start Date End Date Jud Meza MD 505 [place] [address] PCP - General Internal Medicine 12/16/11 Emilia Reyez PharmD 230 [place] [address] Pharmacist Internal Medicine 02/11/25 documented as of this encounter
--- OUTSIDE RECORDS SUMMARY | 2025-02-19 16:30 | XMS_ITS | Encounter Summary ---
Author Organization [employer] Address 75 [facility] 7 [place] [address] Care Team Providers Care Gender Studies Professor Name Role Phone Jud Meza MD Primary Care Provider +1- [phone] Emilia Reyez PharmD Unavailable [phone] Reason for Referral * Neurology (Routine) - Closed Specialty Diagnoses / Procedures Referred By Reuben regan Referred To Contact Diagnoses Left foot drop Procedures Nerve conduction test Jud Meza MD 505 [place] [address] Phone: tel: fax: [address] Phone: tel: fax: Referral ID Status Reason Start Date Expiration Date Visits Re quested Visits Authorized [id number] Closed 10/18/2024 10/18/2025 1 1 Encounter Details Date Type Department Care Team (Late st Contact Info) Description 10/18/2024 Orders Only [facility] CHC MED & PEDS 505 [place] [address] Jud Meza MD 505 [place] [address] Left foot drop (Primary Dx) Social History Tobacco Use Types Packs/Day Years Used Date Smoking Tobacco: Never Smokeless Tobacco: Never Housing Stability Answer Date Recorded What is your housing situation today? I have melissa sing 07/31/[address] you li [...] Upcoming Encounters Date Type Department Care Team ([facility] st Contact Info) Description 03/11/2025 3:00 PM EDT Medication Management [facility] MED & PEDS 505 [place] [address] Emilia Reyez, AmenaD 230 [place] [address] 04/21/2025 2:30 PM EDT Telemedicine [facility] MED & PEDS 505 [place] [address] Danyelle Juares, LALO 505 [place] [address] Scheduled Orders Name Type Priority Associated Diagnoses Orde r Schedule Nerve conduction test Neurology Routine Left foot drop Expected: 10/18/2024 (Approximate), Expires: 10/18/2025 documented as of this encounter Visit Diagnoses Diagnosis Left foot drop- Primary Other acquired deformity of ankle and foot documented in this encounter Care Teams Gender Studies Professor Relationship Specialty Start Date End Date Jud Meza MD 505 [place] [address] PCP - General Internal Medicine 12/16/11 Emilia Reyez PharmD 230 [place] [address] Pharmacist Internal Medicine 02/11/25 documented as of this encounter
--- OUTSIDE RECORDS SUMMARY | 2025-02-19 16:30 | XMS_ITS | Encounter Summary ---
Author Organization [employer] Address [address] [place] [address] [facility] [place] [address] Care Team Providers Care Program Aide Group Work Name Role Phone Jud Meza MD Primary Care Provider Emilia Reyez PharmD Unavailable [phone] Reason for Referral * Consultation (Routine) - Pending Review Specialty Diagnoses / Procedures Referred By Reuben t Referred To Contact Pharmacy Diagnoses Diabetes mellitus due to underlying condition with hyperglycemia, without long-term current use of insulin (CMS/HCC) Jud Meza MD 505 [place] [address] Phone: tel: fax: Referral ID Status Reason Start Date Expiration Date Visits Requested Visits Authorized [id number] Pending Review Consult and Treat 01/21/2025 01/21/2026 6 6 Encounter Details Date Type Department Care Team (Late st Contact Info) Description 01/21/[address] [facility] CHC MED & PEDS 505 [place] [address] Jud Meza MD [address] [place] [address] Diabetes mellitus due to underlying condition with [...] [facility] 505 [place] [address] Emilia Reyez, [place] 230 [place] [address] 04/21/2025 2:30 PM EDT Telemedicine [facility] MED & PEDS 505 [place] [address] Danyelle Juares, RN 505 [place] [address] Scheduled Referrals Name Type Priority Associated Diagnoses Orde r Schedule Referral to Pharmacy CDTM Outpatient Referral Routine Diabetes mellitus due to underlying condition with hyperglycemia, without long-term current use of insulin ([facility]) Ordered: 01/21/2025 documented as of this encounter Visit Diagnoses Diagnosis Diabetes mellitus due to underlying condition with hyperglycemia, without long- term current use of insulin ([facility])- Primary documented in this encounter Additional Health Concerns Assessment Noted Time PHQ-9 Depression Total Score: 9 01/03/20 25 3:46 PM EDT documented as of this encounter Care Teams Program Aide Group Work Relationship Specialty Start Date End Date Jud Meza MD 505 [place] [address] PCP - General Internal Medicine 12/16/11 Emilia Reyez PharmD [address] [place] [address] Pharmacist Internal Medicine 02/11/25 documented as of this encounter
--- OUTSIDE RECORDS SUMMARY | 2025-02-19 16:30 | XMS_ITS ---
Author Organization [facility] [employer] [facility] Address [address] [facility] [address] [place] [address] Care Team Providers Care Trap Puller Name Role Phone Ivan Rollins Primary Care Provider Ismael Berg Unavailable [phone] REASON FOR VISIT 30 min EMG LLE - left foot drop Encounters Encounter Location Date Provider Diagnosis [facility] [email or web address] [facility] [address] [facility] [address] [place] [address] 09/03/2024 Ismael Thompson Plan Of Treatment No Information Progress Notes * Torito CHAMBERLAINDOB:1960 (65 yo M)Acc No.[id number]:09/03/2024 Patient:?Torito CHAMBERLAIN Provider:?Ismael Thompson MD :1960???Age:64 Y???Sex:Male Manolo e:09/03/2024 Address:[address] [place] [address] [place], [facility] Pcp:Ivan Rollins Subjective: * Chief Complaints: * ???1. 30 min EMG LLE - left foot drop. * Medical History:? Objective: * Vitals:? Assessment: Plan: * Treatment: * * Electronic signature of James Thompson MD on 02/19/2025 at 04:30 PM EDT Sign off status: Pending * Provider:?Ismael Thompson MD Date:?09/03 Generated for Tuan whitney/[place]/eTsatnamsmitting on:?02/19/2025 04:30 PM EDT
--- OUTSIDE RECORDS SUMMARY | 2025-02-19 16:30 | XMS_ITS | Encounter Summary ---
Author Organization [employer] Address 75 [facility] 7 [place] [address] Care Team Providers Care Councilperson Name Role Phone Jud Meza MD Primary Care Provider [phone]- [phone] Emilia Reyez PharmD Unavailable [phone] Reason for Visit * Reason Onset Date Comments Med Refill 03/03/2023 Encounter Details Date Type Department Care Team ([facility] st Contact Info) Description 03/03/2023 Telephone [facility] CHC MED & PEDS [address] [place], [place] [phone] Jud Meza MD 505 [place] [address] Med Refill Social History Tobacco Use Types [...] Miscellaneous Notes * Telephone Encounter - Danyelle rGaham RN - 03/03/2023 12:55 PM EDT Rx [...] Description 03/11/2025 3:00 PM EDT Medication Management [facility] MED & PEDS [address] [place] [address] Emilia Reyez PharmD 230 [place] [address] 04/21/2025 2:30 PM EDT Telemedicine [facility] MED & PEDS [address] [place] [address] Danyelle Juares, LALO 505 [place], [place] [phone] documented as of this encounter Visit Diagnoses Not on filedocumented in this encounter Care Teams Councilperson Relationship Specialty Start Date End Date Jud Meza MD 505 [place] [address] PCP - General Internal Medicine 12/16/11 Emilia Reyez PharmD [address] [place], [place] [phone] Pharmacist Internal Medicine 02/11/25 documented as of this encounter
--- OUTSIDE RECORDS SUMMARY | 2025-02-19 16:31 | XMS_ITS | Encounter Summary ---
Author Organization [employer] Address 75 [facility] 7t [place] [address] Care Team Providers Care Scientist Engineer Name Role Phone Jud Meza MD Primary Care Provider [phone]- [phone] Emilia Reyez PharmD Unavailable [phone] Reason for Visit * Reason Onset Date Comments Medication Question 05/09/2024 Encounter Details Date Type Department Care Team ([facility] st Contact Info) Description 05/09/[address] [facility] MEDICINE [address] [place] [address] Jud Meza MD [address] [place], [place] [phone] Medication Question Social History Tobacco Use Types [...] Description 03/11/2025 3:00 PM EDT Medication Management [facility] MED & PEDS 505 [place] [address] Emilia Reyez, PharmD 230 [place] [address] 04/21/2025 2:30 PM EDT Telemedicine [facility] MED & PEDS [address] [place] [address] Danyelle Juares, LALO 505 [place] [address] documented as of this encounter Visit Diagnoses Not on filedocumented in this encounter Care Teams Scientist Engineer Relationship Specialty Start Date End Date Jud Meza MD [address] [place], [place] PCP - General Internal Medicine 12/16/11 Emilia Reyez, [place] [address] [place] [address] Pharmacist Internal Medicine 02/11/25 documented as of this encounter
--- OUTSIDE RECORDS SUMMARY | 2025-02-19 16:31 | XMS_ITS | Encounter Summary ---
Author Organization [employer] Address 75 [facility] 7t [place] [address] Care Team Providers Care Head Boys Golf Coach Name Role Phone Jud Meza MD Primary Care Provider +1- [phone] Emilia Reyez PharmD Unavailable [phone] Reason for Visit * Reason Onset Date Comments Med Refill 05/28/2024 Encounter Details Date Type Department Care Team (Late st Contact Info) Description 05/28/2024 Telephone [facility] MEDICINE 230 [place] [address] Jud Meza MD 505 [place], [place] [phone] Med Refill Social History Tobacco Use Types Packs/Day Years Used Date Smoking Tobacco: Never Smokeless Tobacco: Never Housing Stability Answer Date Recorded What is your housing situation today? I have melissa christal 07/31/[address] you li [...] 5-325 MG tablet To be sent to: [facility]/pharmacy #[id number] - [place], [place] - [address] [facility] documented in this encounter Plan of Treatment Upcoming Encounters Date Type Department Care Team (Late st Contact Info) Description 03/11/2025 3:00 PM EDT Medication Management [facility] MED & PEDS 505 [place] [address] Emilia Reyez PharmD 230 [place] [address] 04/21/2025 2:30 PM EDT Telemedicine [facility] MED & PEDS 505 [place] [address] Danyelle Juares, LALO 505 [place] [address] documented as of this encounter Visit Diagnoses Not on filedocumented in this encounter Care Teams Head Boys Golf Coach Relationship Specialty Start Date End Date Jud Meza MD 505 [place] [address] PCP - General Internal Medicine 12/16/11 Emilia Reyez PharmD 230 [place] [address] Pharmacist Internal Medicine 02/11/25 documented as of this encounter
--- OUTSIDE RECORDS SUMMARY | 2025-02-19 16:31 | XMS_ITS | Encounter Summary ---
Author Organization [facility] Address [address] [place] [address] Care Team Providers Care Floor Scraper Name Role Phone Jud Meza MD Primary Care Provider [phone] Reason for Visit * Reason Comments Return Call Encounter Details Date Type Department Care Team ([facility] st Contact Info) Description 07/12/2024 Telephone [facility] Orthopedic Surgery [address] [place] [phone] Anthony Castillo MD [address] [place] [address] Return Call Social History Tobacco Use Types [...] over MRI results. Call back number is [phone]. documented in this encounter Plan of Treatment Not on file documented as of this encounter Visit Diagnoses Not on filedocumented in this encounter Care Teams Floor Scraper Relationship Specialty Start Date End Date Jud Meza MD [address] [address] PCP - General Internal Medicine 03/21/24 documented as of this encounter
--- OUTSIDE RECORDS SUMMARY | 2025-02-19 16:31 | XMS_ITS | Encounter Summary ---
Author Organization [employer] Address 75 [facility] 7t [place] [address] Care Team Providers Care Resistance Brazer Name Role Phone Jud Meza MD Primary Care Provider [phone]- [phone] Emilia Reyez PharmD Unavailable [phone] Reason for Visit * Reason Onset Date Comments Med Refill 02/18/2025 Encounter Details Date Type Department Care Team (Late st Contact Info) Description 02/18/2025 Telephone [facility] MEDICINE 230 [place] [address] Jud Meza MD 505 [place], [place] [phone] Med Refill Social History Tobacco Use Types [...] encounter Miscellaneous Notes * Telephone Encounter - Balwinder Bennett - 02/18/2025 1:47 PM EDT TC from pt requesting medication refill. Medications needing refill :oxyCODONE-acetaminophen (Percocet) 5-325 MG tablet To be sent to: [facility]/pharmacy #[id number] [place] [address] [address] [facility] documented in this encounter Plan of Treatment Upcoming Encounters Date Type Department Care Team (Late st Contact Info) Description 03/11/2025 3:00 PM EDT Medication Management [facility] MED & PEDS 505 [place] [address] Emilia Reyez, PharmD 230 [place] [address] 04/21/2025 2:30 PM EDT Telemedicine [facility] MED & PEDS 505 [place], [place] [phone] Danyelle Juares, RN 505 [place], [place] documented as of this encounter Visit Diagnoses Not on filedocumented in this encounter Additional Health Concerns Assessment Noted Time PHQ-9 Depression Total Score: 9 01/03/20 25 3:46 PM EDT documented as of this encounter Care Teams Resistance Brazer Relationship Specialty Start Date End Date Jud Meza MD [address] [place] [address] PCP - General Internal Medicine 12/16/11 Emilia Reyez PharmD [address] [place] [address] Pharmacist Internal Medicine 02/11/25 documented as of this encounter
--- OUTSIDE RECORDS SUMMARY | 2025-02-19 16:31 | XMS_ITS | Encounter Summary ---
Author Organization [employer] Address 75 [facility] 7 [place] [address] Care Team Providers Care Mail Carrier Name Role Phone Jud Meza MD Primary Care Provider +1- [phone] Emilia Reyez PharmD Unavailable [phone] Reason for Visit * Reason Comments Med Change Request Encounter Details Date Type Department Care Team ([facility] Contact Info) Description 05/14/2024 Refill [facility] CHC MED & PEDS 505 [place], [place] [phone] Jud Meza MD 505 [place] [address] Diabetes mellitus due to underlying condition with hyperglycemia, without long-term current use of insulin ([facility]) Social History Tobacco Use Types Packs/Day Years [...] Description 03/11/2025 3:00 PM EDT Medication Management [facility] MED & PEDS [address] [place] [address] Emilia Reyez PharmD 230 [place] [address] 04/21/2025 2:30 PM EDT Telemedicine [facility] MED & PEDS 505 [place] [address] Danyelle Juares, LALO 505 [place] [address] documented as of this encounter Visit Diagnoses Diagnosis Diabetes mellitus due to underlying condition with hyperglycemia, without long- term current use of insulin ([facility]) documented in this encounter Care Teams Mail Carrier Relationship Specialty Start Date End Date Jud Meza MD [address] [place] [address] PCP - General Internal Medicine 12/16/11 Emilia Reyez PharmD 230 [place] [address] Pharmacist Internal Medicine 02/11/25 documented as of this encounter
--- OUTSIDE RECORDS SUMMARY | 2025-02-19 16:31 | XMS_ITS | Encounter Summary ---
Author Organization [employer] Address 75 [facility] 7t [place] [address] Care Team Providers Care Wire Dropper Name Role Phone Jud Meza MD Primary Care Provider [phone]- [phone] Emilia Reyez PharmD Unavailable [phone] Reason for Visit * Reason Onset Date Comments Durable Medical Equipment 07/05/2024 Encounter Details Date Type Department Care Team (Late st Contact Info) Description 07/05/2024 Telephone [facility] MEDICINE 230 [place] [address] Jud Meza MD [address] [place], [place] [phone] Durable Medical Equipment Social History Tobacco Use [...] Medication Management [facility] MED & PEDS 505 [place] [address] Emilia Reyez PharmD 230 [place] [address] 04/21/2025 2:30 PM EDT Telemedicine [facility] MED & PEDS [address] [place] [address] Danyelle Juares, LALO 505 [place] [address] documented as of this encounter Visit Diagnoses Not on filedocumented in this encounter Care Teams Wire Dropper Relationship Specialty Start Date End Date Jud Meza MD [address] [place] [address] PCP - General Internal Medicine 12/16/11 Emilia Reyez, [place] [address] [place] [address] Pharmacist Internal Medicine 02/11/25 documented as of this encounter
--- OUTSIDE RECORDS SUMMARY | 2025-02-19 16:31 | XMS_ITS | Clinical Summary ---
Author Organization [facility] Address [address] [place] [address] Care Team Providers Care Drafter Civil Name Role Phone Jud Meza MD Primary Care Provider [phone] Social History Tobacco Use Types Packs/Day Years [...] age to complete this topic Care Teams Drafter Civil Relationship Specialty Start Date End Date Jud Meza MD [address] [place] [address] PCP - General Internal Medicine 04/15/19
--- OUTSIDE RECORDS SUMMARY | 2025-02-19 16:31 | XMS_ITS | Encounter Summary ---
Author Organization [employer] Address [address] [place] [address] 7 [place] [address] Care Team Providers Care Supervisor Mold Shop Name Role Phone Jud Meza MD Primary Care Provider [phone] Emilia Reyez PharmD Unavailable [phone] Encounter Details Date Type Department Care Team (Late Contact Info) Description 07/10/2023 Orders Only [facility] MED & PEDS 505 [place] [address] Jud Meza MD 505 [place] [address] Chronic midline low back pain, unspecified whether [...] 3:00 PM EDT Medication Management [facility] MED & PEDS 505 [place] [address] Emilia Reyez, PharmD 230 [place] [address] 04/21/2025 2:30 PM EDT Telemedicine [facility] CHC MED & PEDS 505 [place], [place] [phone] Danyelle Juares, LALO 505 [place], [place] [phone] documented as of this encounter Visit Diagnoses Diagnosis Chronic midline low back pain, unspecified whether sciatica present- Primary documented in this encounter Care Teams Supervisor Mold Shop Relationship Specialty Start Date End Date Jud Meza MD 505 [place], [place] [phone] PCP - General Internal Medicine 12/16/11 Emilia Reyez PharmD [address] [place] [address] Pharmacist Internal Medicine 02/11/25 documented as of this encounter
--- OUTSIDE RECORDS SUMMARY | 2025-02-19 16:31 | XMS_ITS | Encounter Summary ---
Author Organization [employer] Address 75 [facility] 7t [place] [address] Care Team Providers Care Admissions Clerk Name Role Phone Jud Meza MD Primary Care Provider [phone]- [phone] Emilia Reyez PharmD Unavailable [phone] Reason for Visit * Reason Onset Date Comments Med Refill 08/20/2024 Encounter Details Date Type Department Care Team ([facility] st Contact Info) Description 08/20/[address] [facility] MEDICINE 230 [place] [address] Jud Meza MD 505 [place], [place] [phone] Med Refill Social History Tobacco Use Types [...] 5-325 MG tablet To be sent to: [facility]/pharm[facility] #[id number] - [place] [place] [facility] documented in this encounter Plan of Treatment Upcoming Encounters Date Type Department Care Team (Late st Contact Info) Description 03/11/2025 3:00 PM EDT Medication Management [facility] MED & PEDS 505 [place] [address] Emilia Reyez PharmD 230 [place] [address] 04/21/2025 2:30 PM EDT Telemedicine [facility] MED & PEDS 505 [place] [address] Danyelle Juares, LALO 505 [place] [address] documented as of this encounter Visit Diagnoses Not on filedocumented in this encounter Care Teams Admissions Clerk Relationship Specialty Start Date End Date Jud Meza MD 505 [place] [address] PCP - General Internal Medicine 12/16/11 Emilia Reyez PharmD [address] [place] [address] Pharmacist Internal Medicine 02/11/25 documented as of this encounter
--- OUTSIDE RECORDS SUMMARY | 2025-02-19 16:31 | XMS_ITS | Encounter Summary ---
Author Organization [employer] Address [address] [facility] 7t [place] [address] Care Team Providers Care Architectural Intern Name Role Phone Jud Meza MD Primary Care Provider [phone]- [phone] Emilia Reyez PharmD Unavailable Encounter Details Date Type Department Care Team [...] 03/11/2025 3:00 PM EDT Medication Management [facility] [address] [place] [address] Emilia Reyez PharmD [address] [place] [address] 04/21/2025 2:30 PM EDT Telemedicine [facility] [address] [place] [address] Danyelle Juares RN 505 [place] [address] documented as of this encounter Visit Diagnoses Not on filedocumented in this encounter Additional Health Concerns Assessment Noted Time PHQ-9 Depression Total Score: 9 01/03/20 3:46 PM EDT documented as of this encounter Care Teams Architectural Intern Relationship Specialty Start Date End Date Jud Meza MD [address] [place] [address] PCP - General Internal Medicine 12/16/11 Emilia Reyez PharmD [address] [place] [address] Pharmacist Internal Medicine 02/11/25 documented as of this encounter
--- OUTSIDE RECORDS SUMMARY | 2025-02-19 16:31 | XMS_ITS | Patient Health Record ---
Author Organization [employer] Address [address] [address] Care Team Providers Care Mini Shifter Name Role Phone Ivan Rollins Primary Care Provider Ismael Berg Unavailable [phone] Reason For Referral No Information Plan Of Treatment No Information Insurance Providers Payer Name Payer Address Payer Phone Subscriber Number Group Number Insured Name Patient Relationship to Insured Coverage Start Date Coverage End Date MEDICARE [address] [place] [id number] Torito Rendon Self - patient is the insured [facility] [address] [place] [address] [id number] Torito Rendon Self - patient is the insured
--- OUTSIDE RECORDS SUMMARY | 2025-02-19 16:31 | XMS_ITS | Clinical Summary ---
Author Organization [employer] [facility] Address [address] [place] [address] Care Team Providers Care Service Attendant Name Role Phone Jud Meza MD Primary Care Provider [phone] Medications Allopurinol (ZYLOPRIM) 300 MG tablet Take [...] this topic Zoster (Zostavax) Discontinued Insurance [address] [place] [address] MEDICARE PART B MEDICAID Care Teams Service Attendant Relationship Specialty Start Date End Date Jud Meza MD [address] [address] PCP - General Internal Medicine 03/21/24
--- OUTSIDE RECORDS SUMMARY | 2025-02-19 16:31 | XMS_ITS | Encounter Summary ---
Author Organization [employer] Address [address] [facility] 7t [place] [address] Care Team Providers Care Digital Media Manager Name Role Phone Jud Meza MD Primary Care Provider [phone]- [phone] Emilia Reyez PharmD Unavailable [phone] Reason for Visit * Reason Onset Date Comments Med Refill 02/18/2025 Encounter Details Date Type Department Care Team ([facility] st Contact Info) Description 02/18/2025 Refill [facility] [address] [place] [address] Danyelle Juares, RN [address] [place] [address] Chronic pain syndrome Social History Tobacco Use Types Packs/Day Years [...] [facility] [address] [place] [address] Emilia Reyez PharmD [address] [place] [address] 04/21/2025 2:30 PM EDT Telemedicine [facility] [address] [place] [address] Danyelle Juares, LALO [address] [place] [address] documented as of this encounter Visit Diagnoses Diagnosis Chronic pain syndrome documented in this encounter Additional Health Concerns Assessment Noted Time PHQ-9 Depression Total Score: 9 01/03/20 25 3:46 PM EDT documented as of this encounter Care Teams Digital Media Manager Relationship Specialty Start Date End Date Jud Meza MD [address] [place] [address] PCP - General Internal Medicine 12/16/11 Emilia Reyez PharmD [address] [place] [address] Pharmacist Internal Medicine 02/11/25 documented as of this encounter
--- OUTSIDE RECORDS SUMMARY | 2025-02-19 16:31 | XMS_ITS | Encounter Summary ---
Author Organization [employer] Address [address] [facility] 7t [place] [address] Care Team Providers Care Card Decorator Name Role Phone Jud Meza MD Primary Care Provider [phone]- [phone] Emilia Reyez PharmD Unavailable [phone] Encounter Details Date Type Department Care Team ([facility] st Contact Info) Description 10/12/2023 Orders Only [facility] [address] [place], [place] [phone] Jud Meza MD [address] [place] [address] Chronic midline low back pain, unspecified whether [...] [facility] [address] [place] [address] Emilia Reyez PharmD [address] [place] [address] 04/21/2025 2:30 PM EDT Telemedicine [facility] [address] [place] [address] Danyelle Juares, LALO [address] [place] [address] documented as of this encounter Visit Diagnoses Diagnosis Chronic midline low back pain, unspecified whether sciatica present- Primary documented in this encounter Care Teams Card Decorator Relationship Specialty Start Date End Date Jud Meza MD [address] [place] [address] PCP - General Internal Medicine 12/16/11 Emilia Reyez, AmenaD [address] [place], [place] [id number] Pharmacist Internal Medicine 02/11/25 documented as of this encounter
--- OUTSIDE RECORDS SUMMARY | 2025-02-19 16:31 | XMS_ITS | Encounter Summary ---
Author Organization [employer] Address [address] [facility] 7t [place] [address] Care Team Providers Care Sulfonator Operator Name Role Phone Jud Meza MD Primary Care Provider [phone]- [phone] Emilia Reyez PharmD Unavailable [phone] Encounter Details Date Type Department Care Team ([facility] st Contact Info) Description 04/05/2024 Orders Only [facility] [address] [place], [place] [phone] Jud Meza MD [address] [place] [address] Diabetes mellitus due to underlying condition with hyperglycemia, without long-term current use of insulin ([facility]) (Primary Dx) Social History Tobacco Use Types [...] Medication Management [facility] [address] [place] [address] Emilia Reyez PharmD [address] [place] [address] 04/21/2025 2:30 PM EDT Telemedicine [facility] [address] [place] [address] Danyelle Juares, RN [address] [place] [address] documented as of this encounter Visit Diagnoses Diagnosis Diabetes mellitus due to underlying condition with hyperglycemia, without long- term current use of insulin ([facility])- Primary documented in this encounter Care Teams Sulfonator Operator Relationship Specialty Start Date End Date Jud Meza MD [address] [place] [address] PCP - General Internal Medicine 12/16/11 Emilia Reyez, AmenaD [address] [place] [address] Pharmacist Internal Medicine 02/11/25 documented as of this encounter
--- OUTSIDE RECORDS SUMMARY | 2025-02-19 16:31 | XMS_ITS | Encounter Summary ---
Author Organization [employer] [facility] Address [address] [place] [address] 7t [place] [address] Care Team Providers Care Jig Borer Name Role Phone Jud Meza MD Primary Care Provider Emilia Reyez PharmD Unavailable [phone] Encounter Details Date Type Department Care Team (Latest Contact Info) Description 04/26/2019 Abstract [facility] CONVERSION[facility] Dental, Provider, DDS Social History [...] [facility] [address] [place] [address] Emilia Reyez, PharmD [address] [place] [address] 04/21/2025 2:30 PM EDT Telemedicine [facility] [address] [place] [address] Danyelle Juares, RN [address] [place] [address] documented as of this encounter Visit Diagnoses Not on filedocumented in this encounter Care Teams Jig Borer Relationship Specialty Start Date End Date Jud Meza MD [address] [place] [address] PCP - General Internal Medicine 12/16/11 Emilia Reyez PharmD [address] [place] [address] Pharmacist Internal Medicine 02/11/25 documented as of this encounter
--- OUTSIDE RECORDS SUMMARY | 2025-02-19 16:31 | XMS_ITS | Encounter Summary ---
Author Organization [employer] Address [address] [facility] 7t [place] [address] Care Team Providers Care Derrick Helper Name Role Phone Jud Meza MD Primary Care Provider [phone] Emilia Reyez PharmD Unavailable [phone] Reason for Visit * Reason Onset Date Comments Referral 03/21/2024 Encounter Details Date Type Department Care Team ([facility] st Contact Info) Description 03/21/[address] [facility] MEDICINE [address] [place] [address] Jud Meza MD [address] [place] [address] Referral Social History Tobacco Use Types Packs/Day [...] the orthopedic surgery to be sent to [facility] [place], [place] fax # [phone] patient stated has already made a appt for 06/11 @ 2pm documented in this encounter Plan of Treatment Upcoming Encounters Date Type Department Care Team (Late st Contact Info) Description 03/11/2025 3:00 PM EDT Medication Management [facility] [address] [place] [address] Emilia Reyez PharmD [address] [place] [address] 04/21/2025 2:30 PM EDT Telemedicine [facility] [address] [place] [address] Danyelle Juares RN [address] [place] [address] documented as of this encounter Visit Diagnoses Not on filedocumented in this encounter Care Teams Derrick Helper Relationship Specialty Start Date End Date Jud Meza MD [address] [place] [address] PCP - General Internal Medicine 12/16/11 Emilia Reyez, AmenaD [address] [place] [address] [place] [address] Pharmacist Internal Medicine 02/11/25 documented as of this encounter
--- OUTSIDE RECORDS SUMMARY | 2025-02-19 16:31 | XMS_ITS | Encounter Summary ---
Author Organization [employer] Address [address] [place] [address] Care Team Providers Care Forest Management Professor Name Role Phone Jud Meza MD Primary Care Provider [phone] Emilia Reyez PharmD Unavailable [phone] Reason for Referral * Hospital - Outpatient (Routine) - Authorized Specialty Diagnoses / Procedures Referred By Contac t Referred To Contact Diagnoses Other sleep apnea Procedures Polysomnography Jud Meza MD [address] [place] [address] Phone: tel: fax: Sleep Medicine Service [facility] [address] [place] [address], [address] [place] [address] Phone: tel: fax: Referral ID Status Reason Start Date Expiration Date V isits Requested Visits Authorized [id number] Authorized 02/17/2025 02/17/2026 1 1 Reason for Visit * Reason Comments Sleep study request Depression Encounter Details Date Type Department Care Team ([facility] Contact Info) Description 02/17/2025 1:00 PM EDT Office Visit [facility] [address] [place] [address] Jud Meza MD [address] [place] [address] Diabetes mellitus due to underlying condition with hyperglycemia, without long-term current use of insulin (CMS/HCC) (Primary Dx); Benign hypertension; Other sleep apnea; [...] 1:19 PM EDT documented in this encounter Progress Notes * Jud Meza MD - 02/17/2025 1:00 PM EDT SUBJECTIVE Torito Rendon is a 65 y.o. male who presents for Sleep study request and Depression. DepressionPatient is not experiencing: choking sensation. History of sleep apnea for over 20 years. Has a CPAP for the last 10 years. Received a message on the screen of the CPAP asking patient to contact his PCP. He also contacted his CPAP provider and beatrice suggested to contact his PCP to consider getting a new sleep study. He uses his CPAP device 4 to 8 hours at night and he feels that he benefits from the use of the device. Feels less fatigue during the the daytime. Patient also reports presents of a growth of the right thumb finger and would like to get that evaluated. It has been present for several years. Sometimes tender to palpation. Denies any redness or swelling around the growth. Also reports difficulty ambulating over long distances with his history of osteoarthritis of the lumbar spine. Patient is requesting to get a wheelchair Patient Active Problem List Diagnosis Right ankle pain Backache Benign hypertension Calcific tendinitis Stage 1 chronic kidney disease Depressive disorder Disorder of skeletal muscle Dyspeptic diarrhea Gout Spondylosis without myelopathy Calcific Achilles tendinitis of right lower extremity History of alcohol abuse Diabetic peripheral neuropathy ([facility]) Class 1 obesity Chronic low back pain Bipolar disorder in partial remission (CMS/HCC) Dyslipidemia Left wrist pain Left leg weakness Diabetes mellitus due to underlying condition with hyperglycemia, without long- term current use of insulin (CMS/[facility]) Long-term current use of opiate analgesic Allergies Allergen Reactions Prednisone Current Outpatient Medications on File Prior to Visit Medication Sig Dispense Refill acetaminophen (Tylenol) 500 MG tablet take 1 tablet by oral route every 8 hours as needed as neededfor pain 30 tablet 3 allopurinol (Zyloprim) 300 MG tablet TAKE 1 TABLET BY MOUTH TWICE A DAY 180 tablet 3 b complex vitamins capsule Take 1 capsule by mouth Once per day. 30 capsule 11 betamethasone valerate (Valisone) 0.1 % ointment Apply topically if needed in the morning and at bedtime (dryness). 15 g 0 betamethasone, augmented, (Diprolene) 0.05 % ointment Apply topically 2 times daily. 15 g 0 Blood Glucose Monitoring Suppl (FreeStyle Lite) w/Device kit Test 1 time by subcutaneous route oncea day clonazePAM (KlonoPIN) 0.5 MG tablet Take 1 tablet by mouth 2 times daily. cloNIDine (Catapres) 0.1 MG tablet Take 0.1 mg by mouth 2 times daily. Dextrose, Diabetic Use, (glucose) 1 g chewable tablet ( If FS is less than 70 mg/dl ) not to exceedmore than 4gm per day Dulaglutide (Trulicity) 0.75 MG/0.5ML solution auto-injector Inject 0.75 mg under the skin 1 (one) time per week. 2 mL 2 DULoxetine (Cymbalta) [address] capsule Take 1 capsule (20 mg) by mouth 2 times daily. Do not crush or chew. 60 capsule 11 fenofibrate (Tricor) 48 MG tablet TAKE 1 TABLET BY MOUTH EVERY DAY 90 tablet 3 FLUoxetine (PROzac) 20 MG capsule Take 60 mg by mouth in the morning. FreeStyle lancets USE TO TEST BLOOD SUGAR ONCE A DAY. E11.65 100 each 3 gabapentin (Neurontin) 800 MG tablet TAKE 1 TABLET BY MOUTH THREE TIMES A DAY 90 tablet 11 glucose blood (FREESTYLE LITE) test strip USE TO TEST BLOOD SUGAR ONCE A DAY 50 strip 5 latanoprost (Xalatan) 0.005 % ophthalmic solution INSTILL 1 DROP INTO BOTH EYES EVERY DAY AT NIGHT loperamide (Imodium) 2 MG capsule take 2 capsule by oral route after 1st loose stool, followed by 1capsule after each subsequent loose stool not to exceed 16 mg/day as needed for loos stools losartan (Cozaar) 25 MG tablet Take 1 tablet (25 mg) by mouth Once per day. 30 tablet 11 Magnesium Cl-Calcium Carbonate 71.5-119 MG tablet delayed-release take 1 tab daily meclizine (Antivert) 12.5 MG tablet take 1 tablet by oral route 3 times every day as needed naloxone (Narcan) 4 mg/0.1 mL nasal spray spray 0.1 milliliter by intranasal route in 1 nostril mayrepeat dose every 2-3 minutes as needed alternating nostrils with each dose omeprazole (PriLOSEC) [address] capsule TAKE 1 CAPSULE BY MOUTH TWICE A DAY 180 capsule 3 oxyCODONE-acetaminophen (Percocet) 5-325 MG tablet Take 1 tablet by mouth every 8 (eight) hours if needed for severe pain for up to 15 days. 45 tablet 0 QUEtiapine (SEROquel) 25 MG tablet TAKE 1 TABLET BY MOUTH DAILY,X30 DAYS NEEDED FOR AGITATION repaglinide (Prandin) 2 MG tablet Take 1 tablet (2 mg) by mouth before breakfast, before lunch, andbefore evening meal. 90 tablet 11 simvastatin (Zocor) 20 MG tablet TAKE 1 TABLET BY MOUTH ONCE DAILY IN EVENING 90 tablet 3 Sunscreens (Total Block SPF 60 Cover Up) lotion To use daily on the face triamcinolone (Kenalog) 0.1 % cream Apply topically 2 times daily. 80 g 11 triamterene-hydrochlorothiazide (Maxzide-25) 37.5-25 MG tablet TAKE 1 TABLET BY MOUTH EVERY DAY 90 tablet 3 [DISCONTINUED] Continuous Glucose Metal Buffer (FreeStyle Davian 2 [place]) device SCAN SENSOR EVERY 8 HOURS E08.65 1 each 0 [DISCONTINUED] Continuous Glucose Sensor (FreeStyle Davian 2 Sensor) misc Apply 1 sensor every 14 days 2 each 11 [DISCONTINUED] gabapentin (Neurontin) 800 MG tablet TAKE 1 TABLET BY MOUTH THREE TIMES A DAY 261 tablet 1 [DISCONTINUED] glucose blood (FreeStyle InsuLinx Test) test strip Use 1 by To Skin route every day [DISCONTINUED] Januvia 100 MG tablet TAKE 1 TABLET BY MOUTH EVERY DAY IN THE MORNING 90 tablet 11 [DISCONTINUED] triamterene (Dyrenium) 50 MG capsule take 1 capsule by oral route every day after a meal [DISCONTINUED] triamterene-hydrochlorothiazide (Maxzide-25) 37.5-25 MG tablet TAKE 1 TABLET BY MOUTH EVERY DAY 90 tablet 3 No current facility-administered medications on file prior to visit. Review of Systems Constitutional: Negative for activity change, appetite change and chills. Respiratory: Negative for cough, choking and chest tightness. Gastrointestinal: Negative for anal bleeding and blood in stool. Musculoskeletal: Positive for arthralgias, back pain and gait problem. Psychiatric/Behavioral: Positive for depression. OBJECTIVE Vitals: 02/17/25 1319 BP: 134/76 BP Location: Left arm Patient Position: Sitting BP Cuff Size: Adult long Pulse: 78 Resp: 19 Temp: 98 ??F (36.7 ??C) TempSrc: Oral SpO2: 98% Weight: 268 lb (122 kg) Height: 6' 2 (1.88 m) Physical Exam Constitutional: General: He is not in acute distress. Appearance: Normal appearance. He is not ill-appearing, toxic-appearing or diaphoretic. Pulmonary: Effort: Pulmonary effort is normal. Skin: General: Skin is warm. Neurological: General: No focal deficit present. Mental Status: He is alert. Psychiatric: Mood and Affect: Mood normal. Assessment/Plan Assessment/Plan Diagnoses and all orders for this visit: Diabetes mellitus due to underlying condition with hyperglycemia, without long- term current use of insulin ([facility]) Comments: Started on Trulicity No acute intervention today To follow-up with Emilia as scheduled. Orders: - CBC auto differential; Future - Lipid Panel, Standard; Future - TSH W/Reflex to FT4; Future - Comprehensive Metabolic Panel; Future - Albumin, Random Urine W/Creatinine; Future Benign hypertension Comments: Stable No change. Orders: - CBC auto differential; Future - Lipid Panel, Standard; Future - TSH W/Reflex to FT4; Future - Comprehensive Metabolic Panel; Future - Albumin, Random Urine W/Creatinine; Future Other sleep apnea Comments: Patient will be contacted with the results of the sleep study Orders: - Polysomnography; Future Thumb lesion Comments: Doubt Heberden node. Possible ganglion cyst X-ray ordered. We will consider referral to hand surgery after the x-ray. Orders: - XR finger - thumb right min 2V; Future Spondylosis without myelopathy Comments: I will attempt to order a wheelchair which might improve patient's mobility and his quality of lifegiven his history of limited range of motion of his LS and his reported difficulty ambulating with and w/o a gait aid. Orders: - Wheelchair documented in this encounter Plan of Treatment Upcoming Encounters Date Type Department Care Team (Late st Contact Info) Description 03/11/2025 3:00 PM EDT Medication Management [facility] MED & PEDS [address] [place] [address] Emilia Reyez, [place] [address] [place] [address] 04/21/2025 2:30 PM EDT Telemedicine [facility] MED & PEDS [address] [place] [address] Danyelle Juares, RN [address] [place], [place] Scheduled Orders Name Type Priority Associated Diagnoses Orde r Schedule Albumin, Random Urine W/Creatinine Lab Routine Diabetes mellitus due to underlying condition with hyperglycemia, without long-term current use of insulin ([facility]/HCC) Benign hypertension Expected: 02/17/2025 (Approximate), Expires: 02/17/2026 Polysomnography [facility] Routine Other sleep apnea Expected: 02/17/2025 (Approximate), Expires: 02/17/2026 XR finger - thumb right min 2V Imaging Routine Thumb lesion Expected: 02/17/2025, Expires: 02/17/2026 documented as of this encounter Procedures Procedure Name Priority Date/Time Associated Diagnosis Comments TSH W/REFLEX TO FT4 Routine 02/17/2025 1 :56 PM EDT Diabetes mellitus due to underlying condition with hyperglycemia, without long-term current use of insulin (CMS/HCC) Benign hypertension CBC WITH AUTO DIFFERENTIAL Routine 02/17/2025 1:56 PM EDT Diabetes mellitus due to underlying condition with hyperglycemia, without long-term current use of insulin ([facility]/HCC) Benign hypertension LIPID PANEL, STANDARD Routine 02/17/2025 1:56 PM EDT Diabetes mellitus due to underlying condition with hyperglycemia, without long-term current use of insulin ([facility]/HCC) Benign hypertension COMPREHENSIVE METABOLIC PANEL Routine 02/17/2025 1:56 PM EDT Diabetes mellitus due to underlying condition with hyperglycemia, without long-term current use of insulin (CMS/HCC) Benign hypertension documented in this encounter Results * (ABNORMAL) Comprehensive Metabolic Panel (02/17/2025 1:56 PM EDT) Sodium 140 135 - 145 mmol/L [facility] Potassium 3.4 3.3 - 5.1 mmol/L [facility] Chloride 105 96 - 108 mmol/L [facility] Carbon Dioxide 24 22 - 29 mmol/L [facility] Anion Gap 14 12 - 20 [facility] Urea Nitrogen (BUN) 16 9 - 16 mg/dL [facility] Creatinine, Serum 0.80 0.5 - 1.4 mg/dL [facility] Estimated Glomerular Filt Rate >60 [facility] Comment:Chronic Kidney Disea se: Estimated GFR < 60 mL/min/1.96s8Anssbc Kidney Disease: Estimated GFR < 15 mL/min/1.73m2 Glucose 180(H) 60 - 115 mg/dL [facility] Calcium 8.6 8.4 - 10.2 mg/dL [facility] Bilirubin, Total 0.3 0.0 - 1.0 mg/dL [facility] Aspartate Amino Transferase 47(H) 5 - 37 U/L [facility] Alanine Aminotransferase 50(H) 0 - 40 U/L [facility] Total Protein 7.1 6.5 - 8.0 g/dL [facility] Albumin Level 4.2 3.5 - 5.0 g/dL [facility] Alkaline Phosphatase 84 39 - 117 U/L [facility] Blood Venous blood specimen / Unknown 02/17/2025 1:56 PM EDT 02/17/2025 5:26 PM EDT us Jud Meza MD LAB BLOOD ORDERABLES Final Result [facility] [address] [place] [phone] * TSH W/Reflex to FT4 (02/17/2025 1:56 PM EDT) TSH reflex Free T4 2.44 0.32 - 4.0 uIU/mL [facility] Blood Venous blood specimen / Unknown 02/17/2025 1:56 PM EDT 02/17/2025 5:26 PM EDT Jud Meza MD LAB BLOOD ORDERABLES Final Result Performing Organization Address [facility] Co de Phone Number [facility] [address] [place] [address] [phone] * (ABNORMAL) Lipid Panel, Standard (02/17/2025 1:56 PM EDT) Triglycerides 255(H) <150 mg/dL [facility] Comment:Desirable Triglyceri de: less than 150 mg/dLBorderline High Triglyceride 150-199 mg/dLHigh Triglyceride: 200-499 mg/dLVery High Triglyceride: greater than or equal to 5OO mg/dL Cholesterol 183 <200 mg/dL [facility] Comment:Desirable Cholestero l: less than 200 mg/dLBorderline High Cholesterol: 200-239 mg/dLHigh Cholesterol: greater than 239 mg/dL LDL Cholesterol Calculated 93 <100 mg/dL [facility] Comment:Desirable LDL: less than 100 mg/dLNear Optimal/Above Optimal LDL: 110- 129 mg/dLBorderline High LDL: 130-159 mg/dLHigh LDL: 160-189 mg/dLVery High LDL: greater than or equal to 190 mg/dL HDL Cholesterol 39(L) >40 mg/dL [facility] Comment:Desirable HDL: great er than 40 mg/dL Note: This HDL assay may give artificially low results in patients with liver disease. Blood Venous blood specimen / Unknown 02/17/2025 1:56 PM EDT 02/17/2025 5:26 PM EDT us Jud Meza MD LAB BLOOD ORDERABLES Final Result Performing Organization Address [facility]/ZIP Co de Phone Number [facility] [address] [place] [address] [phone] * CBC auto differential (02/17/2025 1:56 PM EDT) White Blood Count 5.2 4.8 - 10.8 X10*3/uL [facility] Red Blood Count 4.92 4.60 - 5.80 X10*6/uL [facility] Hemoglobin 14.3 14.0 - 18.0 g/dl [facility] Hematocrit 43.6 42.0 - 52.0 % [facility] Mean Corpuscular Volume 88.6 80.0 - 98.0 fL [facility] Mean Corpuscular Hemoglobin 29.1 27.0 - 33.0 pg [facility] Mean Corpuscular HGB Conc 32.8 31.0 - 36.0 g/dl [facility] Red Cell Distribution Width 13.4 11.0 - 16.0 % [facility] Platelet Count 264 160 - 400 X10*3/uL [facility] Mean Platelet Volume 10.0 9.4 - 12.4 fL [facility] Neutrophils Percent Auto 60.6 45 - 73 % [facility] Imm Gran Pct Auto 0.4 0.0 - 0.4 % [facility] Lymphocytes Percent Auto 28.1 20 - 40 % [facility] Monocytes Percent Auto 7.1 2 - 11 % [facility] Eosinophils Percent Auto 2.7 0 - 4 % [facility] Basophils Percent Auto 1.1 0 - 2 % [facility] NRBC Pct Auto 0.0 0.0 - 0.2 /100WBC [facility] Neutrophils Absolute Auto 3.2 2.0 - 8.3 x10*3/uL [facility] Imm Gran Abs Auto 0.02 0.00 - 0.03 X10*3/uL [facility] Lymphocytes Absolute Auto 1.5 1.2 - 4.9 X10*3/uL [facility] Monocytes Absolute Auto 0.4 0.1 - 1.2 X10*3/uL [facility] Eosinophils Absolute Auto 0.1 0.0 - 0.4 X10*3/uL [facility] Basophils Absolute Auto 0.1 0.0 - 0.2 X10*3/uL [facility] NRBC Abs Auto 0.000 0.0 - 0.012 X10*3/uL [facility] Blood Venous blood specimen / Unknown 02/17/2025 1:56 PM EDT 02/17/2025 5:26 PM EDT Jud Meza MD LAB BLOOD ORDERABLES Final Result [facility] [address] [place] [address] [phone] documented in this encounter Visit Diagnoses Diagnosis Diabetes mellitus due to underlying condition with hyperglycemia, without long- term current use of insulin ([facility])- Primary Benign hypertension Essential hypertension, benign Other sleep apnea Thumb lesion Spondylosis without myelopathy Spondylosis of unspecified site without mention of myelopathy documented in this encounter Additional Health Concerns Assessment Noted Time PHQ-9 Depression Total Score: 9 01/03/20 3:46 PM EDT documented as of this encounter Care Teams Forest Management Professor Relationship Specialty Start Date End Date Jud Meza MD [address] [place] [phone] PCP - General Internal Medicine 12/16/11 Emilia Reyez PharmD [address] [place] [address] Pharmacist Internal Medicine 02/11/25 documented as of this encounter
--- OUTSIDE RECORDS SUMMARY | 2025-02-19 16:31 | XMS_ITS | Encounter Summary ---
Author Organization [employer] Address [address] [facility] [address] [place] [address] Care Team Providers Care Medical Staff Specialist Name Role Phone Jud Meza MD Primary Care Provider [phone]- [phone] Emilia Reyez PharmD Unavailable [phone] Reason for Visit * Reason Onset Date Comments Med Refill 09/27/2022 Encounter Details Date Type Department Care Team (Late st Contact Info) Description 09/27/2022 Telephone [facility] MEDICINE [address] [place] [address] Jud Meza MD [address] [place], [place] [phone] Med Refill Social History Tobacco Use Types [...] on medication percocet 5mg please send to [facility] sfld * Telephone Encounter - Torito Noyola - 09/27/2022 10:16 AM EST Tc from requesting to r/s appt on 09/28/22 televisit ( r/s from 09/14/2022, LR. (BS Log) documented in this encounter Plan of Treatment Upcoming Encounters Date Type Department Care Team (Late st Contact Info) Description 03/11/2025 3:00 PM EDT Medication Management [facility] MED & PEDS [address] [place] [address] Emilia Reyez PharmD [address] [place] [address] 04/21/2025 2:30 PM EDT Telemedicine [facility] MED & PEDS [address] [place] [address] Danyelle Juares, LALO [address] [place] [address] documented as of this encounter Visit Diagnoses Not on filedocumented in this encounter Care Teams Medical Staff Specialist Relationship Specialty Start Date End Date Jud Meza MD [address] [place] [address] PCP - General Internal Medicine 12/16/11 Emilia Reyez PharmD [address] [place] [address] Pharmacist Internal Medicine 02/11/25 documented as of this encounter
--- OUTSIDE RECORDS SUMMARY | 2025-02-19 16:31 | XMS_ITS | Encounter Summary ---
Author Organization [email or web address] Address [address] [facility] 7 [place] [address] Care Team Providers Care Sampler First Name Role Phone Jud Meza MD Primary Care Provider [phone] Emilia Reyez PharmD Unavailable [phone] Reason for Visit * Reason Onset Date Comments RESCHEDULE DERM APPT 02/14/2025 Encounter Details Date Type Department Care Team ([facility] st Contact Info) Description 02/14/2025 Telephone [facility] MED & PEDS [address] [place] [address] Jud Meza MD [address] [place] [address] RESCHEDULE DERM APPT Social History Tobacco Use [...] [facility] [address] [place] [address] Emilia Reyez, PharmD [address] [place] [address] 04/21/2025 2:30 PM EDT Telemedicine [facility] MED & PEDS [address] [place] [address] Danyelle Juares, RN [address] [place] [address] documented as of this encounter Visit Diagnoses Not on filedocumented in this encounter Additional Health Concerns Assessment Noted Time PHQ-9 Depression Total Score: 9 01/03/20 25 3:46 PM EDT documented as of this encounter Care Teams Sampler First Relationship Specialty Start Date End Date Jud Meza MD [address] [place] [address] PCP - General Internal Medicine 12/16/11 Emilia Reyez PharmD [address] [place] [address] Pharmacist Internal Medicine 02/11/25 documented as of this encounter
--- OUTSIDE RECORDS SUMMARY | 2025-02-19 16:31 | XMS_ITS | Encounter Summary ---
Author Organization [employer] Address [address] [facility] [address] [place] [address] Care Team Providers Care Nurse Name Role Phone Jud Meza MD Primary Care Provider [phone]- [phone] Emilia Reyez PharmD Unavailable [phone] Reason for Visit * Reason Onset Date Comments Med Refill 09/06/2023 Encounter Details Date Type Department Care Team ([facility] st Contact Info) Description 09/06/2023 Telephone [facility] MEDICINE [address] [place] [address] Jud Meza MD [address] [place], [place] [phone] Med Refill Social History Tobacco Use Types [...] Description 03/11/2025 3:00 PM EDT Medication Management [facility] MED & PEDS [address] [place] [address] Emilia Reyez PharmD [address] [place] [address] 04/21/2025 2:30 PM EDT Telemedicine [facility] MED & PEDS [address] [place] [address] Danyelle Juares, RN [address] [place] [address] documented as of this encounter Visit Diagnoses Not on filedocumented in this encounter Care Teams Nurse Relationship Specialty Start Date End Date Jud Meza MD [address] [place] [address] PCP - General Internal Medicine 12/16/11 Emilia Reyez PharmD [address] [place], [place] [phone] Pharmacist Internal Medicine 02/11/25 documented as of this encounter
--- OUTSIDE RECORDS SUMMARY | 2025-02-19 16:31 | XMS_ITS | Encounter Summary ---
Author Organization [employer] Address [address] [facility] 7 [place] [address] Care Team Providers Care Irrigator Head Name Role Phone Jud Meza MD Primary Care Provider [phone]- [phone] Emilia Reyez PharmD Unavailable [phone] Encounter Details Date Type Department Care Team ([facility] st Contact Info) Description 04/17/2024 Telephone [facility] MEDICINE [address] [place] [address] Jud Meza MD [address] [place], [place] [phone] Social History Tobacco Use Types Packs/Day Years [...] [facility] [address] [place] [address] Emilia Reyez PharmD [address] [place] [address] 04/21/2025 2:30 PM EDT Telemedicine [facility] [address] [place] [address] Danyelle Juares, LALO [address] [place] [address] documented as of this encounter Visit Diagnoses Not on filedocumented in this encounter Care Teams Irrigator Head Relationship Specialty Start Date End Date Jud Meza MD [address] [place] [address] PCP - General Internal Medicine 12/16/11 Emilia Reyez PharmD [address] [place] [address] Pharmacist Internal Medicine 02/11/25 documented as of this encounter
--- OUTSIDE RECORDS SUMMARY | 2025-02-19 16:31 | XMS_ITS | Encounter Summary ---
Author Organization [employer] Address [address] [place] [address] 7 [place] [address] Care Team Providers Care Mill Beam Fitter Name Role Phone Jud Meza MD Primary Care Provider +1- [phone] Emilia Reyez PharmD Unavailable [phone] Reason for Referral * Consultation (Routine) - Closed Specialty Diagnoses / Procedures Referred By Reuben regan Referred To Contact Orthopaedic Surgery Diagnoses Chronic midline low back pain, unspecified whether sciatica present Spondylosis without myelopathy Jud Meza MD [address] [place] [address] Phone: tel: fax: Referral ID Status Reason Start Date Expiration Date V isits Requested Visits Authorized [id number] Closed Specialty Services Required 03/12/2024 03/12/2025 1 1 Encounter Details Date Type Department Care Team (Late st Contact Info) Description 03/12/2024 Orders Only [facility] CHC MED & PEDS 505 [place] [address] Jud Meza MD 505 [place] [address] Chronic midline low back pain, unspecified whether [...] [facility] MED & PEDS 505 [place] [address] Emilia Reyez PharmD [address] [place] [address] 04/21/2025 2:30 PM EDT Telemedicine [facility] MED & PEDS 505 [place] [address] Danyelle Juares, RN 505 [place] [address] Scheduled Referrals Name Type Priority Associated Diagnoses [...] myelopathy documented in this encounter Care Teams Mill Beam Fitter Relationship Specialty Start Date End Date Jud Meza MD [address] [place] [address] PCP - General Internal Medicine 12/16/11 Emilia Reyez PharmD [address] [place] [address] Pharmacist Internal Medicine 02/11/25 documented as of this encounter
--- OUTSIDE RECORDS SUMMARY | 2025-02-19 16:31 | XMS_ITS | Encounter Summary ---
Author Organization [email or web address] Address 75 [facility] 7t [place] [address] Care Team Providers Care Weighmaster Name Role Phone Jud Meza MD Primary Care Provider +1- [phone] Emilia Reyez PharmD Unavailable [phone] Reason for Visit * Reason Onset Date Comments Med Refill 06/11/2024 Encounter Details Date Type Department Care Team (Late st Contact Info) Description 06/11/2024 Telephone [facility] MEDICINE 230 [place] [address] Jud Meza MD 505 [place], [place] [phone] Med Refill Social History Tobacco Use Types [...] 5-325 MG tablet To be sent to: [facility]/pharmacy #[id number] - [place], [place] - [address] documented in this encounter Plan of Treatment Upcoming Encounters Date Type Department Care Team (Late st Contact Info) Description 03/11/2025 3:00 PM EDT Medication Management [facility] MED & PEDS 505 [place] [address] Emilia Reyez PharmD 230 [place] [address] 04/21/2025 2:30 PM EDT Telemedicine [facility] MED & PEDS 505 [place] [address] Danyelle Juares, LALO 505 [place] [address] documented as of this encounter Visit Diagnoses Not on filedocumented in this encounter Care Teams Weighmaster Relationship Specialty Start Date End Date Jud Meza MD 505 [place] [address] PCP - General Internal Medicine 12/16/11 Emilia Reyez PharmD 230 [place] [address] Pharmacist Internal Medicine 02/11/25 documented as of this encounter
--- OUTSIDE RECORDS SUMMARY | 2025-02-19 16:31 | XMS_ITS | Encounter Summary ---
Author Organization [email or web address] Address 75 [facility] 7 [place] [address] Care Team Providers Care Convolute Tube Winder Name Role Phone Jud Meza MD Primary Care Provider [phone] [phone] Emilia Reyez PharmD Unavailable [phone] Reason for Visit * Reason Comments Med Change Request Encounter Details Date Type Department Care Team ([facility] Contact Info) Description 03/28/[address] [facility] CHC MED & PEDS [address] [place], [place] [phone] Jud Meza MD 505 [place] [address] Diabetes mellitus due to underlying condition with hyperglycemia, without long-term current use of insulin ([facility]) Social History Tobacco Use Types Packs/Day [...] [facility] 505 [place] [address] Emilia Reyez PharmD 230 [place] [address] 04/21/2025 2:30 PM EDT Telemedicine [facility] MED & PEDS 505 [place] [address] Danyelle Juares, LALO 505 [place] [address] documented as of this encounter Visit Diagnoses Diagnosis Diabetes mellitus due to underlying condition with hyperglycemia, without long- term current use of insulin ([facility]) documented in this encounter Care Teams Convolute Tube Winder Relationship Specialty Start Date End Date Jud Meza MD 505 [place] [address] PCP - General Internal Medicine 12/16/11 Emilia Reyez PharmD 230 [place] [address] Pharmacist Internal Medicine 02/11/25 documented as of this encounter
--- OUTSIDE RECORDS SUMMARY | 2025-02-19 16:31 | XMS_ITS | Encounter Summary ---
Author Organization [email or web address] Address 75 [facility] 7 [place] [address] Care Team Providers Care Burlap Man Name Role Phone Jud Meza MD Primary Care Provider [phone]- [phone] Emilia Reyez PharmD Unavailable [phone] Reason for Visit * Reason Onset Date Comments Results 02/18/2025 Encounter Details Date Type Department Care Team ([facility] st Contact Info) Description 02/18/2025 Telephone [facility] CHC MED & PEDS 505 [place] [address] Jud Meza MD 505 [place] [address] Results Social History Tobacco Use Types Packs/Day Years [...] encounter Miscellaneous Notes * Telephone Encounter - Corrine Caro RN - 02/19/2025 9:23 AM EDT TC to pt, no answer. VM left with clinic number and telling pt that he will be receiving a [employer] message with lab results. * Telephone Encounter - Balwinder Bennett - 02/18/2025 1:50 PM EDT Tc from pt returning call in regards prior message. Please return call [phone] * Telephone Encounter - Corrine Caro RN - 02/18/2025 10:47 AM EDT TC to pt. No answer. VM left. ----- Message from Jud Meza MD sent at 02/17/2025 8:06 PM EDT ----- Please call. Elevated triglyceride level. Patient is to be on fenofibrate and simvastatin. Please find out if he is compliant to his medication. Regardless he should avoid refined sugar. The blood test also shows elevated liver enzymes. He needs a workup consisting of an abdominal ultrasound with more blood work in an attempt to find out the cause of the abnormal liver enzymes. ----- Message ----- From: Interface, Lab Results In Sent: 02/17/2025 5:40 PM EDT To: Jud Meza MD documented in this encounter Plan of Treatment Upcoming Encounters Date Type Department Care Team (Late st Contact Info) Description 03/11/2025 3:00 PM EDT Medication Management [facility] MED & PEDS 505 [place] [address] Emilia Reyez PharmD 230 [place] [address] 04/21/2025 2:30 PM EDT Telemedicine [facility] MED & PEDS 505 [place] [address] Danyelle Juares, LALO 505 [place] [address] documented as of this encounter Visit Diagnoses Not on filedocumented in this encounter Additional Health Concerns Assessment Noted Time PHQ-9 Depression Total Score: 9 01/03/20 3:46 PM EDT documented as of this encounter Care Teams Burlap Man Relationship Specialty Start Date End Date Jud Meza MD 505 [place] [address] PCP - General Internal Medicine 12/16/11 Emilia Reyez PharmD 230 [place], [place] [phone] Pharmacist Internal Medicine 02/11/25 documented as of this encounter
--- OUTSIDE RECORDS SUMMARY | 2025-02-19 16:31 | XMS_ITS | Encounter Summary ---
Author Organization [employer] Address 75 [facility] 7t [place] [address] Care Team Providers Care Biodiesel Production Associate Name Role Phone Jud Meza MD Primary Care Provider [phone] Emilia Reyez PharmD Unavailable [phone] Reason for Visit * Reason Onset Date Comments Nurse Triage 05/09/2024 Encounter Details Date Type Department Care Team ([facility] st Contact Info) Description 05/09/2024 Telephone [facility] MEDICINE 230 [place] [address] Jud Meza MD 505 [place], [place] [phone] Nurse Triage Social History Tobacco Use Types [...] t he electric, gas, oil or water [employer] threatened to shut off services in your [...] Description 03/11/2025 3:00 PM EDT Medication Management [facility] MED & PEDS 505 [place] [address] Emilia Reyez PharmD 230 [place] [address] 04/21/2025 2:30 PM EDT Telemedicine [facility] MED & PEDS 505 [place] [address] Danyelle Juares, LALO 505 [place] [address] documented as of this encounter Visit Diagnoses Not on filedocumented in this encounter Care Teams Biodiesel Production Associate Relationship Specialty Start Date End Date Jud eMza MD 505 [place] [address] PCP - General Internal Medicine 12/16/11 Reyez, Harrison Nieto 230 [place] [address] Pharmacist Internal Medicine 02/11/25 documented as of this encounter
--- OUTSIDE RECORDS SUMMARY | 2025-02-19 16:31 | XMS_ITS | Clinical Summary ---
Author Organization [facility] Address [address] [place] [phone] Phone Care Team Providers Care Rehab Office Coordinator Name Role Phone Jud Meza MD Primary Care Provider [phone] Allergies Active Allergy Reactions Criticality Noted Date [...] mmol/L LAB CHEMISTRY METHOD 11/02/2024 6:47 AM [facility] Potassium 3.3(L) 3.5 - 5.5 mmol/L LAB CHEMISTRY METHOD 11/02/2024 6:47 AM [facility] Chloride 100 96 - 110 mmol/L LAB CHEMISTRY METHOD 11/02/2024 6:47 AM [facility] CO2 28 21 - 32 mmol/L LAB CHEMISTRY METHOD 11/02/2024 6:47 AM [facility] Anion Gap 7 3 - 11 LAB CHEMISTRY METHOD 11/02/2024 6:47 AM [facility] Glucose 216(H) 70 - 100 mg/dL LAB CHEMISTRY METHOD 11/02/2024 6:47 AM [facility] BUN 17 5 - 25 mg/dL LAB CHEMISTRY METHOD 11/02/2024 6:47 AM [facility] Creatinine 0.94 0.70 - 1.30 mg/dL LAB CHEMISTRY METHOD 11/02/2024 6:47 AM [facility] eGFR 91 >=60 mL/min/1. 73m2 LAB CHEMISTRY METHOD 11/02/2024 6:47 AM [facility] Comment:Calculation based on the??Chronic Kidney Disease Epidemiology Collaboration (CKD-EPI) equation refit??without adjustment for race. BUN/Creatinine Ratio 18.1 LAB CHEMISTRY METHOD 11/02/2024 6:47 AM [facility] Calcium 8.7 8.5 - 10.5 mg/dL LAB CHEMISTRY METHOD 11/02/2024 6:47 AM [facility] Blood Venous blood specimen / Unknown Venipuncture / Unknown 11/02/2024 5:41 AM EST 11/02/2024 5:56 AM EST Judith Villarreal MD LAB BLOOD ORDERABLES Fin al Result [facility] ([facility] [address] [place] [address], from Last 3 Months or Most Recently Relevant to Health Maintenance Insurance MEDICARE MEDICAID - [place] Care Teams Rehab Office Coordinator Relationship Specialty Start Date End Date Jud Meza MD [address] [place] [address] PCP - General Internal Medicine 04/15/19
[2025-02-19 18:49] LABS: Creatinine Urine 88.32 mg/dL; Microalbum/Creatinine Ratio Ur 15.8 ug/mg cr (<30)
== END 2025-02-19 16:06 | disposition home or self-care (01) ==
LOC: HO.CHCLNP 16:05
PROVIDERS: Visit Provider Internal Medicine
DX: I10 Essential (primary) hypertension (principal); E08.65 Diabetes mellitus due to underlying condition with hyperglycemia
CPT/HCPCS: 82043; 82570

== ENCOUNTER 2025-04-01 11:33 | Outpatient (REF) | payer MEDICARE, MEDICAID, SELFPAY ==
--- OUTSIDE RECORDS SUMMARY | 2025-04-01 13:15 | XMS_ITS | Encounter Summary ---
Author Organization [employer] Address 75 [facility] 7 [place] [address] Care Team Providers Care Turbo Electric Operator Name Role Phone Jud Meza MD Primary Care Provider [phone] Emilia Reyez PharmD Unavailable [phone] Reason for Visit * Reason Onset Date Comments Med Refill 01/21/2025 Encounter Details Date Type Department Care Team (Late st Contact Info) Description 01/21/2025 Telephone [facility] MEDICINE 230 [place] [address] Jud Meza MD 505 [place] [address] Med Refill Social History Tobacco Use Types [...] 5-325 MG tablet To be sent to: [facility]/pharmacy #[id number] [place] [address] [facility] documented in this encounter Plan of Treatment Upcoming Encounters Date Type Department Care Team (Late st Contact Info) Description 04/08/2025 3:00 PM EDT Medication Management [facility] MED & PEDS 505 [place] [address] Emilia Reyez, PharmD 230 [place] [address] 04/21/2025 2:30 PM EDT Telemedicine [facility] MED & PEDS 505 [place] [address] Danyelle Juares, RN 505 [place] [address] documented as of this encounter Visit Diagnoses Not on filedocumented in this encounter Additional Health Concerns Assessment Noted Time PHQ-9 Depression Total Score: 9 01/03/20 25 3:46 PM EDT documented as of this encounter Care Teams Turbo Electric Operator Relationship Specialty Start Date End Date Jud Meza MD [address] [place] [address] PCP - General Internal Medicine 12/16/11 Emilia Reyez PharmD [address] [place] [address] Pharmacist Internal Medicine 02/11/25 documented as of this encounter
[2025-04-01 14:42] LABS: Prothrombin Time 11.6 SEC (10.9-12.4)
[2025-04-01 14:52] LABS: Iron 67 mcg/dL (45-160); Percent Iron Saturation 20 % (15-50); Total Iron Binding Capacity 337 mcg/dL (228-428); Unsaturated Iron Binding 270 ug/dL
[2025-04-01 15:09] LABS: Ferritin 92 ng/mL (20-250)
[2025-04-02 16:14] LABS: IgA 463 mg/dL (70-320); IgG 767 mg/dL (600-1540); IgM 11 mg/dL (50-300)
== END 2025-04-01 11:34 | disposition home or self-care (01) ==
LOC: HO.CHCLDS 11:33
PROVIDERS: Visit Provider Internal Medicine
DX: M19.09 Primary osteoarthritis, other specified site (principal); R74.01 Elevation of levels of liver transaminase levels
CPT/HCPCS: 36415; 82728; 82784; 83540; 85610

== ENCOUNTER 2025-06-13 15:07 | Outpatient (REF) | payer MEDICARE, MEDICAID, SELFPAY ==
--- OUTSIDE RECORDS SUMMARY | 2024-09-03 10:30 | XMS_ITS ---
Author Organization [facility] [employer] [facility] [employer] [facility] Address [address] [facility] [address] [place] [address] Care Team Providers Care Truck Greaser Name Role Phone Ivan Rollins Primary Care Provider Ismael Berg Unavailable [phone] REASON FOR VISIT 30 min EMG LLE - left foot drop Encounters Encounter Location Date Provider Diagnosis [facility] [employer] [facility] [address] [facility] [address] [place] [address] 09/03/2024 Ismael Thompsno Plan Of Treatment No Information Progress Notes * Torito CHAMBERLAINDOB:1960 (65 yo M)Acc No.[id number]:09/03/2024 Patient: Torito BECERRIL Provider: Marc Thompson MD :1960 A ge:64 Y S ex:Male Date:09/03/2024 Address:[address], [address], [facility] Pcp:Ivan Rollins Subjective: * Chief Complaints: * 1 . 30 min EMG LLE - left foot drop. * Medical History: Objective: * Vitals: Assessment: Plan: * Treatment: * * Electronic signature of James Thompson MD on 06/13/2025 at 02:50 PM EDT Sign off status: Pending * Provider: Marc Thompson MD Date: 11/03/2023 Generated for Tuan whitney/Milton/Alfonsoitting on: 0 06/13/2025 02:50 PM EDT
--- OUTSIDE RECORDS SUMMARY | 2025-06-13 14:00 | XMS_ITS | Encounter Summary ---
Author Organization [employer] Address [address] [place] [address] 7 [place] [address] Care Team Providers Care Mathematical Engineer Name Role Phone Jud Meza MD Primary Care Provider [phone] Emilia Reyez PharmD Unavailable [phone] Reason for Referral * Medications - Closed Specialty Diagnoses / Procedures Referred By Reuben regan Referred To Contact Diagnoses Chronic pain syndrome Rachel Beach FNP 505 [place] [address] Phone: tel: fax: Referral ID Status Reason Start Date Expiration Date Visits Re quested Visits Authorized [id number] Closed 1 1 Encounter Details Date Type Department Care Team ([facility] Contact Info) Description 06/13/2025 2:00 PM EDT Office Visit [facility] CHC MED & PEDS [address] [place] [address] Rachel Beach FNP 505 [place] [address] Rash (Primary Dx); Chronic pain syndrome Social History Tobacco Use Types Packs/Day Years Used Date Smoking Tobacco: Never Passive Smoke Exposure: Never Smokeless Tobacco: Never Tobacco Cessation:Counseling Given: [...] Sign Reading Time Taken Comments Blood Pressure 128/78 06/13/2025 2:13 PM EDT Pulse 92 06/13/2025 2:13 PM EDT Temperature 36.8 C (98.3 F) 06/13/2025 2:13 PM EDT Respiratory Rate 20 06/13/2025 2:13 PM EDT Oxygen Saturation - - Inhaled Oxygen Concentration - - Weight 119 kg (262 lb) 06/13/2025 2:13 PM EDT Height - - Body Mass Index 33.64 06/02/2025 11:40 AM EDT documented in this encounter Plan of Treatment Upcoming Encounters Date Type Department Care Team (Late st Contact Info) Description 07/22/2025 3:00 PM EDT Medication Management [facility] MED & PEDS [address] [place] [address] Emilia Reyez, AmenaD 230 [place] [address] 08/06/2025 3:15 PM EDT Clinical Support [facility] CHC MED & PEDS [address] [place] [address] Danyelle Juares, RN 505 [place] [address] Scheduled Orders Name Type Priority Associated Diagnoses Orde r Schedule Comprehensive Metabolic Panel Lab Routine Rash Expected: 06/13/2025 (Approximate), Expires: 06/13/2026 CBC auto differential Lab Routine Rash Expected: 06/13/2025 (Approximate), Expires: 06/13/2026 Syphilis Screen Lab Routine Rash Expected: 06/13/2025, Expires: 06/13/2026 GURMEET Screen,IFA, with Reflex to Titer and Pattern Lab Routine Rash Expected: 06/13/2025 (Approximate), Expires: 06/13/2026 Sed Rate by Modified [place] Lab Routine Rash Expected: 06/13/2025, Expires: 06/13/2026 documented as of this encounter Visit Diagnoses Diagnosis Rash- Primary Rash and other nonspecific skin eruption Chronic pain syndrome documented in this encounter Additional Health Concerns Assessment Noted Time PHQ-9 Depression Total Score: 9 01/03/20 3:46 PM EDT documented as of this encounter Care Teams Mathematical Engineer Relationship Specialty Start Date End Date Jud Meza MD 505 [place] [address] PCP - General Internal Medicine 12/16/11 Emilia Reyez, PharmD [address] [place] [address] Pharmacist Internal Medicine 02/11/25 documented as of this encounter
--- OUTSIDE RECORDS SUMMARY | 2025-06-13 15:10 | XMS_ITS | Encounter Summary ---
Author Organization [email or web address] Address [address] [place] [address] Care Team Providers Care Certified Nurse Operating Room Name Role Phone Jud Meza MD Primary Care Provider [phone] Emilia Reyez PharmD Unavailable [phone] Reason for Referral * Imaging (Routine) - Closed Specialty Diagnoses / Procedures Referred By Contac t Referred To Contact Radiology Diagnoses Transaminitis Procedures US Abdomen Complete Jud Meza MD [address] [place] [address] Phone: tel: fax: [facility] [address] [place] [address], [place] [address] Phone: tel: fax: Referral ID Status Reason Start Date Expiration Date Visits Re quested Visits Authorized [id number] Closed 02/17/2025 02/17/2026 1 1 Encounter Details Date Type Department Care Team (Late st Contact Info) Description 02/17/2025 Orders Only [facility] CHC MED & PEDS [address] [place] [address] Jud Meza MD [address] [place] [address] Transaminitis (Primary Dx); Primary osteoarthritis, other specified [...] Upcoming Encounters Date Type Department Care Team ([facility] st Contact Info) Description 07/22/2025 3:00 PM EDT Medication Management [facility] MED & PEDS 505 [place] [address] Emilia Reyez, Harrison 230 [place] [address] 08/06/2025 3:15 PM EDT Clinical Support [facility] MED & PEDS 505 [place] [address] Danyelle Juares, LALO 505 [place] [address] Scheduled Orders Name Type Priority Associated Diagnoses Orde r Schedule Alpha 1 Antitrypsin Lab Routine Transaminitis Expected: 02/17/2025 (Approximate), Expires: 02/17/2026 Smooth Muscle Antibody with Reflex to Titer Lab Routine Transaminitis Expected: 02/17/2025 (Approximate), Expires: 02/17/2026 documented as of this encounter Procedures Procedure Name Priority Date/Time Associated Diagnosis Comments US ABDOMEN COMPLETE Routine 04/30/2025 Transaminitis IRON AND TOTAL IRON BINDING CAPACITY Routine 04/01/2025 11:36 AM EDT Transaminitis PROTHROMBIN TIME-INR Routine 04/01/2025 11:36 AM EDT Transaminitis Primary osteoarthritis, other specified site IMMUNOGLOBULINS, QUANTITATIVE, IGA, IGG, IGM Routine 04/01/2025 11:36 AM EDT Transaminitis FERRITIN Routine 04/01/2025 11:36 AM EDT Transaminitis CANCELLED CHEMISTRY Routine 02/17/2025 1 :54 PM EDT Transaminitis documented in this encounter Results * US Abdomen Complete (04/30/2025) Anatomical Region Laterality Modality Abdomen Ultrasound us Jud Meza MD [place] US PROCEDURES Final Res ult * Iron And Total Iron Binding Capacity (04/01/2025 11:36 AM EDT) Iron 67 45 - 160 mcg/dL [facility] Total Iron Binding Capacity 337 228 - 428 mcg/dL [facility] Percent Iron Saturation 20 15 - 50 % [facility] Unsaturated Iron Binding 270 ug/dL [facility] Blood Venous blood specimen / Unknown 04/01/2025 11:36 AM EDT 04/01/2025 2:07 PM EDT us Jud Meza MD LAB BLOOD ORDERABLES Final Result Performing Organization Address [facility] Co de Phone Number [facility] [address] [place] [phone] * Ferritin (04/01/2025 11:36 AM EDT) Ferritin 92 20 - 250 ng/mL [facility] Blood Venous blood specimen / Unknown 04/01/2025 11:36 AM EDT 04/01/2025 2:07 PM EDT us Jud Meza MD LAB BLOOD ORDERABLES Final Result Performing Organization Address [facility] Number [facility] [address] [place] [phone] * (ABNORMAL) Immunoglobulins Panel, Serum (04/01/2025 11:36 AM EDT) Pathologist [facility] IMMUNOGLOBULIN G 767 600 - 1540 mg/dL [facility] IMMUNOGLOBULIN A 463(A) 70 - 320 mg/dL [facility] Immunoglobulin M 11(A) 50 - 300 mg/dL [facility] Comment:Verified by repeat a nalysis.THIS TEST WAS PERFORMED AT:[facility] [address] [id number] DAVIS MD Blood Venous blood specimen / Unknown 04/01/2025 11:36 AM EDT 04/01/2025 2:07 PM EDT us Jud Meza MD LAB BLOOD ORDERABLES Final Result Performing Organization Address [facility] de Phone Number [facility] [address] [place] [phone] * Prothrombin Time-INR (04/01/2025 11:36 AM EDT) Prothrombin Time 11.6 10.9 - 12.4 SEC [facility] INTERNATIONAL NORM RATIO 1.0 0.9 - 1.1 [facility] Comment:INTERNATIONAL NORMAL IZED RATIO (INR) REFERENCE RANGES Reference RangeFor patients not on anticoagulant therapy: 0.9 - 1.1INR ranges for oral anticoagulanttherapy:For prevention and treatment of venous thrombosis and pulmonary embolism: 2.0 - 3.0For acute myocardial infarction with aspirin therapy: 2.0 - 3.0For acute myocardial infarction without aspirin therapy: 3.0 - 4.0For patients with mechanical prosthetic heart valves: 2.5 - 3.5 Blood Venous blood specimen / Unknown 04/01/2025 11:36 AM EDT 04/01/2025 2:07 PM EDT us Jud Meza MD LAB BLOOD ORDERABLES Final Result Performing Organization Address [facility] Co de Phone Number [facility] [address] [place] [phone] * Cancelled Chemistry (02/17/2025 1:54 PM EDT) Cancelled Chemistry SEE NOTE [facility] Comment:THE FOLLOWING TESTS WERE CANCELLED: MicroalbuminREASON: No specimen received 02/17/2025 1:54 PM EDT 02/19/2025 7:42 AM EDT us Jud Meza MD HISTORICAL/NON ORDERABLE LA BS Final Result Performing Organization Address [facility] Co de Phone Number [facility] [address] [place] [phone] documented in this encounter Visit Diagnoses Diagnosis Transaminitis- Primary Nonspecific elevation of levels of transaminase or lactic acid dehydrogenase (LDH) Primary osteoarthritis, other specified site documented in this encounter Additional Health Concerns Assessment Noted Time PHQ-9 Depression Total Score: 9 01/03/20 25 3:46 PM EDT documented as of this encounter Care Teams Certified Nurse Operating Room Relationship Specialty Start Date End Date Jud Meza MD [address] [place] [address] PCP - General Internal Medicine 12/16/11 Emilia Reyez, Harrison [address] [place] [address] Pharmacist Internal Medicine 02/11/25 documented as of this encounter
--- OUTSIDE RECORDS SUMMARY | 2025-06-13 15:10 | XMS_ITS | Encounter Summary ---
Author Organization [facility] [facility] Address [address] [place] [address] 7 [place] [address] Care Team Providers Care Truss Driver Helper Name Role Phone Jud Meza MD Primary Care Provider [phone]- [phone] Emilia Reyez PharmD Unavailable [phone] Encounter Details Date Type Department Care Team (Latest Contact Info) Description 04/26/2019 Abstract [facility] CONVERSIONS Dental, Provider, DDS Social History [...] [facility] [address] [place] [address] Emilia Reyez, PharmD [address] [place] [address] 08/06/2025 3:15 PM EDT Clinical Support [facility] [address] [place] [address] Danyelle Juares, RN 505 [place] [address] documented as of this encounter Visit Diagnoses Not on filedocumented in this encounter Care Teams Truss Driver Helper Relationship Specialty Start Date End Date Jud Meza MD [address] [place] [address] PCP - General Internal Medicine 12/16/11 Emliia Reyez PharmD [address] [place] [address] Pharmacist Internal Medicine 02/11/25 documented as of this encounter
--- OUTSIDE RECORDS SUMMARY | 2025-06-13 15:10 | XMS_ITS | Encounter Summary ---
Author Organization [employer] Address 75 [facility] 7 [place] [address] Care Team Providers Care Staff Nurse Icu Resource Team Name Role Phone Jud Meza MD Primary Care Provider [phone]- [phone] Emilia Reyez PharmD Unavailable [phone] Encounter Details Date Type Department Care Team ([facility] Contact Info) Description 10/12/2023 Orders Only [facility]S [address] [place], [place] [phone] Jud Meza MD 505 [place] [address] Chronic midline low back pain, unspecified whether [...] 3:00 PM EDT Medication Management [facility] [address] [place] [address] Emilia Reyez PharmD 230 [place] [address] 08/06/2025 3:15 PM EDT Clinical Support [facility] [address] [place] [address] Danyelle Juares, RN [address] [place], [place] documented as of this encounter Visit Diagnoses Diagnosis Chronic midline low back pain, unspecified whether sciatica present- Primary documented in this encounter Care Teams Staff Nurse Icu Resource Team Relationship Specialty Start Date End Date Jud Meza MD 505 [place] [address] PCP - General Internal Medicine 12/16/11 Emilia Reyez PharmD 230 [place] [address] Pharmacist Internal Medicine 02/11/25 documented as of this encounter
--- OUTSIDE RECORDS SUMMARY | 2025-06-13 15:10 | XMS_ITS | Encounter Summary ---
Author Organization [employer] Address 75 [facility] 7t [place] [address] Care Team Providers Care Fraud Investigator Name Role Phone Jud Meza MD Primary Care Provider [phone]- [phone] Emilia Reyez PharmD Unavailable [phone] Reason for Visit * Reason Onset Date Comments Med Refill 09/06/2023 Encounter Details Date Type Department Care Team ([facility] st Contact Info) Description 09/06/2023 Telephone [facility] 230 [place] [address] Jud Meza MD 505 [place], [place] [phone] Med Refill Social History Tobacco Use Types [...] Description 07/22/2025 3:00 PM EDT Medication Management [facility] MED [facility] PED[facility] [address] [place] [address] Emilia Reyez PharmD 230 [place] [address] 08/06/2025 3:15 PM EDT Clinical Support [facility] [address] [place] [address] Danyelle Juares, LALO 505 [place] [address] documented as of this encounter Visit Diagnoses Not on filedocumented in this encounter Care Teams Fraud Investigator Relationship Specialty Start Date End Date Jud Meza MD 505 [place] [address] PCP - General Internal Medicine 12/16/11 Emilia Reyez PharmD [address] [place] [address] Pharmacist Internal Medicine 02/11/25 documented as of this encounter
--- OUTSIDE RECORDS SUMMARY | 2025-06-13 15:10 | XMS_ITS | Encounter Summary ---
Author Organization [email or web address] Address [address] [place] [address] Care Team Providers Care Lining Stamper Name Role Phone Jud Meza MD Primary Care Provider [phone]- [phone] Emilia Reyez PharmD Unavailable [phone] Reason for Referral * Consultation (Routine) - Pending Review Specialty Diagnoses / Procedures Referred By Reuben t Referred To Contact Pharmacy Diagnoses Diabetes mellitus due to underlying condition with hyperglycemia, without long-term current use of insulin (CMS/HCC) Jud Meza MD [address] [place] [address] Phone: tel: fax: Referral ID Status Reason Start Date Expiration Date Visits Requested Visits Authorized [id number] Pending Review Consult and Treat 01/21/2025 01/21/2026 6 6 Encounter Details Date Type Department Care Team (Late st Contact Info) Description 01/21/2025 Orders Only [facility] MED [facility] PEDS [address] [place] [address] Jud Meza MD [address] [place] [address] Diabetes mellitus due to underlying condition with [...] Description 07/22/2025 3:00 PM EDT Medication Management [facility] [address] [place] [address] Emilia Reyez, AmenaD [address] [facility] [address] 08/06/2025 3:15 PM EDT Clinical Support [facility] [address] [place] [address] Danyelle Juares, RN 505 [place] [address] Scheduled Referrals Name Type Priority Associated Diagnoses Orde r Schedule Referral to Pharmacy CDTM Outpatient Referral Routine Diabetes mellitus due to underlying condition with hyperglycemia, without long-term current use of insulin ([facility]) Ordered: 01/21/2025 documented as of this encounter Visit Diagnoses Diagnosis Diabetes mellitus due to underlying condition with hyperglycemia, without long- term current use of insulin (CMS/[facility])- Primary documented in this encounter Additional Health Concerns Assessment Noted Time PHQ-9 Depression Total Score: 9 01/03/20 25 3:46 PM EDT documented as of this encounter Care Teams Lining Stamper Relationship Specialty Start Date End Date Jud Meza MD [address] [place] [address] PCP - General Internal Medicine 12/16/11 Emilia Reyez PharmD [address] [place] [address] Pharmacist Internal Medicine 02/11/25 documented as of this encounter
--- OUTSIDE RECORDS SUMMARY | 2025-06-13 15:10 | XMS_ITS | Encounter Summary ---
Author Organization [employer] Address [address] [place] [address] [address] [place] [address] Care Team Providers Care Bag Sewer Name Role Phone Jud Meza MD Primary Care Provider [phone] Emilia Reyez PharmD Unavailable [phone] Reason for Referral * Neurology (Routine) - Closed Specialty Diagnoses / Procedures Referred By Reuben regan Referred To Contact Diagnoses Left foot drop Procedures Nerve conduction test Jud Meza MD [address] [place] [address] Phone: tel: fax: [address] Phone: tel: fax: Referral ID Status Reason Start Date Expiration Date Visits Re quested Visits Authorized [id number] Closed 10/18/2024 10/18/2025 1 1 Encounter Details Date Type Department Care Team (Late st Contact Info) Description 10/18/2024 Orders Only [facility] MED [facility] PEDS [address] [place] [address] Jud Meza MD 505 [place] [address] Left foot drop (Primary Dx) Social History [...] Upcoming Encounters Date Type Department Care Team ([facility] st Contact Info) Description 07/22/2025 3:00 PM EDT Medication Management [facility] [address] [place] [address] Emilia Reyez, PharmD 230 [place] [address] 08/06/2025 3:15 PM EDT Clinical Support [facility] [address] [place] [address] Danyelle Juares, LALO 505 [place] [address] Scheduled Orders Name Type Priority Associated Diagnoses Orde r Schedule Nerve conduction test Neurology Routine Left foot drop Expected: 10/18/2024 (Approximate), Expires: 10/18/2025 documented as of this encounter Visit Diagnoses Diagnosis Left foot drop- Primary Other acquired deformity of ankle and foot documented in this encounter Care Teams Bag Sewer Relationship Specialty Start Date End Date Jud Meza MD 505 [place] [address] PCP - General Internal Medicine 12/16/11 Emilia Reyez PharmD 230 [place] [address] Pharmacist Internal Medicine 02/11/25 documented as of this encounter
--- OUTSIDE RECORDS SUMMARY | 2025-06-13 15:10 | XMS_ITS | Encounter Summary ---
Author Organization [employer] Address [address] [place] [address] Care Team Providers Care Reinsurance Accountant Name Role Phone Jdu Meza MD Primary Care Provider [phone] Emilia Reyez PharmD Unavailable [phone] Reason for Visit * Reason Onset Date Comments Med Refill 09/27/2022 Encounter Details Date Type Department Care Team (Late st Contact Info) Description 09/27/2022 Telephone [facility] 230 [place] [address] Jud Meza MD [address] [place] [address] Med Refill Social History Tobacco Use Types [...] on medication percocet 5mg please send to [facility] * Telephone Encounter - Torito Dennys - 09/27/2022 10:16 AM EST Tc from requesting to r/s appt on 09/28/22 televisit ( r/s from 09/14/2022, LR. (BS Log) documented in this encounter Plan of Treatment Upcoming Encounters Date Type Department Care Team ([facility] st Contact Info) Description 07/22/2025 3:00 PM EDT Medication Management [facility] MED & PEDS [address] [place] [address] Emilia Reyez PharmD 230 [place] [address] 08/06/2025 3:15 PM EDT Clinical Support [facility] [address] [place] [address] Danyelle Juares, LALO [address] [place] [address] documented as of this encounter Visit Diagnoses Not on filedocumented in this encounter Care Teams Reinsurance Accountant Relationship Specialty Start Date End Date Jud Meza MD [address] [place] [address] PCP - General Internal Medicine 12/16/11 Emilia Reyez PharmD 230 [place] [address] Pharmacist Internal Medicine 02/11/25 documented as of this encounter
--- OUTSIDE RECORDS SUMMARY | 2025-06-13 15:10 | XMS_ITS | Encounter Summary ---
Author Organization [employer] Address [address] [place] [address] [address], [place] [address] Care Team Providers Care Supervisor Alteration Workroom Name Role Phone Jud Meza MD Primary Care Provider Emilia Reyez PharmD Unavailable [phone] Encounter Details Date Type Department Care Team (Late Contact Info) Description 07/10/2023 Orders Only [facility] [address] [place] [address] Jud Meza MD 505 [place] [address] Chronic midline low back pain, unspecified whether [...] Description 07/22/2025 3:00 PM EDT Medication Management [facility] [address] [place], [place] [phone] Emilia Reyez, PharmD 230 [place] [address] 08/06/2025 3:15 PM EDT Clinical Support [facility] MED & PEDS [address] [place], [place] [phone] Danyelle Juares, LALO 505 [place], [place] [phone] documented as of this encounter Visit Diagnoses Diagnosis Chronic midline low back pain, unspecified whether sciatica present- Primary documented in this encounter Care Teams Supervisor Alteration Workroom Relationship Specialty Start Date End Date Jud Meza MD [address] [place], [place] [phone] PCP - General Internal Medicine 12/16/11 Emilia Reyez PharmD [address] [place] [address] Pharmacist Internal Medicine 02/11/25 documented as of this encounter
--- OUTSIDE RECORDS SUMMARY | 2025-06-13 15:10 | XMS_ITS | Clinical Summary ---
Author Organization [facility] Address [address] [place] [address] Phone Care Team Providers Care Manager Integration Name Role Phone Jud Meza MD Primary Care Provider [phone] Allergies Active Allergy Reactions Criticality Noted Date Comments Prednisone 10/29/2019 Encounters Date Type Department Care Team Description 04/15/2025 11:24 PM EDT - 04/16/2025 1:30 AM EDT Emergency [facility] Emergency [address] [place] [address] Yoseph Tang MD Cellulitis of other specified site (Primary Dx); Localized edema Discharge Disposition: Home or Self Care from Last 3 Months Social History Tobacco Use Types Packs/Day Years Used Date Smoking Tobacco: Never Smokeless Tobacco: Never Tobacco Cessation:Counseling Given: Not Answered Sex and Gender Information Value Date Recorded Sex Assigned at Not on file Legal Sex Male 12:20 AM EST Gender Identity Not on file Sexual Orientation Not on file Obstetrics History Last Filed Vital Signs Vital Sign Reading Time Taken Comments Blood Pressure 138/74 04/15/2025 8:59 PM EDT Pulse 88 04/15/2025 8:59 PM EDT Temperature 36.6 C (97.9 F) 04/15/2025 8:59 PM EDT Respiratory Rate 18 04/15/2025 8:59 PM EDT Oxygen Saturation 98% 04/15/2025 8:59 PM EDT Inhaled Oxygen Concentration - - Weight 79.4 kg (175 lb) 04/15/2025 4:01 PM EDT Height 188 cm (6' 2 ) 04/15/2025 4:01 PM EDT Body Mass Index 22.47 04/15/2025 4:01 PM EDT Plan of Treatment Health Maintenance Due Date Last Done Comments Diabetes: Annual Foot Exam 1971 Diabetes: Annual Retina Eye Exam 1971 Pneumococcal Vaccine: 50+ Years (1 of 1 - PCV) 2011 Zoster Vaccines (1 of 2) 2011 Colorectal Cancer Screening: Colonoscopy 06/10/2024 HIV Screening 06/10/2024 Hepatitis C Screening 06/10/2024 Medicare Annual Wellness Visit 06/10/2024 Social Influencers of Health Screening 06/10/2024 COVID-19 Vaccine (3 - 2023-2 5 season) 2024 04/30/2021, 04/06/2021 Depression Screening 10/16/2024 Diabetes: Annual Urine Albumin-Creatinine Ratio (uACR) 11/02/2024 Influenza Vaccine (#1) 2025 09/21/2016 Diabetes: Blood Sugar Contro l Test (HGBA1C) 10/16/2025 04/15/2025, 05/14/2024 DTaP,Tdap,and Td Vaccines (2 - Td or Tdap) 01/27/2026 01/28/2016 Diabetes: Annual GFR (Glomerular Filtration Rate) 04/15/2026 04/15/2025, 02/17/2025, 11/02/2024 Hypertension/CHF/CAD Annual BMP Blood Test 04/15/2026 04/15/2025, 02/17/2025, 11/02/2024 Cholesterol Screening (Lipid Panel) 02/17/2030 02/17/2025, 07/01/2022 RSV Immunization Adult Patients (1 - [...] Procedure Name Priority Date/Time Associated Diagnosis Comments VAS US DUPLEX LOWER EXT VENOUS LEFT STAT 04/15/2025 5:33 PM EDT Localized edema CBC WITH AUTO DIFFERENTIAL STAT 04/15/2025 5:15 PM EDT BASIC METABOLIC PANEL STAT 04/15/2025 5:15 PM EDT CBC AND DIFFERENTIAL STAT 04/15/2025 5:15 PM EDT from Last 3 Months Results * Vascular US Duplex Lower Extremity Venous Left (04/15/2025 5:33 PM EDT) Anatomical Region Laterality Modality Vascular, Abdomen Ultrasound 04/15/2025 5:43 PM EDT Impressions 04/15/2025 5:43 PM EDT Impression: 1. Left lower extremity venous duplex ultrasound negative for DVT. This document has been electronically signed by: Zack Painter MD on 04/15/2025 17:43:38 Narrative 04/15/2025 5:43 PM EDT INDICATION: edema Left lower extremity venous duplex ultrasound. Comparison: None Technique: Real time sonographic imaging, including color-flow imaging and spectral analysis, was performed by the etl application developer. Multiple customer loyalty representative static images were saved for review. Findings: The deep venous system is fully compressible from common femoral through the proximal leg veins. There is spontaneous and phasic flow, and augmentation. Color Doppler and spectral tracings are unremarkable. No popliteal fossa cyst. Procedure Note Zack Painter MD - 04/15/2025 INDICATION: edema Left lower extremity venous duplex ultrasound. Comparison: None Technique: Real time sonographic imaging, including color-flow imagingand spectral analysis, was performed by the etl application developer. Multiple customer loyalty representative static images were saved for review. Findings: The deep venous system is fully compressible from common femoral through the proximal leg veins. There is spontaneous and phasic flow, and augmentation. Color Doppler and spectral tracings are unremarkable. No popliteal fossa cyst. IMPRESSION: Impression: 1. Left lower extremity venous duplex ultrasound negative for DVT. This document has been electronically signed by: Zack Painter MD on 04/15/2025 17:43:38 Popeye Ciarra Campbell MD CV VASCULAR PROCEDURES Final Re sult * CBC auto differential (04/15/2025 5:15 PM EDT) WBC 7.4 4.8 - 10.8 K/mcL LAB HEMETOLOGY METHOD 04/15/2025 5:[address] [facility] RBC 4.90 4.50 - 5.50 M/mcL LAB HEMETOLOGY METHOD 04/15/2025 5:[address] [facility] Hemoglobin 14.1 13.5 - 17.5 g/dL LAB HEMETOLOGY METHOD 04/15/2025 5:[address] [facility] Hematocrit 43.5 42.0 - 54.0 % LAB HEMETOLOGY METHOD 04/15/2025 5:[address] [facility] MCV 89.1 79.0 - 98.0 FL LAB HEMETOLOGY METHOD 04/15/2025 5:[address] [facility] MCH 28.9 27.0 - 32.0 pcg LAB HEMETOLOGY METHOD 04/15/2025 5:[address] [facility] MCHC 32.4 32.0 - 37.0 g/dL LAB HEMETOLOGY METHOD 04/15/2025 5:[address] [facility] RDW 13.8 11.0 - 15.0 % LAB HEMETOLOGY METHOD 04/15/2025 5:[address] [facility] Platelets 262 130 - 400 K/mcL LAB HEMETOLOGY METHOD 04/15/2025 5:[address] [facility] MPV 10.0 7.0 - 11.0 FL LAB HEMETOLOGY METHOD 04/15/2025 5:[address] [facility] NRBC 0.0 <1.0 % LAB HEMETOLOGY METHOD 04/15/2025 5:[address] [facility] NRBC Absolute 0.00 <0.10 K/mcL LAB HEMETOLOGY METHOD 04/15/2025 5:[address] [facility] Neutrophils Relative 58.8 % LAB HEMETOLOGY METHOD 04/15/2025 5:[address] [facility] Lymphocytes Relative 31.0 % [facility] Monocytes Relative 6.9 % LAB HEMETOLOGY METHOD 04/15/2025 5:[address] [facility] Eosinophils Relative 2.3 % LAB [facility]OLOGY [facility] Basophils Relative 0.7 % LAB HEMETOLOGY METHOD [facility] Immature Granulocytes Relative 0.3 % LAB HEMETOLOGY METHOD [facility] Neutrophils Absolute 4.35 1.50 - 7.00 K/mcL LAB HEMETOLOGY METHOD 04/15/2025 5:[address] [facility] Lymphocytes Absolute 2.29 1.00 - 5.00 K/mcL LAB HEMETOLOGY METHOD 04/15/2025 5:[address] [facility] Monocytes Absolute 0.51 0.20 - 1.00 K/mcL LAB HEMETOLOGY METHOD [facility] Eosinophils Absolute 0.17 0.00 - 0.50 K/mcL LAB HEMETOLOGY METHOD 04/15/2025 5:[address] [facility] Basophils Absolute 0.05 0.00 - 0.20 K/[facility] LAB HEMETOLOGY METHOD 04/15/2025 5:[address] [facility] Immature Granulocytes Absolute 0.02 0.00 - 0.03 K/[facility] 04/15/2025 5:[address] [facility] Blood Venous blood specimen / Unknown Venipuncture / Unknown 04/15/2025 5:15 PM EDT 04/15/2025 5:28 PM EDT Popeye Ciarra Campbell MD LAB BLOOD ORDERABLES Final Resu lt [facility] [address] [place] [address], * (ABNORMAL) Basic metabolic panel (04/15/2025 5:15 PM EDT) Sodium 139 133 - 145 mmol/L LAB CHEMISTRY METHOD 04/15/2025 6:16 PM [facility] Potassium 3.8 3.5 - 5.5 mmol/L LAB CHEMISTRY METHOD 04/15/2025 6:16 PM [facility] Chloride 103 96 - 110 mmol/L LAB CHEMISTRY METHOD 04/15/2025 6:16 PM [facility] CO2 29 21 - 32 mmol/L LAB CHEMISTRY METHOD 04/15/2025 6:16 PM [facility] Anion Gap 7 3 - 11 LAB CHEMISTRY METHOD 04/15/2025 6:16 PM [facility] Glucose 236(H) 70 - 100 mg/dL LAB CHEMISTRY METHOD 04/15/2025 6:16 PM [facility] BUN 16 5 - 25 mg/dL LAB CHEMISTRY METHOD 04/15/2025 6:[address] [facility] Creatinine 0.98 0.70 - 1.30 mg/dL LAB CHEMISTRY METHOD 04/15/2025 6:[address] [facility] eGFR 86 >=60 mL/min/1. 73m2 LAB CHEMISTRY METHOD 04/15/2025 6:[address] [facility] Comment:Calculation based on the Chronic Kidney Disease Epidemiology Collaboration (CKD-EPI) equation refit without adjustment for race. BUN/Creatinine Ratio 16.3 LAB CHEMISTRY METHOD 04/15/2025 6:[address] [facility] Calcium 8.7 8.5 - 10.5 mg/dL LAB CHEMISTRY METHOD 04/15/2025 6:[address] [facility] Blood Venous blood specimen / Unknown Venipuncture / Unknown 04/15/2025 5:15 PM EDT 04/15/2025 5:28 PM EDT Popeye Campbell MD LAB BLOOD ORDERABLES Final Resu lt [facility] [address] [place] [address], from Last 3 Months Insurance [address] [place] [address] MEDICARE MEDICAID - [place] Care Teams Manager Integration Relationship Specialty Start Date End Date Jud Meza MD [address] [place] [address] PCP - General Internal Medicine 04/15/19
--- OUTSIDE RECORDS SUMMARY | 2025-06-13 15:10 | XMS_ITS | Encounter Summary ---
Author Organization [employer] Address [address] [facility] 7 [place] [address] Care Team Providers Care Elementary Tutor Name Role Phone Jud Meza MD Primary Care Provider [phone] Emilia Reyez PharmD Unavailable [phone] Reason for Visit * Reason Onset Date Comments Appointment Request 01/29/2025 Encounter Details Date Type Department Care Team ([facility] st Contact Info) Description 01/29/2025 Telephone [facility] [address] [place] [address] Jud Meza MD [address] [place] [address] Appointment Request Social History Tobacco Use Types [...] Upcoming Encounters Date Type Department Care Team ([facility] st Contact Info) Description 07/22/2025 3:00 PM EDT Medication Management [facility] MED & PEDS [address] [place] [address] Emilia Reyez, PharmD [address] [place] [address] 08/06/2025 3:15 PM EDT Clinical Support [facility] MED [facility] PEDS [address] [place] [address] Danyelle Juares, LALO 505 [place] [address] documented as of this encounter Visit Diagnoses Not on filedocumented in this encounter Additional Health Concerns Assessment Noted Time PHQ-9 Depression Total Score: 9 01/03/20 25 3:46 PM EDT documented as of this encounter Care Teams Elementary Tutor Relationship Specialty Start Date End Date Jud Meza MD [address] [place] [address] PCP - General Internal Medicine 12/16/11 Emilia Reyez PharmD [address] [place] [address] Pharmacist Internal Medicine 02/11/25 documented as of this encounter
--- OUTSIDE RECORDS SUMMARY | 2025-06-13 15:10 | XMS_ITS | Encounter Summary ---
Author Organization [employer] Address [address] [facility] 7 [place] [address] Care Team Providers Care Tactical Air Control Party Manager Name Role Phone Jud Meza MD Primary Care Provider [phone] Emilia Reyez PharmD Unavailable [phone] Reason for Visit * Reason Onset Date Comments Med Refill 02/18/2025 Encounter Details Date Type Department Care Team (Late st Contact Info) Description 02/18/2025 Telephone [facility] MEDICINE [address] [place] [address] Jud Meza MD 505 [place] [address] Med Refill Social History Tobacco Use Types [...] 5-325 MG tablet To be sent to: [facility]/pharmacy #[id number] AT CORNER OF [facility] documented in this encounter Plan of Treatment Upcoming Encounters Date Type Department Care Team (Late st Contact Info) Description 07/22/2025 3:00 PM EDT Medication Management [facility] MED & PEDS 505 [place] [address] Emilia Reyez, PharmD 230 [place] [address] 08/06/2025 3:15 PM EDT Clinical Support [facility] MED & PEDS 505 [place] [address] Danyelle Juares, RN 505 [place] [address] documented as of this encounter Visit Diagnoses Not on filedocumented in this encounter Additional Health Concerns Assessment Noted Time PHQ-9 Depression Total Score: 9 01/03/20 25 3:46 PM EDT documented as of this encounter Care Teams Tactical Air Control Party Manager Relationship Specialty Start Date End Date Jud Meza MD 505 [place] [address] PCP - General Internal Medicine 12/16/11 Emilia Reyez PharmD [address] [place] [address] Pharmacist Internal Medicine 02/11/25 documented as of this encounter
--- OUTSIDE RECORDS SUMMARY | 2025-06-13 15:10 | XMS_ITS | Encounter Summary ---
Author Organization [employer] Address [address] [facility] 7 [place] [address] Care Team Providers Care Family Law Mediator Name Role Phone Jud Meza MD Primary Care Provider [phone] Emilia Reyez PharmD Unavailable [phone] Reason for Visit * Reason Onset Date Comments Med Refill 01/21/2025 Encounter Details Date Type Department Care Team (Late st Contact Info) Description 01/21/2025 Telephone [facility] MEDICINE 230 [place] [address] Jud Meza MD 505 [place] [address] Med Refill Social History Tobacco Use Types [...] 5-325 MG tablet To be sent to: [facility]/pharmacy #[id number] [place] [address] [address] CORNER OF [facility] documented in this encounter Plan of Treatment Upcoming Encounters Date Type Department Care Team ([facility] st Contact Info) Description 07/22/2025 3:00 PM EDT Medication Management [facility] MED & PEDS 505 [place] [address] Emilia Reyez, PharmD 230 [place] [address] 08/06/2025 3:15 PM EDT Clinical Support [facility] MED & PEDS 505 [place] [address] Danyelle Juares, RN [address] [place] [address] documented as of this encounter Visit Diagnoses Not on filedocumented in this encounter Additional Health Concerns Assessment Noted Time PHQ-9 Depression Total Score: 9 01/03/20 25 3:46 PM EDT documented as of this encounter Care Teams Family Law Mediator Relationship Specialty Start Date End Date Jud Meza MD 505 [place] [address] PCP - General Internal Medicine 12/16/11 Emilia Reyez PharmD [address] [place] [address] Pharmacist Internal Medicine 02/11/25 documented as of this encounter
--- OUTSIDE RECORDS SUMMARY | 2025-06-13 15:10 | XMS_ITS ---
Author Name [facility] Organization Unknown Encounters Encounter Type Encounter Reason Primary Diagnosis Location Date Ambulatory [facility] [place] 03/08/2024
--- OUTSIDE RECORDS SUMMARY | 2025-06-13 15:10 | XMS_ITS | Clinical Summary ---
Author Organization [facility] Address [address] [facility] [address] [place] [address] Phone Care Team Providers Care Dairy Farm Worker Name Role Phone Jud Meza MD Primary Care Pr ovider Allergies No known active allergies Medications allopurinol (ZYLOPRIM) 300 MG tablet Take 300 mg by mouth 2 (two) times a day. 02/05/2022 Active cloNIDine HCL (CATAPRES) 0.1 MG tablet Take 0.1 mg by mouth 2 (two) times a day. 03/29/2022 Active fenofibrate (TRICOR) 48 MG tablet 04/07/2022 Active FLUoxetine (PROZAC) 20 MG capsule Take 60 mg by mouth daily. 03/29/2022 Active gabapentin (NEURONTIN) 800 MG tablet 01/29/2022 Active omeprazole (PRILOSEC) 20 MG capsule Take 20 mg by mouth 2 (two) times a day. 03/06/2022 Active simvastatin (ZOCOR) 20 MG tablet 04/10/2022 Active JANUVIA 100 mg tablet Take 100 mg by mouth daily. 03/16/2022 Active triamterene-hydr oCHLOROthiazide (MAXZIDE-25) 37.5-25 mg per tablet Take 1 tablet by mouth daily. 03/18/2022 Active Active Problems Problem Noted Date Diagnosed Date Achilles tendinitis of right lower extremity Social History Tobacco Use Types Packs/Day Years Used Date Smoking Tobacco: Never Smokeless Tobacco: Never Education Answer Date Recorded Are you interested in more education? Not on winston e 02/11/2023 Are you concerned about learning? Not on file 02/11/2023 No 02/11/2023 No 02/11/2023 Digital Access Answer Date Recorded No 03/14/2023 No 03/14/2023 Reliable internet access at home? Not on file 03/14/2023 Device with a working camera? Not on file Sex and Gender Information Value Date Recorded Sex Assigned at Not on file Legal Sex Male 2:10 PM EDT Gender Identity Not on file Sexual Orientation Not on file Last Filed Vital Signs Vital Sign Reading Time Taken Comments Blood Pressure - - Pulse - - Temperature - - Respiratory Rate - - Oxygen Saturation - - Inhaled Oxygen Concentration - - Weight 122 kg (269 lb) 04/11/2022 4:04 PM EDT Height 188 cm (6' 2 ) 04/11/2022 4:04 PM EDT Body Mass Index 34.54 04/11/2022 4:04 PM EDT Plan of Treatment Health Maintenance Due Date Last Done Comments Adult Td,Tdap Booster 1961 CREATININE LEVEL 1961 LIPID PANEL 1961 POTASSIUM LEVEL 1961 DEPRESSION SCREENING 1973 HEPATITIS C SCREENING 1979 HIV ONE-TIME SCREENING (18-6 5 YEARS) 1979 COLOGUARD 2006 COLONOSCOPY 2006 COLORECTAL CANCER SCREENING 2006 FIT TEST 2006 FOBT 2006 SIGMOIDOSCOPY 2006 VIRTUAL COLONOSCOPY 2006 PNEUMOCOCCAL VACCINES (50+ y ears) (1 of 1 - PCV) 2011 ZOSTER VACCINES (1 of 2) 2011 COVID-19 VACCINE ( - 2023-2 5 season) 2024 INFLUENZA VACCINE (#1) 2025 RSV VACCINE (1 - 1-dose 75+ series) 01/07/2036 SMOKING STATUS SCREENING (On ce After 26 Yrs) Completed 04/14/2022 HEPATITIS A VACCINES Aged Out No long er eligible based on patient's age to complete this topic HIB VACCINES Aged Out No longer eligi ble based on patient's age to complete this topic MENINGOCOCCAL VACCINES (ACWY) Aged Out No longer eligible based on patient's age to complete this topic MENINGOCOCCAL VACCINES (B) Aged Out N o longer eligible based on patient's age to complete this topic Medical Devices Not on file Insurance [facility]IC[facility] PART A & [facility] [place] [facility] & B [facility] MEDIC[facility] PART A & [place] MED[place] PART A & B [facility] & [place] MEDICARE PART A & [place] [address] Care Teams Dairy Farm Worker Relationship Specialty Start Date End Date Jud Meza MD [address] [place] [address] [place] [address] PCP - General Internal Medicine 6/27/22 Additional Source Comments The information contained in this document represents components of the legal health record. It is not the complete legal health record.[facility]
--- OUTSIDE RECORDS SUMMARY | 2025-06-13 15:10 | XMS_ITS | Encounter Summary ---
Author Organization [employer] Address 75 [facility] 7 [place] [address] Care Team Providers Care Inspector Heating And Refrigeration Name Role Phone Jud Meza MD Primary Care Provider [phone] Emilia Reyez PharmD Unavailable [phone] Encounter Details Date Type Department Care Team ([facility] st Contact Info) Description 04/14/2025 Orders Only [facility] MED & PEDS [address] [place], [place] [phone] Jud Meza MD 505 [place] [address] Social History Tobacco Use Types Packs/Day Years [...] [facility] MED & PEDS 505 [place] [address] Emilia Reyez PharmD 230 [place] [address] 08/06/2025 3:15 PM EDT Clinical Support [facility] MED & PEDS 505 [place] [address] Danyelle Juares RN 505 [place] [address] documented as of this encounter Visit Diagnoses Not on filedocumented in this encounter Additional Health Concerns Assessment Noted Time PHQ-9 Depression Total Score: 9 01/03/20 25 3:46 PM EDT documented as of this encounter Care Teams Inspector Heating And Refrigeration Relationship Specialty Start Date End Date Jud Meza MD 505 [place] [address] PCP - General Internal Medicine 12/16/11 Emilia Reyez PharmD 230 [place] [address] Pharmacist Internal Medicine 02/11/25 documented as of this encounter
--- OUTSIDE RECORDS SUMMARY | 2025-06-13 15:10 | XMS_ITS | Encounter Summary ---
Author Organization [employer] Address [address] [facility] 7t [place] [address] Care Team Providers Care Bakelite Molder Name Role Phone Jud Meza MD Primary Care Provider [phone] Emilia Reyez PharmD Unavailable [phone] Encounter Details Date Type Department Care Team ([facility] st Contact Info) Description 04/16/2025 Orders Only [facility] CHC MED & PEDS [address] [place] [address] Provider, MD Ruben Social History Tobacco Use Types Packs/Day Years Used Date Smoking Tobacco: Never Smokeless Tobacco: Never Depression Answer Date Recorded Patient Health Questionnaire-9 Score 9 01/02/2025 Patient Health Questionnaire-9 Score 9 01/02/2025 Last PHQ-9: Questionnaire Data Not on file 0 01/02/2025 Housing Stability Answer Date Recorded What is your housing situation today? I have melissacamelia siegel 01/02/[address] you [...] 07/22/2025 3:00 PM EDT Medication Management [facility] MED & PEDS 505 [place] [address] Emilia Reyez, PharmD 230 [place] [address] 08/06/2025 3:15 PM EDT Clinical Support [facility] MED & PEDS 505 [place] [address] Danyelle Juares, RN 505 [place], [place] [phone] documented as of this encounter Procedures Procedure Name Priority Date/Time Associated Diagnosis Comments VASC US LOWER EXTREMITY VENOUS DUPLEX LEFT Routine 04/15/2025 9:05 AM EDT documented in this encounter Results * VASC US LOWER EXTREMITY VENOUS DUPLEX LEFT (04/15/2025 9:05 AM EDT) us Historical Provider CV VASCULAR PROCEDURES Fi nal Result documented in this encounter Visit Diagnoses Not on filedocumented in this encounter Additional Health Concerns Assessment Noted Time PHQ-9 Depression Total Score: 9 01/03/20 25 3:46 PM EDT documented as of this encounter Care Teams Bakelite Molder Relationship Specialty Start Date End Date Jud Meza MD 505 [place] [address] PCP - General Internal Medicine 12/16/11 Emilia Reyez, [place] 230 [place] [address] Pharmacist Internal Medicine 02/11/25 documented as of this encounter
--- OUTSIDE RECORDS SUMMARY | 2025-06-13 15:11 | XMS_ITS | Encounter Summary ---
Author Organization [employer] Address [address] [facility] 7t [place] [address] Care Team Providers Care Dental Hygiene Professor Name Role Phone Jud Meza MD Primary Care Provider [phone]- [phone] Emilia Reyez PharmD Unavailable [phone] Reason for Visit * Reason Onset Date Comments Durable Medical Equipment 07/05/2024 Encounter Details Date Type Department Care Team (Late st Contact Info) Description 07/05/2024 Telephone [facility] MEDICINE 230 [place] [address] Jud Meza MD 505 [place], [place] [phone] Durable Medical Equipment Social History Tobacco Use [...] Upcoming Encounters Date Type Department Care Team ([facility] st Contact Info) Description 07/22/2025 3:00 PM EDT Medication Management [facility] MED & PEDS 505 [place] [address] Emilia Reyez PharmD 230 [place] [address] 08/06/2025 3:15 PM EDT Clinical Support [facility] MED & PEDS 505 [place] [address] Danyelle Juares, LALO 505 [place] [address] documented as of this encounter Visit Diagnoses Not on filedocumented in this encounter Care Teams Dental Hygiene Professor Relationship Specialty Start Date End Date Jud Meza MD 505 [place] [address] PCP - General Internal Medicine 12/16/11 Emilia Reyez, [place] [address] [place] [address] [place] [address] Pharmacist Internal Medicine 02/11/25 documented as of this encounter
--- OUTSIDE RECORDS SUMMARY | 2025-06-13 15:11 | XMS_ITS | Encounter Summary ---
Author Organization [employer] Address [address] [facility] 7 [place] [address] Care Team Providers Care Carpentry Foreman Name Role Phone Jud Meza MD Primary Care Provider [phone] Emilia Reyez PharmD Unavailable [phone] Encounter Details Date Type Department Care Team ([facility] st Contact Info) Description 11/21/[address] [facility] CHC MED & PEDS 505 [place], [place] [phone] Jud Meza MD 505 [place] [address] Neuropathy (Primary Dx) Social History Tobacco Use [...] the past 12 months, has t he [employer], oil or water company threatened to shut [...] 07/22/2025 3:00 PM EDT Medication Management [facility] MED & PEDS [address] [place] [address] Emilia Reyez PharmD 230 [place] [address] 08/06/2025 3:15 PM EDT Clinical Support [facility] MED & PEDS 505 [place] [address] Danyelle Juares, LALO 505 [place] [address] documented as of this encounter Visit Diagnoses Diagnosis Neuropathy- Primary Mononeuritis of unspecified site documented in this encounter Care Teams Carpentry Foreman Relationship Specialty Start Date End Date Jud Meza MD 505 [place] [address] PCP - General Internal Medicine 12/16/11 Emilia Reyez PharmD 230 [place] [address] Pharmacist Internal Medicine 02/11/25 documented as of this encounter
--- OUTSIDE RECORDS SUMMARY | 2025-06-13 15:11 | XMS_ITS | Patient Health Record ---
Author Organization [employer] Address [address] [address] Care Team Providers Care Credit Collections Analyst Name Role Phone Ivan Rollins Primary Care Provider Ismael Berg Unavailable [phone] Reason For Referral No Information Plan Of Treatment No Information Insurance Providers Payer Name Payer Address Payer Phone Subscriber Number Group Number Insured Name Patient Relationship to Insured Coverage Start Date Coverage End Date MEDICARE [address] [place] [id number] [phone] [id number] Tortio Rendon Self - patient is the insured [facility] [address] [place] [address] [id number] Torito Rendon Self - patient is the insured
--- OUTSIDE RECORDS SUMMARY | 2025-06-13 15:11 | XMS_ITS | Clinical Summary ---
Author Organization [facility] Address [address] [place] [address] Care Team Providers Care Ash Handler Name Role Phone Jud Meza MD Primary Care Provider [phone] Social History Tobacco Use Types Packs/Day Years [...] (1 of 2) 2011 Influenza Vaccine (#1) 2025 Pneumococcal Vaccine (1 of 1 - PCV) [...] age to complete this topic Care Teams Ash Handler Relationship Specialty Start Date End Date Jud Meza MD 505 [place] [address] PCP - General Internal Medicine 04/15/19
--- OUTSIDE RECORDS SUMMARY | 2025-06-13 15:11 | XMS_ITS | Encounter Summary ---
Author Organization [employer] Address [address] [facility] 7 [place] [address] Care Team Providers Care Supply Room Clerk Name Role Phone Jud Meza MD Primary Care Provider [phone] Emilia Reyez PharmD Unavailable [phone] Reason for Visit * Reason Onset Date Comments Referral 03/21/2024 Encounter Details Date Type Department Care Team ([facility] st Contact Info) Description 03/21/2024 Telephone [facility] MEDICINE 230 [place] [address] Jud Meza MD 505 [place], [place] [phone] Referral Social History Tobacco Use Types Packs/Day [...] the orthopedic surgery to be sent to [facility] [place], [place] fax # [phone] patient stated has already made a appt for 06/11 @ 2pm documented in this encounter Plan of Treatment Upcoming Encounters Date Type Department Care Team (Late st Contact Info) Description 07/22/2025 3:00 PM EDT Medication Management [facility] MED & PEDS 505 [place] [address] Emilia Reyez PharmD 230 [place] [address] 08/06/2025 3:15 PM EDT Clinical Support [facility] MED & PEDS 505 [place] [address] Danyelle Juares RN 505 [place] [address] documented as of this encounter Visit Diagnoses Not on filedocumented in this encounter Care Teams Supply Room Clerk Relationship Specialty Start Date End Date Jud Meza MD 505 [place] [address] PCP - General Internal Medicine 12/16/11 Emilia Reyez, [place] [address] [place] [address] Pharmacist Internal Medicine 02/11/25 documented as of this encounter
--- OUTSIDE RECORDS SUMMARY | 2025-06-13 15:11 | XMS_ITS | Encounter Summary ---
Author Organization [employer] Address [address] [facility] 7 [place] [address] Care Team Providers Care Outside Plant Supervisor Name Role Phone Jud Meza MD Primary Care Provider [phone] Emilia Reyez PharmD Unavailable [phone] Reason for Visit * Reason Onset Date Comments Med Refill 03/03/2025 Encounter Details Date Type Department Care Team ([facility] st Contact Info) Description 03/03/2025 Telephone [facility] CHC MED & PEDS 505 [place] [address] Jud Meza MD 505 [place] [address] Med Refill Social History Tobacco Use Types [...] encounter Miscellaneous Notes * Telephone Encounter - Tomy Wilson - 03/03/2025 3:46 PM EDT TC from pt requesting medication refill. Medications needing refill : oxyCODONE-acetaminophen (Percocet) 5-325 MG tablet To be sent to: [facility]/pharmacy #[id number] [place] [address] [address] [facility] OF [facility] documented in this encounter Plan of Treatment Upcoming Encounters Date Type Department Care Team (Late st Contact Info) Description 07/22/2025 3:00 PM EDT Medication Management [facility] MED & PEDS 505 [place] [address] Emilia Reyez, PharmD 230 [place] [address] 08/06/2025 3:15 PM EDT Clinical Support [facility] MED & PEDS 505 [place] [address] Danyelle Juares, RN 505 [place] [address] documented as of this encounter Visit Diagnoses Not on filedocumented in this encounter Additional Health Concerns Assessment Noted Time PHQ-9 Depression Total Score: 9 01/03/20 25 3:46 PM EDT documented as of this encounter Care Teams Outside Plant Supervisor Relationship Specialty Start Date End Date Jud Meza MD 505 [place] [address] PCP - General Internal Medicine 12/16/11 Emilia Reyez PharmD [address] [place] [address] Pharmacist Internal Medicine 02/11/25 documented as of this encounter
--- OUTSIDE RECORDS SUMMARY | 2025-06-13 15:11 | XMS_ITS | Encounter Summary ---
Author Organization [employer] Address [address] [facility] 7 [place] [address] Care Team Providers Care Pension Examiner Name Role Phone Jud Meaz MD Primary Care Provider [phone] [phone] Emilia Reyez PharmD Unavailable [phone] Reason for Visit * Reason Comments Med Change Request Encounter Details Date Type Department Care Team ([facility] Contact Info) Description 05/14/2024 Refill [facility] CHC MED & PEDS 505 [place], [place] [phone] Jud Meza MD 505 [place] [address] Diabetes mellitus due to underlying condition with hyperglycemia, without long-term current use of insulin ([facility]) Social History Tobacco Use Types Packs/Day [...] [facility] MED & PEDS [address] [place] [address] Emilia Reyez PharmD 230 [place] [address] 08/06/2025 3:15 PM EDT Clinical Support [facility] MED & PEDS [address] [place] [address] Danyelle Juares, LALO 505 [place], [place] documented as of this encounter Visit Diagnoses Diagnosis Diabetes mellitus due to underlying condition with hyperglycemia, without long- term current use of insulin ([facility]) documented in this encounter Care Teams Pension Examiner Relationship Specialty Start Date End Date Jud Meza MD [address] [place] [address] PCP - General Internal Medicine 12/16/11 Emilia Reyez PharmD [address] [place] [address] Pharmacist Internal Medicine 02/11/25 documented as of this encounter
--- OUTSIDE RECORDS SUMMARY | 2025-06-13 15:11 | XMS_ITS | Encounter Summary ---
Author Organization [employer] Address [address] [facility] 7t [place] [address] Care Team Providers Care Reception Manager Name Role Phone Jud Meza MD Primary Care Provider [phone] Emilia Reyez PharmD Unavailable [phone] Reason for Visit * Reason Onset Date Comments Med Refill 06/11/2024 Encounter Details Date Type Department Care Team (Late st Contact Info) Description 06/11/2024 Telephone [facility] MEDICINE 230 [place] [address] Jud Meza MD [address] [place], [place] [phone] Med Refill Social History Tobacco Use Types [...] 5-325 MG tablet To be sent to: [facility]/pharmacy #[id number] - [place], [place] - [address] [place] documented in this encounter Plan of Treatment Upcoming Encounters Date Type Department Care Team (Late st Contact Info) Description 07/22/2025 3:00 PM EDT Medication Management [facility] MED & PEDS 505 [place] [address] Emilia Reyez PharmD 230 [place] [address] 08/06/2025 3:15 PM EDT Clinical Support [facility] MED & PEDS [address] [place], [place] [phone] Danyelle Juares, LALO 505 [place], [place] documented as of this encounter Visit Diagnoses Not on filedocumented in this encounter Care Teams Reception Manager Relationship Specialty Start Date End Date Jud Meza MD [address] [place] [address] PCP - General Internal Medicine 12/16/11 Emilia Reyez PharmD 230 [place] [address] Pharmacist Internal Medicine 02/11/25 documented as of this encounter
--- OUTSIDE RECORDS SUMMARY | 2025-06-13 15:11 | XMS_ITS | Encounter Summary ---
Author Organization [employer] Address [address] [place] [address] [place] [address] Care Team Providers Care Director Audience Marketing Name Role Phone Jud Meza MD Primary Care Provider [phone] Emilia Reyez PharmD Unavailable [phone] Reason for Visit * Reason Onset Date Comments Med Refill 03/03/2023 Encounter Details Date Type Department Care Team ([facility] st Contact Info) Description 03/03/2023 Telephone [facility] [address] [place], [place] [phone] Jud Meza MD [address] [place] [address] Med Refill Social History Tobacco Use Types [...] AM EDT documented as of this encounter Functional Status * Over the past 2 weeks, how often have you been bothered by any of the following problems? Question Answer Date of Assessment Author Patient Health Questionnaire-2 Score 2 02/14 11:39 AM NIAT Sadia Vargas [place] * Over the past 2 weeks, how often have you been bothered by any of the following problems? Question Answer Date of Assessment Author Little interest or pleasure in doing things Several days 03/06/2023 11:39 AM Sadia Salmeron [place] Feeling down, depressed, or hopeless Several days 03/06/2023 11:39 AM NIAT Sadia Vargas [place] Trouble falling or staying asleep, or sleeping too much Several days 03/06/2023 11:39 AM NIAT Sadia Vargas [place] Feeling tired or having mark le energy Several days 03/06/2023 11:39 AM NIAT Sadia Vargas [place] Poor appetite or overeating Several days 03/06/2023 11 :39 AM NIAT Sadia Vargas [place] Feeling bad about yourself - or that you are a failure or have let yourself or your family down Several days 03/06/2023 11:39 AM NIAT Sadia Vargas [place] Trouble concentrating on things, such as reading the newspaper or watching television Not at all 03/06/2023 11:39 AM NIAT Sadia Vargas MA Thoughts that you would be better off or hurting yourself in some way Several days 03/06/2023 11:39 AM NIAT Sadia Vargas M A documented as of this encounter Miscellaneous Notes [...] [facility] [address] [place], [place] [phone] Emilia Reyez PharmD [address] [place] [address] 08/06/2025 3:15 PM EDT Clinical Support [facility] [address] [place] [address] Danyelle Juares, LALO [address] [place], [place] documented as of this encounter Visit Diagnoses Not on filedocumented in this encounter Care Teams Director Audience Marketing Relationship Specialty Start Date End Date Jud Meza MD [address] [place], [place] PCP - General Internal Medicine 12/16/11 Emilia Reyez, [place] [address] [place] [address] Pharmacist Internal Medicine 02/11/25 documented as of this encounter
--- OUTSIDE RECORDS SUMMARY | 2025-06-13 15:11 | XMS_ITS | Clinical Summary ---
Author Organization [employer] Address [address] [facility] [address] [place] [address] Care Team Providers Care Weapons Electrical Engineering Officer Name Role Phone Jud Meza MD Primary Care Provider [phone] Emilia Reyez PharmD Unavailable [phone] Allergies Active Allergy Reactions Criticality Noted Date [...] delayed-release take 1 tab daily 2020 Active naloxone (Narcan) 4 mg/0.1 mL nasal spray spray 0.1 milliliter by intranasal route in 1 nostril may repeat dose every 2-3 minutes as needed alternating nostrils with each dose 2021 Active Blood Glucose Monitoring Suppl (FreeStyle Lite) [...] for pain 30 tablet 3 2022 Active simvastatin (Zocor) 20 MG tabletIndications:Pure hypercholesterolemia TAKE 1 TABLET BY MOUTH ONCE DAILY IN EVENING 90 tablet 3 2023 Active omeprazole (PriLOSEC) [address] capsule TAKE 1 CAPSULE BY MOUTH TWICE A DAY 180 capsule 3 2023 Active fenofibrate (Tricor) 48 MG tabletIndications:Pure hypercholesterolemia TAKE 1 TABLET BY MOUTH EVERY DAY 90 tablet 3 2023 Active allopurinol (Zyloprim) 300 MG tablet TAKE 1 TABLET BY MOUTH TWICE A DAY 180 tablet 3 2023 Active gabapentin (Neurontin) 800 MG tabletIndications:Dev Ops Engineer miguel right-sided low back pain with bilateral sciatica TAKE 1 TABLET BY MOUTH THREE TIMES A DAY 90 tablet 11 2023 Active b complex vitamins capsuleIndications:Fabian ropathy Take 1 capsule by mouth Once per day. 30 capsule 11 11/21 Active betamethasone, augmented, (Diprolene) 0.05 % ointmentIndications:Ec zema craquele Apply topically 2 times daily. 15 g 2024 Active DULoxetine (Cymbalta) [address] capsuleIndications:Tin [...] DAILY,X30 DAYS NEEDED FOR AGITATION 2024 Active triamterene-hydrochlor othiazide (Maxzide-25) 37.5-25 MG tablet TAKE 1 TABLET BY MOUTH EVERY DAY 90 tablet 3 2024 Active repaglinide (Prandin) 1 MG tablet Take 1 tablet (1 mg) by mouth before breakfast, before lunch, and before evening meal. 2024 Active losartan (Cozaar) 25 MG tabletIndications:Diab etes mellitus due to underlying condition with hyperglycemia, without long-term current use of insulin (CMS/HCC) TAKE 1 TABLET (25 MG) BY MOUTH ONCE PER DAY. 90 tablet 3 2024 Active Dulaglutide (Trulicity) 3 MG/0.5ML solution auto-injectorIndicatio ns:Uncontrolled type 2 diabetes mellitus with hyperglycemia, without long-term current use of insulin (CMS/HCC) Inject 3 mg under the skin 1 (one) time per week. 2 mL 3 2024 Active FreeStyle lancetsIndications:Typ e 2 diabetes mellitus with hyperglycemia (CMS/HCC) USE TO TEST BLOOD SUGAR ONCE A DAY. E11.65 100 each 5 2024 Active FREESTYLE LITE test stripIndications:Type 2 diabetes mellitus with hyperglycemia (CMS/HCC) USE TO TEST BLOOD SUGAR ONCE A DAY 50 strip 5 2024 Active triamcinolone (Kenalog) 0.1 % cream Apply topically if needed in the morning and at bedtime for rash or irritation. Use for up to 1 week 30 g 2024 Active oxyCODONE-acetaminophe n (Percocet) 5-325 MG tabletIndications:Dev Ops Engineer miguel pain syndrome Take 1 tablet by mouth every 8 (eight) hours if needed for severe pain for up to 15 days. Do not start before June 16, 2025. 45 tablet 07/01 Active glucose blood (FREESTYLE LITE) test stripIndications:Type 2 diabetes mellitus with hyperglycemia (CMS/HCC) USE TO TEST BLOOD SUGAR ONCE A DAY 50 strip 5 06/04 Discontinued FreeStyle lancetsIndications:Typ e 2 diabetes mellitus with hyperglycemia (CMS/HCC) USE TO TEST BLOOD SUGAR ONCE A DAY. E11.65 100 each 3 06/04 Discontinued Dulaglutide (Trulicity) 1.5 MG/0.5ML solution auto-injector Inject 1.5 mg under the skin 1 (one) time per week. 2 mL 2 06/04 Discontinued( Dose adjustment) oxyCODONE-acetaminophe n (Percocet) 5-325 MG tabletIndications:Dev Ops Engineer miguel pain syndrome Take 1 tablet by mouth every 8 (eight) hours if needed for severe pain for up to 15 days. 45 tablet 05/30 Discontinued( Reorder (will not trigger notification to Pharmacy)) oxyCODONE-acetaminophe n (Percocet) 5-325 MG tabletIndications:Dev Ops Engineer miguel pain syndrome Take 1 tablet by mouth every 8 (eight) hours if needed for severe pain for up to 15 days. 45 tablet 06/13 Discontinued( Reorder (will not trigger notification to Pharmacy)) oxyCODONE (Roxicodone) 5 MG immediate release tabletIndications:Spon dylosis without myelopathy Take 1 tablet (5 mg) by mouth every 6 (six) hours if needed for severe pain for up to 14 days. 45 tablet 06/13 Discontinued( Therapy completed) Active Problems Problem Noted Date Diagnosed Date [...] EDT): We are going to work on Brians A1C first, which will give him the option of having the bone spur removed if he would like to do that. Backache 07/02/2010 Disorder of skeletal muscle 07/02/2010 Resolved Problems Problem Noted Date Diagnosed Date Resolved Date Pain in limb 07/02/2010 12/26/2022 Encounters Date Type Department Care Team Description 06/13/2025 2:00 PM EDT Office Visit [facility] [address] [place] [address] Rachel Beach FNP Rash (Primary Dx); Chronic pain syndrome 06/13/2025 Travel 06/12/2025 Telephone [facility] [address] [place] [address] Jud Meza MD Nurse Triage 06/04/2025 Refill [facility] [address] [place] [address] Jud Meza MD Type 2 diabetes mellitus with hyperglycemia ([facility]) 06/04/2025 Telephone [facility] [address] [place] [address] Jud Meza MD Medication Question 06/04/2025 Travel 06/02/2025 11:30 AM EDT Office Visit [facility] [address] [place] [address] Jud Meza MD Venous insufficiency (Primary Dx); Diabetes mellitus due to underlying condition with hyperglycemia, without long-term current use of insulin ([facility]); Spondylosis without myelopathy 06/02/2025 Travel 05/30/2025 Telephone [facility] [address] [place] [address] Jud Meza MD chart prep 05/27/[address] [address] Jud Meza MD Durable Medical Equipment 05/27/2025 Refill [facility] [address] [place] [address] Jud Meza MD Chronic pain syndrome 05/26/2025 Telephone [facility] [address] [place] [address] Jud Meza MD Nurse Triage 05/14/2025 3:00 PM EDT Telemedicine [facility] [address] [place] [address] Emilia Reyez PharmD Diabetes mellitus due to underlying condition with hyperglycemia, without long-term current use of insulin ([facility]) (Primary Dx); Uncontrolled type 2 diabetes mellitus with hyperglycemia, without long-term current use of insulin ([facility]) 05/14/2025 Refill [facility] [address] [place] [address] Jud Meaz MD Chronic pain syndrome 05/01/2025 Telephone [facility] [address] [place] [address] Danyelle Juares, LALO 05/01/2025 Telephone [facility] [address] [place] [address] Jud Meza MD Med Refill 04/30/2025 Telephone [facility] [address] [place] [address] Jud Meza MD Medication Question 04/29/2025 Refill [facility] [address] [place] [address] Jud Meza MD Chronic pain syndrome 04/21/2025 2:30 PM EDT Telemedicine [facility] [address] [place] [address] Danyelle Juares, mold engraver right-sided low back pain with bilateral sciatica 04/21/2025 Travel 04/16/2025 Telephone [facility] [address] [place] [address] Jud Meza MD 04/16/2025 Orders Only [facility] [address] [place] [address] Ruben Doe MD 04/15/2025 Refill [facility] [address] [place] [address] Jud Meza MD Chronic pain syndrome 04/15/2025 Telephone [facility] [address] [place] [address] Jud Meza MD 04/15/2025 Travel 04/14/2025 Orders Only [facility] [address] [place] [address] Jud Meza MD 04/04/2025 Results Follow-Up [facility] [address] [place] [phone] Corrine Caro RN Prothrombin Time-INR, Immunoglobulins Panel, Serum, Ferritin, Additional followed-up results: 3 04/01/2025 Refill [facility] [address] [place] [address] Jud Meza MD Chronic pain syndrome 03/29/2025 Refill [facility] [address] [place] [address] Jud Meza MD Diabetes mellitus due to underlying condition with hyperglycemia, without long-term current use of insulin ([facility]) 03/18/2025 Refill [facility] [address] [place] [address] Danyelle Juares RN Chronic pain syndrome 03/18/2025 Telephone [facility] [address] [place] [phone] Jud Meza MD lab order questions 03/18/[address] [address] Jud Meza MD Med Refill from Last 3 Months Immunizations Immunization Administration Dates Next Due Influenza injectable quadriv [...] 20 06/13/2025 2:13 PM EDT Oxygen Saturation 98% 06/02/2025 11:40 AM EDT Inhaled Oxygen Concentration - - Weight 119 kg (262 lb) 06/13/2025 2:13 PM EDT Height 188 cm (6' 2 ) 06/02/2025 11:40 AM EDT Body Mass Index 33.64 06/02/2025 11:40 AM EDT Plan of Treatment Upcoming Encounters Date Type Department Care Team (Late st Contact Info) Description 07/22/2025 3:00 PM EDT Medication Management [facility] [address] [place] [address] Emilia Reyez, PharmD [address] [place] [address] 08/06/2025 3:15 PM EDT Clinical Support [facility] [address] [place] [address] Danyelle Juares, RN [address] [place] [address] Health Maintenance Due Date Last Done Comments CT Colonography 1961 Colonoscopy 1961 Colorectal Cancer Screening 1961 FIT DNA/Cologuard 1961 FIT 1961 FOBT 1961 HIV Screening 1961 Sigmoidoscopy 1961 Disability Screening 1961 Hepatitis C Screening 1979 Pneumococcal Vaccine: 50+ Years (1 of 2 - PCV) 01/07/1980 Zoster Vaccines (1 of 2) 2011 RSV Patients and Patients Aged 60 years or older (1 - Risk 60-74 years 1-dose series) 2021 COVID-19 Vaccine ( season) 2024 04/30/2021, 04/06/2021 Influenza Vaccine (#1) 2025 09/21/2016 Depression Monitoring 07/05/2025 01/02/2025, 025 Diabetes: Hemoglobin A1C 07/16/2025 025, 01/02/2025, 05/14/2024, Additional history exists Eye Exam 08/24/2025 12/06/2023, 12/0 05/2023, 01/27/2023 Alcohol/Substance Use Screening 01/02/2026 01/02/2025 SDOH Screening 01/02/2026 01/02/2025 DTaP/Tdap/Td Vaccines (2 - Td or Tdap) 01/27/2026 01/28/2016 Diabetes: Foot Exam 02/17/2026 02/17/2025 Lipid Panel 02/17/2026 02/17/2025, 06/16, 07/31/2020 Diabetes: Urine Protein Screening 02/19/2026 02/19/2025, 07/01/2022, 07/31/2020 Tobacco Screening 06/13/2026 06/13/2025 HIB Vaccines Aged Out No longer eligi [...] Procedure Name Priority Date/Time Associated Diagnosis Comments POCT GLUCOSE Routine 06/02/2025 12:02 PM EDT Diabetes mellitus due to underlying condition with hyperglycemia, without long-term current use of insulin ([facility]) US ABDOMEN COMPLETE Routine 04/30/2025 Transaminitis POCT GLYCATED HEMOGLOBIN, TOTAL Routine 04/15/2025 2:04 PM EDT Diabetes mellitus due to underlying condition with hyperglycemia, without long-term current use of insulin ([facility]) VASC US LOWER EXTREMITY VENOUS DUPLEX LEFT Routine 04/15/2025 9:05 AM EDT IRON AND TOTAL IRON BINDING CAPACITY Routine 04/01/2025 11:36 AM EDT Transaminitis FERRITIN Routine 04/01/2025 11:36 AM EDT Transaminitis IMMUNOGLOBULINS, QUANTITATIVE, IGA, IGG, IGM Routine 04/01/2025 11:36 AM EDT Transaminitis PROTHROMBIN TIME-INR Routine 04/01/2025 11:36 AM EDT Transaminitis Primary osteoarthritis, other specified site ALBUMIN, RANDOM URINE W/CREATININE Routine 02/19/2025 2:00 PM EDT Diabetes mellitus due to underlying condition with hyperglycemia, without long-term current use of insulin ([facility]) Benign hypertension LIPID PANEL, STANDARD Routine 02/17/2025 1:56 PM EDT Diabetes mellitus due to underlying condition with hyperglycemia, without long-term current use of insulin ([facility]) Benign hypertension DIABETES EYE EXAM Routine 01/27/2023 from Last 3 Months or Most Recently Relevant to Health Maintenance Results * POCT Glucose (06/02/2025 12:02 PM EDT) Glucose Blood, POC 192 60 - 200 mg/dL QC Media Lot # [id number] Lot# Expiration Date ,025 Comment:RANDOM Blood Capillary blood specimen / Unknown 06/02/2025 12:02 PM EDT us Jud Meza MD POINT OF CARE TEST ENTER/ED IT ORDERABLES Final Result * US Abdomen Complete (04/30/2025) Anatomical Region Laterality Modality Abdomen Ultrasound us Jud Meza MD IMG US PROCEDURES Final Res ult * (ABNORMAL) POCT A1C (04/15/2025 2:04 PM EDT) Hemoglobin A1C 8.7(A) 4.0 - 5.7 % QC Media Lot # [id number] Lot# Expiration Date 3,027 Blood 04/15/2025 2:04 PM EDT us Thevenin Beauzile MD POINT OF CARE TEST ENTER/ED IT ORDERABLES Final Result * VASC US LOWER EXTREMITY VENOUS DUPLEX LEFT (04/15/2025 9:05 AM EDT) Historical Provider CV VASCULAR PROCEDURES Fi nal Result * Iron And Total Iron Binding Capacity (04/01/2025 11:36 AM EDT) Pathologist [facility] Iron 67 45 - 160 mcg/dL [facility] Total Iron Binding Capacity 337 228 - 428 mcg/dL [facility] Percent Iron Saturation 20 15 - 50 % [facility] Unsaturated Iron Binding 270 ug/dL [facility] Blood Venous blood specimen / Unknown 04/01/2025 11:36 AM EDT 04/01/2025 2:07 PM EDT Jud Meza MD LAB BLOOD ORDERABLES Final Result Performing Organization Address City/State/[facility] Co de Phone Number [facility] [address] [place] [phone] * Prothrombin Time-INR (04/01/2025 11:36 AM EDT) Pathologist [facility] Prothrombin Time 11.6 10.9 - 12.4 SEC [facility] INTERNATIONAL NORM RATIO 1.0 0.9 - 1.1 [facility] Comment:INTERNATIONAL NORMAL IZED RATIO (INR) REFERENCE [...] 11:36 AM EDT 04/01/2025 2:07 PM EDT Jud Meza MD LAB BLOOD ORDERABLES Final Result Performing Organization Address [facility] Co de Phone Number [facility] [address] [place] [phone] * (ABNORMAL) Immunoglobulins Panel, Serum (04/01/2025 11:36 AM EDT) Pathologist [facility] IMMUNOGLOBULIN G 767 600 - 1540 mg/dL [facility] IMMUNOGLOBULIN A 463(A) 70 - 320 mg/dL [facility] Immunoglobulin M 11(A) 50 - 300 mg/dL [facility] Comment:Verified by repeat a nalysis.THIS TEST WAS PERFORMED AT:[id number] [place] [id number] DAVIS MD Blood Venous blood specimen / Unknown 04/01/2025 11:36 AM EDT 04/01/2025 2:07 PM EDT us Jud Meza MD LAB BLOOD ORDERABLES Final Result Performing Organization Address [facility] Co de Phone Number [facility] [address] [place] [phone] * Ferritin (04/01/2025 11:36 AM EDT) Pathologist [facility] Ferritin 92 20 - 250 ng/mL [facility] Blood Venous blood specimen / Unknown 04/01/2025 11:36 AM EDT 04/01/2025 2:07 PM EDT Jud Meza MD LAB BLOOD ORDERABLES Final Result Performing Organization Address [facility] Co de Phone Number [facility] [address] [place] [phone] * Albumin, Random Urine W/Creatinine (02/19/2025 2:00 PM EDT) Pathologist [facility] Creatinine, Urine 88.32 mg/dL [facility] Microalbumin Urine 14.0 mg/L [facility] Microalbum Creatinine Ratio Ur 15.8 <30 ug/mg cr [facility] Comment:Albumin/Creatinine R atio Reference Ranges: Normal: < 30 ug/mg creatinine Microalbuminuria: 30 - 300 ug/mg creatinineClinical Albuminuria: > 300 ug/mg creatinine Urine (Urine, Random) 02/19/2025 2:00 PM EDT 02/19/2025 6:18 PM EDT us Jud Meza MD LAB URINE ORDERABLES Final Result [facility] [address] [place] [address] [phone] * (ABNORMAL) Lipid Panel, Standard (02/17/2025 1:56 PM EDT) Triglycerides 255(H) <150 mg/dL [facility] Comment:Desirable Triglyceri de: less than 150 mg/dLBorderline High Triglyceride 150-199 mg/dLHigh Triglyceride: 200-499 mg/dLVery High Triglyceride: greater than or equal to 5OO mg/dL Cholesterol 183 <200 mg/dL [facility] Comment:Desirable Cholestero l: less than 200 mg/dLBorderline High Cholesterol: 200-239 mg/dLHigh Cholesterol: greater than 239 mg/dL LDL Cholesterol Calculated 93 <100 mg/dL [facility] Comment:Desirable LDL: less than 100 mg/dLNear Optimal/Above Optimal LDL: 110- 129 mg/dLBorderline High LDL: 130-159 mg/dLHigh LDL: 160-189 mg/dLVery High LDL: greater than or equal to 190 mg/dL HDL Cholesterol 39(L) >40 mg/dL [facility] Comment:Desirable HDL: great er than 40 mg/dL Note: This HDL assay may give artificially low results in patients with liver disease. Blood Venous blood specimen / Unknown 02/17/2025 1:56 PM EDT 02/17/2025 5:26 PM EDT us Jud Meza MD LAB BLOOD ORDERABLES Final Result [facility] [address] [place] [phone] [phone] * (ABNORMAL) Diabetes Eye Exam (01/27/2023) Eye Exam Abnormal(A ) Normal Comment:Glaucoma FU 6months us Mari Aguilarjolynn OD HEALTH MAINTENANCE Final Resul t from Last 3 Months or Most Recently Relevant to Health Maintenance Insurance MEDICARE Care Teams Weapons Electrical Engineering Officer Relationship Specialty Start Date End Date Jud Meza MD [address] [place] [phone] PCP - General Internal Medicine 12/16/11 Emilia Reyez, PharmD [address] [place] [address] Pharmacist Internal Medicine 02/11/25
--- OUTSIDE RECORDS SUMMARY | 2025-06-13 15:11 | XMS_ITS | Encounter Summary ---
Author Organization [employer] Address [address] [place] [address] Care Team Providers Care Bulwark Carpenter Name Role Phone Jud Meza MD Primary Care Provider [phone] Emilia Reyez PharmD Unavailable [phone] Reason for Visit * Reason Onset Date Comments Appointment Request 01/05/2023 Encounter Details Date Type Department Care Team ([facility] st Contact Info) Description 01/05/2023 Telephone [facility] [address] [place] [address] Jud Meza MD [address] [place], [place] [phone] Appointment Request Social History Tobacco Use Types [...] requesting to r/s appt on 01/10/23 ( [employer]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[place] ) Please contact pt at [phone] documented in this encounter Plan of Treatment Upcoming Encounters Date Type Department Care Team ([facility] st Contact Info) Description 07/22/2025 3:00 PM EDT Medication Management [facility] [address] [place] [address] Emilia Reyez PharmD [address] [place] [address] 08/06/2025 3:15 PM EDT Clinical Support [facility] [address] [place] [address] Danyelle Juares RN [address] [place], [place] documented as of this encounter Visit Diagnoses Not on filedocumented in this encounter Care Teams Bulwark Carpenter Relationship Specialty Start Date End Date Jud Meza MD [address] [place] [address] PCP - General Internal Medicine 12/16/11 Emilia Reyez PharmD [address] [place] [address] Pharmacist Internal Medicine 02/11/25 documented as of this encounter
--- OUTSIDE RECORDS SUMMARY | 2025-06-13 15:11 | XMS_ITS | Encounter Summary ---
Author Organization [email or web address] Address [address] [facility] 7 [place] [address] Care Team Providers Care Trolley Collector Name Role Phone Jud Meza MD Primary Care Provider +1 [phone] Emilia Reyez PharmD Unavailable [phone] Reason for Visit * Reason Onset Date Comments Nurse Triage 06/12/2025 Encounter Details Date Type Department Care Team ([facility] st Contact Info) Description 06/12/2025 Telephone [facility] CHC MED & PEDS [address] [place], [place] [phone] Jud Meza MD [address] [place] [address] Nurse Triage Social History Tobacco Use Types [...] encounter Miscellaneous Notes * Telephone Encounter - Jillian Garnica RN - 06/12/2025 2:09 PM EDT called pt to triage, spoke to pt. pt states has a bright red, itchy fine rash on both palms. pt states looked this up on the internet and found Erythromelalgia. advised to pt that this could be many things and not to focus entirely on this possibility. pt denies spread of rash, other illness symptoms, but states has burning sensation of both palms as well. given appt tomorrow with [facility] provider at2:00 for exam. advised home care: observe, cool compresses, and call back as needed. pt understandsand agrees with plan. insurance verified. Protocol Used: Rash or Redness - Localized (Adult) Protocol-Based Disposition: See in Office or Video Visit within 3 Days Video visit offer not recorded Positive Triage Question: * Localized rash present > 7 days * All higher-acuity triage questions were negative Care Advice Discussed: * Reassurance and Education - Mild Localized Rash * Avoid the Cause * Wash the Area * Cold Pack for Mild Itching or Mild Pain * Don't Scratch * Reasons To Call Back - You become worse * Telephone Encounter - Ashish Choudhury - 06/12/2025 1:54 PM EDT Symptom: Rash or Redness on One Body Area Only Outcome: Schedule an urgent appointment (within 4 hours) or talk to a nurse or provider soon Reason: Skin is painful to touch (pins and needles) The caller accepted this outcome. Contact pt at [phone] documented in this encounter Plan of Treatment Upcoming Encounters Date Type Department Care Team ([facility] st Contact Info) Description 07/22/2025 3:00 PM EDT Medication Management [facility] MED & PEDS [address] [place] [address] Emilia Reyez PharmD [address] [place] [address] 08/06/2025 3:15 PM EDT Clinical Support [facility] MED & PEDS [address] [place] [address] Danyelle Juares, LALO 505 [place] [address] documented as of this encounter Visit Diagnoses Not on filedocumented in this encounter Additional Health Concerns Assessment Noted Time PHQ-9 Depression Total Score: 9 01/03/20 3:46 PM EDT documented as of this encounter Care Teams Trolley Collector Relationship Specialty Start Date End Date Jud Meza MD [address] [place] [address] PCP - General Internal Medicine 12/16/11 Emilia Reyez PharmD [address] [place] [address] Pharmacist Internal Medicine 02/11/25 documented as of this encounter
--- OUTSIDE RECORDS SUMMARY | 2025-06-13 15:11 | XMS_ITS | Clinical Summary ---
Author Organization [facility] Address [address] [place] [address] Care Team Providers Care Post Partum Nurse Name Role Phone Jud Meza MD Primary Care Provider [phone] Medications Allopurinol (ZYLOPRIM) 300 MG tablet Take [...] Active Problems No known active problems Immunizations Immunization Administration Dates Next Due COVID-19, mRNA (Pfizer [...] (3 - season) 2024 04/30/2021, 04/06/2021 Influenza (#1) 2025 09/21/2016 DTaP/Tdap/Td (2 - Td or Tdap) 01/27/2026 01/28/2016 RSV (1 - 1-dose 75+ series) 01/07/2036 LDL Cholesterol Discontinued 05/14/2024, 06/16, 07/01/2022, Additional history exists HPV Vaccine (No Doses Required) Completed Hep A Aged Out No longer eligi [...] complete this topic Zoster (Zostavax) Discontinued Insurance MEDICARE PART B MEDICAID Care Teams Post Partum Nurse Relationship Specialty Start Date End Date Jud Meza MD [address] [address] PCP - General Internal Medicine 03/21/24
--- OUTSIDE RECORDS SUMMARY | 2025-06-13 15:11 | XMS_ITS | Encounter Summary ---
Author Organization [employer] Address 75 [facility] 7 [place] [address] Care Team Providers Care Automation And Control Engineer Name Role Phone Jud Meza MD Primary Care Provider [phone] Emilia Reyez PharmD Unavailable [phone] Encounter Details Date Type Department Care Team ([facility] st Contact Info) Description 04/17/2024 Telephone [facility] MEDICINE [address] [place] [address] Jud Meza MD [address] [place], [place] [phone] Social History Tobacco Use Types Packs/Day Years [...] [facility] MED & PEDS [address] [place] [address] Emilia Reyez PharmD [address] [place] [address] 08/06/2025 3:15 PM EDT Clinical Support [facility] MED & PEDS [address] [place] [address] Danyelle Juares, LALO 505 [place] [address] documented as of this encounter Visit Diagnoses Not on filedocumented in this encounter Care Teams Automation And Control Engineer Relationship Specialty Start Date End Date Jud Meza MD [address] [place] [address] PCP - General Internal Medicine 12/16/11 Emilia Reyez PharmD [address] [place] [address] Pharmacist Internal Medicine 02/11/25 documented as of this encounter
--- OUTSIDE RECORDS SUMMARY | 2025-06-13 15:11 | XMS_ITS | Encounter Summary ---
Author Organization [employer] Address 75 [facility] 7 [place] [address] Care Team Providers Care Clay Pigeon Loader Name Role Phone Jud Meza MD Primary Care Provider [phone] Emilia Reyez PharmD Unavailable [phone] Encounter Details Date Type Department Care Team ([facility] st Contact Info) Description 04/05/2024 Orders Only [facility] CHC MED & PEDS [address] [place], [place] [phone] Jud Meza MD 505 [place] [address] Diabetes mellitus due to underlying condition with hyperglycemia, without long-term current use of insulin ([facility]) (Primary Dx) Social History Tobacco Use [...] 3:00 PM EDT Medication Management [facility] MED & PEDS [address] [place] [address] Emilia Reyez PharmD 230 [place] [address] 08/06/2025 3:15 PM EDT Clinical Support [facility] MED & PEDS [address] [place] [address] Danyelle Juares, LALO 505 [place] [address] documented as of this encounter Visit Diagnoses Diagnosis Diabetes mellitus due to underlying condition with hyperglycemia, without long- term current use of insulin ([facility])- Primary documented in this encounter Care Teams Clay Pigeon Loader Relationship Specialty Start Date End Date Jud Meza MD [address] [place] [address] PCP - General Internal Medicine 12/16/11 Emilia Reyez PharmD [address] [place] [address] Pharmacist Internal Medicine 02/11/25 documented as of this encounter
--- OUTSIDE RECORDS SUMMARY | 2025-06-13 15:11 | XMS_ITS | Encounter Summary ---
Author Organization [employer] Address [address] [place] [address] Care Team Providers Care Wind Energy Engineer Name Role Phone Jud Meza MD Primary Care Provider [phone] Emilia Reyez PharmD Unavailable [phone] Reason for Referral * Consultation (Routine) - Closed Specialty Diagnoses / Procedures Referred By Reuben regan Referred To Contact Orthopaedic Surgery Diagnoses Chronic midline low back pain, unspecified whether sciatica present Spondylosis without myelopathy Jud Meza MD [address] [place] [address] Phone: tel: fax: Referral ID Status Reason Start Date Expiration Date V isits Requested Visits Authorized [id number] Closed Specialty Services Required 03/12/2024 03/12/2025 1 1 Encounter Details Date Type Department Care Team (Late st Contact Info) Description 03/12/2024 Orders Only [facility] CHC MED & PEDS [address] [place] [address] Jud Meza MD [address] [place] [address] Chronic midline low back pain, unspecified whether [...] 3:00 PM EDT Medication Management [facility] MED & PEDS [address] [place] [address] Emilia Reyez PharmD 230 [place] [address] 08/06/2025 3:15 PM EDT Clinical Support [facility] MED & PEDS [address] [place] [address] Danyelle Juares, RN 505 [place] [address] Scheduled Referrals Name Type Priority Associated Diagnoses [...] myelopathy documented in this encounter Care Teams Wind Energy Engineer Relationship Specialty Start Date End Date Jud Meza MD [address] [place] [address] PCP - General Internal Medicine 12/16/11 Emilia Reyez PharmD [address] [place] [address] Pharmacist Internal Medicine 02/11/25 documented as of this encounter
--- OUTSIDE RECORDS SUMMARY | 2025-06-13 15:11 | XMS_ITS | Encounter Summary ---
Author Organization [employer] Address 75 [facility] 7 [place] [address] Care Team Providers Care Hitcher Name Role Phone Jud Meza MD Primary Care Provider [phone] Emilia Reyez PharmD Unavailable [phone] Reason for Visit * Reason Comments Med Change Request Encounter Details Date Type Department Care Team ([facility] Contact Info) Description 03/28/2024 Refill [facility] CHC MED & PEDS [address] [place], [place] [phone] Jud Meza MD 505 [place] [address] Diabetes mellitus due to underlying condition with hyperglycemia, without long-term current use of insulin ([facility]) Social History Tobacco Use Types Packs/Day Years [...] PM EDT Medication Management [facility] MED & PEDS [address] [place] [address] Emilia Reyez PharmD 230 [place] [address] 08/06/2025 3:15 PM EDT Clinical Support [facility] MED & PEDS [address] [place] [address] Danyelle Juares, LALO [address] [place], [place] documented as of this encounter Visit Diagnoses Diagnosis Diabetes mellitus due to underlying condition with hyperglycemia, without long- term current use of insulin ([facility]) documented in this encounter Care Teams Hitcher Relationship Specialty Start Date End Date Jud Meza MD [address] [place] [address] PCP - General Internal Medicine 12/16/11 Emilia Reyez PharmD [address] [place] [address] Pharmacist Internal Medicine 02/11/25 documented as of this encounter
--- OUTSIDE RECORDS SUMMARY | 2025-06-13 15:11 | XMS_ITS | Encounter Summary ---
Author Organization [facility] [employer] Address 75 [facility] 7t [place] [address] Care Team Providers Care Tombstone Erector Helper Name Role Phone Jud Meza MD Primary Care Provider [phone] Emilia Reyez PharmD Unavailable [phone] Reason for Visit * Reason Onset Date Comments Med Refill 05/28/2024 Encounter Details Date Type Department Care Team (Late st Contact Info) Description 05/28/2024 Telephone [facility] MEDICINE [address] [place] [address] Jud Meza MD [address] [place], [place] [phone] Med Refill Social History Tobacco Use Types [...] 5-325 MG tablet To be sent to: [facility]/pharmacy #[id number] - [place], [place] - [address] [facility] documented in this encounter Plan of Treatment Upcoming Encounters Date Type Department Care Team (Late st Contact Info) Description 07/22/2025 3:00 PM EDT Medication Management [facility] MED & PEDS [address] [place], [place] [phone] Emilia Reyez PharmD 230 [place] [address] 08/06/2025 3:15 PM EDT Clinical Support [facility] MED & PEDS [address] [place], [place] [phone] Danyelle Juares, LALO [address] [place], [place] documented as of this encounter Visit Diagnoses Not on filedocumented in this encounter Care Teams Tombstone Erector Helper Relationship Specialty Start Date End Date Jud Meza MD 505 [place] [address] PCP - General Internal Medicine 12/16/11 Emilia Reyez PharmD [address] [place] [address] Pharmacist Internal Medicine 02/11/25 documented as of this encounter
--- OUTSIDE RECORDS SUMMARY | 2025-06-13 15:11 | XMS_ITS | Encounter Summary ---
Author Organization [employer] Address 75 [facility] 7t [place] [address] Care Team Providers Care Commercial Door Installer Name Role Phone Jud Meza MD Primary Care Provider [phone] Emilia Reyez PharmD Unavailable [phone] Reason for Visit * Reason Onset Date Comments Med Refill 08/20/2024 Encounter Details Date Type Department Care Team (Late st Contact Info) Description 08/20/2024 Telephone [facility] MEDICINE [address] [place] [address] Jud Meza MD [address] [place], [place] [phone] Med Refill Social History Tobacco Use Types [...] MG tablet To be sent to: [facility]/pharmacy #[id number] - [place], [place] - [address] [facility] documented in this encounter Plan of Treatment Upcoming Encounters Date Type Department Care Team (Late st Contact Info) Description 07/22/2025 3:00 PM EDT Medication Management [facility] MED & PEDS [address] [place] [address] Emilia Reyez PharmD 230 [place] [address] 08/06/2025 3:15 PM EDT Clinical Support [facility] MED & PEDS [address] [place], [place] [phone] Danyelle Juares, LALO [address] [place], [place] documented as of this encounter Visit Diagnoses Not on filedocumented in this encounter Care Teams Commercial Door Installer Relationship Specialty Start Date End Date Jud Meza MD [address] [place], [place] PCP - General Internal Medicine 12/16/11 Emilia Reyez PharmD 230 [place] [address] Pharmacist Internal Medicine 02/11/25 documented as of this encounter
--- OUTSIDE RECORDS SUMMARY | 2025-06-13 15:11 | XMS_ITS | Encounter Summary ---
Author Organization [employer] Address 75 [facility] 7 [place] [address] Care Team Providers Care Wagon Driver Name Role Phone Jud Meza MD Primary Care Provider [phone] Emilia Reyez PharmD Unavailable [phone] Reason for Visit * Reason Onset Date Comments Med Refill 03/18/2025 Encounter Details Date Type Department Care Team (Late st Contact Info) Description 03/18/2025 Telephone [facility] MEDICINE 230 [place] [address] Jud Meza MD 505 [place] [address] Med Refill Social History Tobacco Use Types [...] * Telephone Encounter - Gifty Patterson - 03/18/2025 1:50 PM EDT TC from pt requesting medication refill. Medications needing refill : oxyCODONE-acetaminophen (Percocet) 5-325 MG tablet To be sent to: [facility]/pharmacy #[id number] [place] [address] [address] [facility] documented in this encounter Plan of Treatment Upcoming Encounters Date Type Department Care Team ([facility] st Contact Info) Description 07/22/2025 3:00 PM EDT Medication Management [facility] MED & PEDS [address] [place] [address] Emilia Reyez, PharmD [address] [place] [address] 08/06/2025 3:15 PM EDT Clinical Support [facility] MED & PEDS [address] [place] [address] Danyelle Juares, RN [address] [place] [address] documented as of this encounter Visit Diagnoses Not on filedocumented in this encounter Additional Health Concerns Assessment Noted Time PHQ-9 Depression Total Score: 9 01/03/20 25 3:46 PM EDT documented as of this encounter Care Teams Wagon Driver Relationship Specialty Start Date End Date Jud Meza MD [address] [place] [address] PCP - General Internal Medicine 12/16/11 Emilia Reyez PharmD [address] [place] [address] Pharmacist Internal Medicine 02/11/25 documented as of this encounter
--- OUTSIDE RECORDS SUMMARY | 2025-06-13 15:11 | XMS_ITS | Encounter Summary ---
Author Organization [employer] Address 75 [facility] 7 [place] [address] Care Team Providers Care Decommissioning Well Site Manager Name Role Phone Jud Meza MD Primary Care Provider [phone] Emilia Reyez PharmD Unavailable [phone] Reason for Visit * Reason Onset Date Comments Nurse Triage 05/09/2024 Encounter Details Date Type Department Care Team ([facility] st Contact Info) Description 05/09/2024 Telephone [facility] MEDICINE [address] [place] [address] Jud Meza MD [address] [place], [place] [phone] Nurse Triage Social History Tobacco Use Types [...] 12 months, has t he electric, gas, [employer] or water [email or web address] threatened to shut off services in your [...] [facility] MED & PEDS [address] [place] [address] Emilia Reyez, [place] [address] [place] [address] 08/06/2025 3:15 PM EDT Clinical Support [facility] MED & PEDS [address] [place] [address] Danyelle Juares, LALO 505 [place] [address] documented as of this encounter Visit Diagnoses Not on filedocumented in this encounter Care Teams Decommissioning Well Site Manager Relationship Specialty Start Date End Date Jud Meza MD [address] [place] [address] PCP - General Internal Medicine 12/16/11 Emilia Reyez, PharmD [address] [place] [address] Pharmacist Internal Medicine 02/11/25 documented as of this encounter
--- OUTSIDE RECORDS SUMMARY | 2025-06-13 15:11 | XMS_ITS | Encounter Summary ---
Author Organization [employer] Address 75 [facility] 7t [place] [address] Care Team Providers Care Armature Balancer Name Role Phone Jud Meza MD Primary Care Provider [phone] Emilia Reyez PharmD Unavailable [phone] Encounter Details Date Type Department Care Team ([facility] st Contact Info) Description 11/05/2024 Orders Only [facility] CHC MED & PEDS [address] [place] [address] Provider, MD Ruben Social History Tobacco Use [...] 3:00 PM EDT Medication Management [facility] MED & PEDS [address] [place] [address] Emilia Reyez PharmD [address] [place] [address] 08/06/2025 3:15 PM EDT Clinical Support [facility] MED & PEDS [address] [place], [place] [phone] Danyelle Juares RN 505 [place] [address] documented as of this encounter Procedures Procedure [...] on filedocumented in this encounter Care Teams Armature Balancer Relationship Specialty Start Date End Date Jud Meza MD 505 [place] [address] PCP - General Internal Medicine 12/16/11 Emilia Reyez, AmenaD [address] [place] [address] Pharmacist Internal Medicine 02/11/25 documented as of this encounter
--- OUTSIDE RECORDS SUMMARY | 2025-06-13 15:11 | XMS_ITS | Encounter Summary ---
Author Organization [employer] Address 75 [facility] 7t [place] [address] Care Team Providers Care Finish Sander Name Role Phone Jud Meza MD Primary Care Provider [phone] Emilia Reyez PharmD Unavailable [phone] Encounter Details Date Type Department Care Team (Latest Contact Info) Description 06/13/2025 Travel Social History Tobacco Use Types Packs/Day Years Used Date Smoking Tobacco: Never Passive Smoke Exposure: Never Smokeless Tobacco: Never Depression Answer Date [...] [facility] MED & PEDS [address] [place] [address] Emilia Reyez PharmD [address] [place] [address] 08/06/2025 3:15 PM EDT Clinical Support [facility] MED & PEDS [address] [place] [address] Danyelle Juares, LALO 505 [place] [address] documented as of this encounter Visit Diagnoses Not on filedocumented in this encounter Additional Health Concerns Assessment Noted Time PHQ-9 Depression Total Score: 9 01/03/20 3:46 PM EDT documented as of this encounter Care Teams Finish Sander Relationship Specialty Start Date End Date Jud Meza MD [address] [place] [address] PCP - General Internal Medicine 12/16/11 Emilia Reyez PharmD [address] [place] [address] Pharmacist Internal Medicine 02/11/25 documented as of this encounter
--- OUTSIDE RECORDS SUMMARY | 2025-06-13 15:11 | XMS_ITS | Encounter Summary ---
Author Organization [facility] Address [address] [place] [address] Care Team Providers Care Health Information Director Name Role Phone Jud Meza MD Primary Care Provider [phone] Reason for Visit * Reason Comments Return Call Encounter Details Date Type Department Care Team ([facility] st Contact Info) Description 07/12/2024 Telephone [facility] Orthopedic Surgery [address] [place] [phone] Anthony Castillo MD [address] [place] [address] Return Call Social History Tobacco Use Types [...] over MRI results. Call back number is [phone]. documented in this encounter Plan of Treatment Not on file documented as of this encounter Visit Diagnoses Not on filedocumented in this encounter Care Teams Health Information Director Relationship Specialty Start Date End Date Jud Meza MD [address] [address] PCP - General Internal Medicine 03/21/24 documented as of this encounter
--- OUTSIDE RECORDS SUMMARY | 2025-06-13 15:11 | XMS_ITS | Encounter Summary ---
Author Organization [employer] Address 75 [facility] 7 [place] [address] Care Team Providers Care Photography Sales Associate Name Role Phone Jud Meza MD Primary Care Provider [phone] Emilia Reyez PharmD Unavailable [phone] Reason for Visit * Reason Onset Date Comments Medication Question 05/09/2024 Encounter Details Date Type Department Care Team ([facility] st Contact Info) Description 05/09/2024 Telephone [facility] MEDICINE [address] [place] [address] Jud Meza MD [address] [place], [place] [phone] Medication Question Social History Tobacco Use Types [...] [facility] MED & [facility]EDS [address] [place] [address] Emilia Reyez PharmD 230 [place] [address] 08/06/2025 3:15 PM EDT Clinical Support [facility] MED & PEDS [address] [place] [address] Danyelle Juares, LALO 505 [place] [address] documented as of this encounter Visit Diagnoses Not on filedocumented in this encounter Care Teams Photography Sales Associate Relationship Specialty Start Date End Date Jud Meza MD [address] [place], [place] PCP - General Internal Medicine 12/16/11 Emilia Reyez, [place] [address] [place] [address] Pharmacist Internal Medicine 02/11/25 documented as of this encounter
[2025-06-13 17:26] LABS: MANUAL DIFF FLAG NO
[2025-06-13 17:37] LABS: Hematocrit 43.9 % (42.0-52.0); Hemoglobin 14.4 g/dl (14.0-18.0); Imm Gran Abs Auto 0.01 X10*3/uL (0.00-0.03); Imm Gran Pct Auto 0.1 % (0.0-0.4); Lymphocytes Absolute Auto 2.0 X10*3/uL (1.2-4.9); Mean Corpuscular HGB Conc 32.8 g/dl (31.0-36.0); Mean Corpuscular Hemoglobin 29.4 pg (27.0-33.0); Mean Corpuscular Volume 89.6 fL (80.0-98.0); NRBC Abs Auto 0.000 X10*3/uL (0.0-0.012); NRBC Pct Auto 0.0 /100WBC (0.0-0.2); Platelet Count 259 X10*3/uL (160-400); Red Blood Count 4.90 X10*6/uL (4.60-5.80); White Blood Count 7.7 X10*3/uL (4.8-10.8)
[2025-06-13 18:41] LABS: Alanine Aminotransferase 41 U/L (0-40); Albumin Level 4.4 g/dL (3.5-5.0); Alkaline Phosphatase 78 U/L (39-117); Anion Gap 14 (12-20); Aspartate Amino Transferase 38 U/L (5-37); Blood Urea Nitrogen 19 mg/dL (9-16); Calcium 9.2 mg/dL (8.4-10.2); Carbon Dioxide 25 mmol/L (22-29); Chloride 107 mmol/L (96-108); Estimated Glomerular Filt Rate > 60; Potassium 3.9 mmol/L (3.3-5.1); Sodium 142 mmol/L (135-145); Total Protein 7.0 g/dL (6.5-8.0)
[2025-06-14 03:26] LABS: Syphilis Screen Nonreactive (Nonreactive)
[2025-06-24 13:57] LABS: Anti Nuclear Antibody Screen POSITIVE (NEGATIVE); Anti Nuclear Antibody Titer 1:160 titer
== END 2025-06-13 15:08 | disposition home or self-care (01) ==
LOC: HO.CHCLDS 15:07
PROVIDERS: Visit Provider Registered Nurse
DX: R21 Rash and other nonspecific skin eruption (principal)
CPT/HCPCS: 36415; 80053; 85025; 85652; 86038; 86039; 86780